=== PATIENT | female | born 1980 | race Two or more races ===

== ENCOUNTER → 2020-06-08 08:26 | Outpatient (BNVA) | payer OTHER, SELFPAY | PROVIDERS: PCP Internal Medicine; Visit Provider Obstetrics & Gynecology | DX: Z01.818 Encounter for other preprocedural examination (principal); N92.1 Excessive and frequent menstruation with irregular cycle; D25.9 Leiomyoma of uterus, unspecified | CPT/HCPCS: 99212 ==

== ENCOUNTER 2020-06-13 05:31 | Inpatient (IN) | payer OTHER, SELFPAY ==
--- NOTE | 2020-06-10 14:22 | P.CONAN_ITS ---
Documented by User: Khloe Castellanos 06/10/20 14:22 HPI - Anesthesia Eval Consult details Narrative: 39yo F for Hysterectomy Total Abdominal, Bilateral Salpingectomy COUNTS INCLUDE 234 BEDS AT THE [facility] Past Medical History Medical History Depression Kidney stones Migraines Seizures Surgical History Surgical History History of bilateral tubal ligation Social History Social History Alcohol intake: never Smoking Status: Never smoker Use of substances other than those prescribed or required for medical reasons: No Advance Directives: No Advance Directives Information Provided: No Recently lost weight without trying: No Sexual orientation: Straight/Heterosexual Gender identity: female Meds Allergies Allergy/AdvReac Type Severity Reaction Status Date / Time apple [Apple] Allergy Unknown LIPS SWELL Verified 06/13/20 09:34 Latex, Natural Rubber AdvReac Mild TOPICAL Verified 06/13/20 09:35 IRRITANT Home Medications Medication Instructions Recorded Confirmed Type No Known Home Meds 06/08/20 06/08/20 History Exam Exam Date and Time: June 10, 2020 1422 Assessment and Plan Assessment Anesthesia Assessment: Chart Reviewed Documented by User: Johny Valdez 06/13/20 09:37 COUNTS INCLUDE 234 BEDS AT THE [facility] Past Medical History Medical History Depression Kidney stones Migraines Seizures Surgical History Surgical History History of bilateral tubal ligation Social History Social History Alcohol intake: never Smoking Status: Never smoker Use of substances other than those prescribed or required for medical reasons: No Advance Directives: No Advance Directives Information Provided: No Recently lost weight without trying: No Sexual orientation: Straight/Heterosexual Gender identity: female Meds Allergies Allergy/AdvReac Type Severity Reaction Status Date / Time apple [Apple] Allergy Unknown LIPS SWELL Verified 06/13/20 09:34 Latex, Natural Rubber AdvReac Mild TOPICAL Verified 06/13/20 09:35 IRRITANT Home Medications Medication Instructions Recorded Confirmed Type No Known Home Meds 06/08/20 06/08/20 History Exam Airway Mallampati Class: II TM Dist: >3cm Neck ROM: Full Loose/Missing/Broken Teeth: Yes (#9 chipped, others w less prominent surface irregularities. Several missing) Heart: RRR Assessment and Plan Assessment Anesthesia Assessment: Anesthesia Plan Discussed Final Anesthetic Review NPO: Yes ASA Class: II Anesthetic Plan Anesthetic Plan: GA Disposition: Standard PACU
[2020-06-13] VITALS (16 sets, daily range): BP systolic 120–145; BP diastolic 69–91; PULSE 75–95; RESP 14–18; TEMP 36.5–36.8; O2SAT 92–99; BMI 30.9
[2020-06-13 09:01] LABS: UPreg QC Valid YES; Urine Pregnancy NEGATIVE (NEGATIVE)
--- NOTE | 2020-06-13 09:33 | PC.NURSE ---
CALLED LAB TWICE TO DRAW PATIENT.
--- NOTE | 2020-06-13 09:42 | PC.NURSE ---
RECALLED LAB AGAIN.
[2020-06-13 09:50] LABS: SARS COV2 PCR INHOUSE NEGATIVE (Negative)
--- NOTE | 2020-06-13 09:50 | PC.NURSE ---
PATIENT HAVING LAB DRAWN
[2020-06-13 09:59] LABS: Hematocrit 39.4 % (37-47); Hemoglobin 12.6 g/dl (12.0-16.0); Mean Corpuscular Hemoglobin 29.6 pg (27.0-33.0); Mean Corpuscular Volume 92.5 fL (80-98); Mean Platelet Volume 9.7 fL (9.4-12.3); Platelet Count 334 X10*3/uL (160-400); Red Blood Count 4.26 X10*6/uL (4.20-5.50); Red Cell Distribution Width 12.8 % (11.0-16.0); White Blood Count 6.6 X10*3/uL (4.8-10.8)
--- NOTE | 2020-06-13 10:01 | MHC.SHP ---
Pre-Procedural Eval Section A The patient is an INPATIENT: No Changes since office visit: No Cold of Flu in the past 2 weeks, No New Medical Problems, No Changes in Medication and No Patient answered all questions The History & Physical has been completed within 30 days and I have reviewed it.: Yes Section B Chief Complaint: Metrorrhagia Allergies: Allergies Allergy/AdvReac Type Severity Reaction Status Date / Time apple [Apple] Allergy Unknown LIPS SWELL Verified 06/13/20 09:34 Latex, Natural Rubber AdvReac Mild TOPICAL Verified 06/13/20 09:35 IRRITANT Plan Diagnosis/Plan: Unchanged Patient has been examined and remains a candidate for the planned procedure
[2020-06-13] MEDS: Lactated Ringers 1,000 ML 100 ML IVCONT (10:12)
[2020-06-13] MEDS: ceFAZolin Sodium/Dextrose,Iso 2 GM/50 ML PIGGYBACK IV (10:12)
--- NOTE | 2020-06-13 10:51 | PC.NURSE ---
md rodriguez awaiting lab results for blood type and antibody
--- NOTE | 2020-06-13 13:24 | P.OP_ITS ---
Operative Note Operative Note Narrative: PREOPERATIVE DIAGNOSES: 1. Severe menometrorrhagia unresponsive to medical therapy. 2. Symptomatic fibroid uterus. POSTOPERATIVE DIAGNOSES: 1. Severe menometrorrhagia unresponsive to medical therapy. 2. Symptomatic fibroid uterus. PROCEDURE: Total abdominal hysterectomy& Bilateral salpingectomy ANESTHESIA: General. ESTIMATED BLOOD LOSS: 100 mL. COMPLICATIONS: None. FINDING: Fibroid uterus. SPECIMEN:Uterus, cervix and bilateral fallopin tubes. PROCEDURE IN DETAIL: The patient was prepped and draped in the usual sterile fashion for an abdominal procedure. A scalpel was used to make a midline skin incision, which was carried down sharply through the subcutaneous tissue to the fascia. The fascia was nicked in the midline and incision was carried at the upper and lower edge of the incision with curved Tiwari scissors. The rectus abdominis muscles were sep arated in the midline. The peritoneum was then bluntly entered and this incision was carried down inferiorly and superiorly with care taken to avoid bladder and bowel. The O'Catalino-O'Medellin instrument was then placed without difficulty. The uterus was grasped with 2 Heany clamps on both cornual ends of the uterus and the entire pelvis was then visualized without difficulty. The Right round ligament was grasped with a Heany clamp, suture ligated and transacted using #0 Vycril suture ligature, and the anterior peritoneum dissected down to the bladder flap which was then developed free from the uterus without difficulty.The same was performed on the left side. The utero-ovarian ligaments on both sides were ligated, transacted and sutured using #0 Vycril suture ligature after opening a fenestration in the braod ligament on each side. Careful dissection of the uterus from the pedicle with the uterine arteries and cardinal ligaments was then ligated, transectioned and suture ligated using #0 Vycril suture ligature in an interrupted fashion on the left and right side. This was done without difficulty. The cervix was then developed with careful dissection. Joseluis scissors were then used to remove the cervix from the vaginal cuff. This specimen was sent to pathology. Hemostasis was noted at this point of the procedure. A #0 Vicryl suture ligature was then used in a figure of eight fashion at the angles. Hemostasis was again noted. Atdqfg-gq-hzaxm sutures were then used in an interrupted fashion to close the cuff. Hemostasis was again noted. The entire pelvis was washed. Hemostasis was noted. The fascia was closed using #0 PDS suture in a running fashion. The subQ was closed with 2.0 plane since the thickness is more than 2 cm. The skin was closed with staple gun. Sponge and needle counts were noted to be correct x2 at the end of the procedure. Instrument count was noted to be correct x2 at the end of the procedure. Hemostasis was noted at each level of closure. The patient tolerated the procedure well and went to recovery room in good condition. Cafazolin 2 g IV given preop prior to incision. The patient tolerated the procedure well and was transferred to the PACU in a stable condition. Steen was draining clera urine.
--- NOTE | 2020-06-13 13:43 | PM.OP ---
Brief Operative Note Date of procedure: 06/13/20 Post-op diagnosis: same Procedure: Total abdominal hysterectomy and bilateral salpingectomies Surgeon: Owen Juárez MD Anesthesia: GETA Estimated blood loss (mL): 100 Pathology: other (Right & left fallopian tubes) Condition: stable Disposition: PACU
[2020-06-13] MEDS: Lactated Ringers 1,000 ML 125 ML IVCONT ×2 (13:48→22:34)
[2020-06-13] MEDS: Ketorolac Tromethamine 30 MG/ML VIAL IV (18:02)
[2020-06-13] MEDS: oxyCODONE HCl Immed Release 5 MG TABLET PO (19:46)
[2020-06-13] MEDS: oxyCODONE HCl ER 10 MG TAB.ER.12H PO (22:00)
[2020-06-14] VITALS (7 sets, daily range): BP systolic 103–138; BP diastolic 56–75; PULSE 73–86; RESP 14–18; TEMP 36.4–37.2; O2SAT 1–100; BMI 30.9
[2020-06-14] MEDS: Ketorolac Tromethamine 30 MG/ML VIAL IV (06:06)
[2020-06-14] MEDS: Lactated Ringers 1,000 ML 125 ML IVCONT (06:09)
[2020-06-14 07:10] LABS: Hematocrit 31.1 % (37-47); Hemoglobin 9.7 g/dl (12.0-16.0); Mean Corpuscular HGB Conc 31.2 g/dl (31.0-35.0); Mean Corpuscular Hemoglobin 29.2 pg (27.0-33.0); Mean Corpuscular Volume 93.7 fL (80-98); Mean Platelet Volume 9.9 fL (9.4-12.3); Platelet Count 325 X10*3/uL (160-400); Red Blood Count 3.32 X10*6/uL (4.20-5.50); White Blood Count 12.7 X10*3/uL (4.8-10.8)
--- NOTE | 2020-06-14 07:42 | P.PNOB_ITS ---
DIRECTOR OPERATIONS BROADCAST - Subjective Subjective Interval history: Doing well. No complaints. On bed rest. Steen in, NPO. 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 Physical Exam Vitals Vital signs: Temp Pulse Resp BP Pulse Ox 97.6 F 80 16 106/68 1 L 06/14/20 04:00 06/14/20 04:00 06/14/20 04:00 06/14/20 04:00 06/14/20 04:00 Body Mass Index 30.9 Incision Incision: Incision C/D/I Lungs Respiratory Effort: No intercostal retractions and No accessory muscle usage Auscultation: Clear to auscultation Cardiovascular Auscultation: RRR Abdomen Auscultation/Inspection/Palpation: Soft, Non-distended and Bowel sounds diminished or absent DIRECTOR OPERATIONS BROADCAST - Prog Note: Results Labs CBC & Chem 7: 06/14/20 06:30 Labs: Laboratory Results - last 24 hr 06/13/20 06/13/20 06/13/20 08:34 08:34 09:51 WBC 6.6 RBC 4.26 Hgb 12.6 Hct 39.4 MCV 92.5 MCH 29.6 MCHC 32.0 RDW 12.8 Plt Count 334 MPV 9.7 Absolute Nucleated RBC 0.000 Nucleated RBC % (auto) 0.0 Urine Test NEGATIVE Coronavirus (PCR) NEGATIVE Blood Type Antibody Screen 06/13/20 06/14/20 09:51 06:30 WBC 12.7 H RBC 3.32 L D Hgb 9.7 L D Hct 31.1 L D MCV 93.7 MCH 29.2 MCHC 31.2 RDW 13.0 Plt Count 325 MPV 9.9 Absolute Nucleated RBC 0.000 Nucleated RBC % (auto) 0.0 Urine Test Coronavirus (PCR) Blood Type O Positive Antibody Screen NEGATIVE DIRECTOR OPERATIONS BROADCAST - A/P (1) Metrorrhagia: Problem details: large sxtic myoma Status: Acute Assessment and Plan: Discussed with the patient the intraoperative findings. All questions answered, patient verbalized understanding (2) S/P ARVIN (total abdominal hysterectomy): Problem details: with bilateral salpingectomy Status: Acute Assessment and Plan: Clear liquid diet, hep lock IV when tolerated convert Toradol ibuprofen, ambulate, advance diet as tolerated, DC Steen, call patient does not void in hours. Oxycodone, ibuprofen, Tylenol p.r.n. analgesia. Assessment/Plan Procedure/Diagnosis: Procedures Operation Date: 06/13/20 10:00 Actual Procedures Side Surgeon p Hysterectomy Total Abdominal, Bilateral Salpingectomy Not Applicable Owen Juárez MD Time Spent With Patient Time: Total time spent is greater than 50% in coordination of care (as documented) at patient's floor/unit and/or counseling patient: Time with patient: 15 - 24 minutes
[2020-06-14] MEDS: oxyCODONE HCl ER 10 MG TAB.ER.12H PO ×2 (08:39→22:07)
--- NOTE | 2020-06-14 08:47 | MHC.CM.PN ---
PATIENT IS FULLY INDEPENDENT. NO DME OR [facility]NA SERVICES. SHE WILL NEED A WORK NOTE UPON DISCHARGE, INDICATING DAYS SPENT HERE. ACCORDING TO PATIENT, SHE IS ANTICIPATED TO REMAIN FOR 2-3 DAYS FOLLOWING HER PROCEDURE YESTERDAY CASE MANAGEMENT AVAILABLE FOR ANY DISCHARGE NEEDS.
--- NOTE | 2020-06-14 09:22 | HO.POSTANES ---
Post Anesthesia Evaluation Post Anesthesia Evaluation Vital Signs: Vital Signs Temp Pulse Resp BP Pulse Ox 06/14/20 07:41 98.8 F 73 16 110/66 100 06/14/20 04:00 97.6 F 80 16 106/68 1 L 06/14/20 00:00 98.9 F 83 14 138/75 99 Anesthesia: General Endotracheal-GETA Mental Status: Awake Pain Control: Satisfactory Nausea/Vomiting: None Hydration: Adequate Anesthesia-Related Issues: No Anes. Related Issues
[2020-06-14] MEDS: oxyCODONE HCl Immed Release 5 MG TABLET PO ×2 (10:24→17:03)
[2020-06-14] MEDS: ondansetron HCL 4 MG/2 ML VIAL IVPUSH (18:29)
[2020-06-15 04:00] VITALS: BP 109/62; PULSE 85; RESP 14; TEMP 36.6; O2SAT 95
[2020-06-15] MEDS: oxyCODONE HCl Immed Release 5 MG TABLET PO (06:49)
[2020-06-15 07:54] VITALS: BP 112/58; PULSE 89; RESP 18; TEMP 36.6; O2SAT 95
[2020-06-15] MEDS: oxyCODONE HCl ER 10 MG TAB.ER.12H PO ×2 (09:52→21:11)
[2020-06-15] MEDS: Acetaminophen 325 MG TABLET 650 MG PO ×2 (09:53→20:02)
[2020-06-15 12:00] VITALS: BP 112/35; PULSE 68; RESP 17; TEMP 36.3; O2SAT 95
--- NOTE | 2020-06-15 12:50 | P.PNOB_ITS ---
ROTOR BLADE INSTALLER - Subjective Subjective Interval history: Doing well. No complaints. Ambulating Steen out, tolerating a regular diet. 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 Physical Exam Vitals Vital signs: Temp Pulse Resp BP Pulse Ox 97.9 F 89 18 112/58 L 95 06/15/20 07:54 06/15/20 07:54 06/15/20 07:54 06/15/20 07:54 06/15/20 07:54 Body Mass Index 30.9 Incision Incision: Incision C/D/I Lungs Respiratory Effort: No intercostal retractions and No accessory muscle usage Auscultation: Clear to auscultation Cardiovascular Auscultation: RRR Abdomen Auscultation/Inspection/Palpation: Soft, Non-distended and Bowel sounds diminished or absent ROTOR BLADE INSTALLER - Prog Note: Results Labs CBC & Chem 7: 06/14/20 06:30 ROTOR BLADE INSTALLER - A/P (1) Metrorrhagia: Problem details: large sxtic myoma Status: Acute (2) S/P ARVIN (total abdominal hysterectomy): Problem details: with bilateral salpingectomy Status: Acute Assessment and Plan: Will discharge the patient home, oxycodone 5 mg p.o. Q 3-4 p.r.n. pain, ibuprofen 600 mg p.o. Q 6 hours p.r.n. pain. No up and down the steps no sexual intercourse no driving. Instructions to call if any of the following occur temperature above 100.4, severe abdominal pain, abdominal distention, nausea or vomiting, vaginal bleeding, incisional gapping redness or discharge. Follow up in the office in 2 weeks for incision check and in 4 weeks for postop visit. She is all questions answered patient verbalized understanding. Assessment/Plan Procedure/Diagnosis: Procedures Operation Date: 06/13/20 10:00 Actual Procedures Side Surgeon p Hysterectomy Total Abdominal, Bilateral Salpingectomy Not Applicable Owen Juárez MD Time Spent With Patient Time: Total time spent is greater than 50% in coordination of care (as documented) at patient's floor/unit and/or counseling patient: Time with patient: 15 - 24 minutes
--- NOTE | 2020-06-15 12:55 | P.DS_ITS ---
DS: Providers Provider Date of admission: 06/13/20 05:31 Primary care physician: Delmy Millan MD DS: Diagnosis Discharge Diagnosis (1) Metrorrhagia: Status: Acute Problem details: large sxtic myoma (2) S/P ARVIN (total abdominal hysterectomy): Status: Acute Problem details: with bilateral salpingectomy DS: Medications Discharge Medications Home Medications: Home Medications Oxycodone 5 mg p.o. Q 3-4 p.r.n. pain Ibuprofen 600 mg p.o. Q 6 hours p.r.n. pain. 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 Follow up in the office in 2 weeks for incisional check and 4 weeks for postop visit) Diet: advance to your usual diet
[2020-06-15 15:21] VITALS: BP 101/62; PULSE 91; RESP 18; TEMP 36.7; O2SAT 97
[2020-06-15 19:34] VITALS: BP 112/65; PULSE 88; RESP 17; TEMP 37.1; O2SAT 100
[2020-06-15 23:21] VITALS: BP 101/50; PULSE 81; RESP 19; TEMP 36.3; O2SAT 96
[2020-06-16 04:00] VITALS: BP 107/50; PULSE 86; RESP 19; TEMP 36.4; O2SAT 96
[2020-06-16 08:00] VITALS: BP 111/53; PULSE 89; RESP 19; TEMP 36.7; O2SAT 90
[2020-06-16 08:04] LABS: Glucose, Whole Blood 92 mg/dL (60-115)
--- NOTE | 2020-06-16 08:38 | P.PNOB_ITS ---
AUTO FLEET MAINTENANCE MANAGER - Subjective Subjective Interval history: Doing well. No complaints. Ambulating , the patient developed nausea after regular diet yesterday so she was kept overnight but had dinner andis a tolerating a regular diet. Subjective Findings: Ambulating well: Reports, Flatus passed: Reports, Nausea: Denies and Pain controlled: Reports LURER Physical Exam Vitals Vital signs: Temp Pulse Resp BP Pulse Ox 98.0 F 89 19 111/53 L 90 L 06/16/20 08:00 06/16/20 08:00 06/16/20 08:00 06/16/20 08:00 06/16/20 08:00 Body Mass Index 30.9 Incision Incision: Incision C/D/I Lungs Respiratory Effort: No intercostal retractions and No accessory muscle usage Auscultation: Clear to auscultation Cardiovascular Auscultation: RRR Abdomen Auscultation/Inspection/Palpation: Soft, Non-distended and Bowel sounds diminished or absent AUTO FLEET MAINTENANCE MANAGER - Prog Note: Results Labs CBC & Chem 7: 06/14/20 06:30 Labs: Laboratory Results - last 24 hr 06/16/20 07:12 POC Glucose 92 AUTO FLEET MAINTENANCE MANAGER - A/P (1) Metrorrhagia: Problem details: large sxtic myoma (2) S/P ARVIN (total abdominal hysterectomy): Problem details: with bilateral salpingectomy Assessment and Plan: Will discharge thw patient home, to follow up in 4 days for staple removal, oxycodone 5 mg p.o. Q 3-4 p.r.n. pain, ibuprofen 600 mg p.o. Q 6 p.r.n. pain, call for the following: Temperature above 100.4, abdominal pain, or distention incision redness or gapping or discharge, vaginal bleeding nausea and vomiting. All questions answered patient verbalized understanding. Assessment/Plan Procedure/Diagnosis: Procedures Operation Date: 06/13/20 10:00 Actual Procedures Side Surgeon p Hysterectomy Total Abdominal, Bilateral Salpingectomy Not Applicable Owen Juárez MD Time Spent With Patient Time: Total time spent is greater than 50% in coordination of care (as docu mented) at patient's floor/unit and/or counseling patient: Time with patient: 15 - 24 minutes
--- NOTE | 2020-06-16 08:46 | MHC.CM.PN ---
PATIENT IS DISCHARGED HOME WITH NO SERVICES. FAMILY TO TRANSPORT. RN AWARE OF PLAN.
[2020-06-16] MEDS: oxyCODONE HCl ER 10 MG TAB.ER.12H PO (08:53)
[2020-06-16 11:57] VITALS: BP 114/66; PULSE 85; RESP 19; TEMP 36.8; O2SAT 96
[2020-06-16] MEDS: Acetaminophen 325 MG TABLET 650 MG PO (13:52)
== END 2020-06-16 15:30 | disposition home or self-care (01) | DRG 519 ==
LOC: HO.SSSA 15:29 → HO.S3 16:11
PROVIDERS: Admitting Provider Obstetrics & Gynecology; PCP Internal Medicine; Visit Provider Obstetrics & Gynecology
PROC: 0UT90ZZ Resection of Uterus, Open Approach (ICD-10-PCS; principal; 2020-06-13 10:00)
DX: D25.9 Leiomyoma of uterus, unspecified (principal); F32.9 Major depressive disorder, single episode, unspecified; Z20.828 Contact with and (suspected) exposure to other viral communicable diseases; Z87.442 Personal history of urinary calculi
CPT/HCPCS: 36415; 81025; 82947; 85027; 86850; 86900; 86901; 88307; 88309; J0131; J0330; J0690; J1100; J1170; J1885; J2250; J2405; J3010; U0003

== ENCOUNTER 2020-06-18 21:23 | Inpatient (IN) | payer OTHER, SELFPAY ==
[2020-06-18 21:39] VITALS: BP 91/59; PULSE 103; RESP 14; TEMP 37.9; O2SAT 95; BMI 31.0
--- NOTE | 2020-06-18 21:45 | ED.FEVER ---
HPI - Fever General Chief Complaint: Fever Stated Complaint: Fever Time Seen by Provider: 06/18/20 21:45 Source: patient Mode of arrival: ambulatory Limitations: no limitations History of Present Illness HPI Narrative: This is a 39-year-old female who is postop day 5 status post total abdominal hysterectomy and bilateral salpingectomy. she states that she has been working with the incentive spirometer and describes some urinary frequency but today states that she developed some body aches as well as chills. The patient called the office the surgeon and was told to come into the emergency department. Otherwise, she denies any sore throat, cough, shortness of breath, chest pain / palpitations, GI symptoms. Related Data Home Medications Medication Instructions Recorded Confirmed No Known Home Meds 06/08/20 06/13/20 Previous Rx's Medication Instructions Recorded ibuprofen 600 mg PO Q6H PRN #30 tab 06/15/20 oxycodone 5 mg PO Q3H PRN #20 tab 06/15/20 Allergies Allergy/AdvReac Type Severity Reaction Status Date / Time apple [Apple] Allergy Unknown LIPS SWELL Verified 06/13/20 09:34 Latex, Natural Rubber AdvReac Mild TOPICAL Verified 06/13/20 09:35 IRRITANT Review of Systems Review of Systems: Pertinent positives and negatives as stated in HPI 10 point review of systems otherwise negative. FORMERLY [facility] Past Medical History Source: nursing notes reviewed Medical History Depression Kidney stones Metrorrhagia Migraines Seizures Surgical History History of bilateral tubal ligation S/P ARVIN (total abdominal hysterectomy) Social History Social History Household Members: Spouse Housing: House Alcohol intake: never Smoking Status: Never smoker Use of substances other than those prescribed or required for medical reasons: No Advance Directives: No service: No Current occupational status: employed Sexual orientation: Straight/Heterosexual Gender identity: female Physical Exam Vital Signs: Vital Signs: Last Vital Signs Temp 98.1 F 06/19/20 00:00 Pulse 100 06/19/20 00:00 Resp 16 06/19/20 00:00 BP 115/56 L 06/19/20 00:00 Pulse Ox 100 06/19/20 00:00 Body Mass Index 31.0 VITAL SIGNS: Reviewed. GENERAL: Well developed, well nourished, in no acute distress. HEAD: Normocephalic/atraumatic, EYES: PERRLA, EOMI intact without pain, no nystagmus/pallor/icterus noted EARS: Ext canals without abnormality, TMs non-bulging and non-erythematous NOSE: Nares patent bilateral OROPHARYNX: no oral lesions noted, posterior pharynx clear and non-erythematous without noted tonsillar enlargement/erythema/exudates NECK: Supple, no adenopathy LUNGS: Normal breath sounds. No adventitious sounds or accessory muscle use. SpO2<100> CARDIOVASCULAR: Regular rate and rhythm without noted murmurs, no JVD or lower extremity edema. ABDOMEN: Soft, non-tender, non-distended with bowel sounds. No rigidity. No guarding. No palpable masses or hernias noted, Lower vertical incision without erythema / discharge/induration with good approximation with kana. MUSCULOSKELETAL: No tenderness, deformities, or effusions noted on gross inspection. EXTREMITIES: No cyanosis, clubbing or edema. SKIN: Inspection of the skin reveals no rashes, ulcerations, jaundice, pallor, or petechiae. NEUROLOGIC: Alert and oriented x 4. Strength and sensation to light touch were grossly intact x 4. Course Course Course Narrative: This is a 39-year-old female with history and clinical presentation concerning for possible postsurgical infection versus UTI versus viral illness. Patient was treated with Tylenol for her fever and good resolution. This case was discussed with public service representative, Dr. Juárez who recommends to proceed with CT scan. On review of all investigations there is a noted persistent leukocytosis and CT scan findings suggestive of possible abscess. Review of urinalysis is negative for evidence of infection and chest x-ray is without acute findings. These results and findings were discussed with Dr. Juárez who will be accepting admission of the patient and is recommending initial antibiotics of 2 g of Rocephin and 900 mg of clindamycin. Patient was treated and worked up under the sepsis guidelines. Due to noted elevation of the total bilirubin patient meets severe sepsis criteria. MDM - Fever Lab Data Result diagrams: 06/18/20 22:09 06/18/20 22:09 Labs: Lab Results 06/18/20 06/18/20 06/18/20 Range/Units 22:09 22:09 22:09 WBC 12.7 H (4.8-10.8) X10*3/uL RBC 2.98 L (4.20-5.50) X10*6/uL Hgb 8.9 L (12.0-16.0) g/dl Hct 28.0 L (37-47) % MCV 94.0 (80-98) fL MCH 29.9 (27.0-33.0) pg MCHC 31.8 (31.0-35.0) g/dl RDW 13.2 (11.0-16.0) % Plt Count 403 H (160-400) X10*3/uL MPV 9.4 (9.4-12.3) fL Immature Gran % (Auto) 0.5 H (0.0-0.4) % Neut % (Auto) 82.4 H (45-73) % Lymph % (Auto) 9.6 L (20-40) % [place] % (Auto) 6.1 (2-11) % Eos % (Auto) 1.2 (0-4) % Baso % (Auto) 0.2 (0-2) % Lymph # (Auto) 1.2 (1.2-4.9) X10*3/uL [place] # (Auto) 0.8 (0.1-1.2) X10*3/uL Eos # (Auto) 0.2 (0.0-0.4) X10*3/uL Baso # (Auto) 0.0 (0.0-0.2) X10*3/uL Abs Immat Gran (auto) 0.06 H (0.00-0.03) X10*3/uL Absolute Neuts (auto) 10.4 H (2.0-8.3) X10*3/uL Absolute Nucleated RBC 0.000 (0.0-0.012) X10*3/uL Nucleated RBC % (auto) 0.0 (0.0-0.2) /100WBC Sodium 134 L (135-145) mmol/L Potassium 4.0 (3.3-5.1) mmol/l Chloride 101 (96-108) mmol/L Carbon Dioxide 24 (22-29) mmol/L Anion Gap 13 (12-20) BUN 8 L (9-16) mg/dL Creatinine 0.70 (0.5-1.4) mg/dL Estim Creat Clear Calc 109.6 Estimated GFR > 60 Random Glucose 123 H (60-115) mg/dL Lactic Acid 1.1 (0.5-2.0) mmol/L Calcium 8.0 L (8.4-10.2) mg/dL Total Bilirubin 1.2 H (0.0-1.0) mg/dL AST 18 (5-31) U/L ALT 18 (0-31) U/L Alkaline Phosphatase 53 (39-117) U/L Total Protein 6.4 L (6.5-8.0) g/dL Albumin 3.7 (3.5-5.0) g/dL Urine Color Urine Appearance Urine pH (5.0-8.0) Ur Specific [place] (1.005-1.025) Urine Protein (NEG-TRACE) MG/DL Urine Glucose (UA) (NEG) MG/DL Urine Ketones (NEG) MG/DL Urine Blood (NEG) Urine Nitrite (NEG) Ur Leukocyte Esterase (NEG) Urine RBC (0) /HPF Urine WBC (0-4) /HPF Ur Squamous Epith Cells /LPF Urine Bacteria /LPF 06/18/ Range/Units 23:27 WBC (4.8-10.8) X10*3/uL RBC (4.20-5.50) X10*6/uL Hgb (12.0-16.0) g/dl Hct (37-47) % MCV (80-98) fL MCH (27.0-33.0) pg MCHC (31.0-35.0) g/dl RDW (11.0-16.0) % Plt Count (160-400) X10*3/uL MPV (9.4-12.3) fL Immature Gran % (Auto) (0.0-0.4) % Neut % (Auto) (45-73) % Lymph % (Auto) (20-40) % [place] % (Auto) (2-11) % Eos % (Auto) (0-4) % Baso % (Auto) (0-2) % Lymph # (Auto) (1.2-4.9) X10*3/uL [place] # (Auto) (0.1-1.2) X10*3/uL Eos # (Auto) (0.0-0.4) X10*3/uL Baso # (Auto) (0.0-0.2) X10*3/uL Abs Immat Gran (auto) (0.00-0.03) X10*3/uL Absolute Neuts (auto) (2.0-8.3) X10*3/uL Absolute Nucleated RBC (0.0-0.012) X10*3/uL Nucleated RBC % (auto) (0.0-0.2) /100WBC Sodium (135-145) mmol/L Potassium (3.3-5.1) mmol/l Chloride (96-108) mmol/L Carbon Dioxide (22-29) mmol/L Anion Gap (12-20) BUN (9-16) mg/dL Creatinine (0.5-1.4) mg/dL Estim Creat Clear Calc Estimated GFR Random Glucose (60-115) mg/dL Lactic Acid (0.5-2.0) mmol/L Calcium (8.4-10.2) mg/dL Total Bilirubin (0.0-1.0) mg/dL AST (5-31) U/L ALT (0-31) U/L Alkaline Phosphatase (39-117) U/L Total Protein (6.5-8.0) g/dL Albumin (3.5-5.0) g/dL Urine Color STRAW Urine Appearance CLEAR Urine pH 5.5 (5.0-8.0) Ur Specific [place] <= 1.005 (1.005-1.025) Urine Protein NEG (NEG-TRACE) MG/DL Urine Glucose (UA) NEG (NEG) MG/DL Urine Ketones NEG (NEG) MG/DL Urine Blood TRACE (NEG) Urine Nitrite NEG (NEG) Ur Leukocyte Esterase NEG (NEG) Urine RBC 0 (0) /HPF Urine WBC 0 (0-4) /HPF Ur Squamous Epith Cells 1+ /LPF Urine Bacteria NONE /LPF Discharge Plan Discharge Clinical Impression: Pelvic abscess, Severe sepsis Patient Disposition: Admitted As Inpatient Prescriptions: No Action ibuprofen 600 mg Tablet 600 mg PO Q6H PRN (Reason: Pain, Moderate (Pain Scale 4-6)) Qty: 30 RF: 0 oxycodone 5 mg Tablet 5 mg PO Q3H PRN (Reason: Pain, Moderate (Pain Scale 4-6) Qty: 20 RF: 0 No Known Home Meds RF: 0
--- NOTE | 2020-06-18 21:48 | XR_ITS ---
EXAMINATION: XR CHEST CLINICAL INFORMATION: Baseline COMPARISON: 09/24/2019 TECHNIQUE: Frontal view of the chest was obtained. FINDINGS: No significant abnormality is noted involving the heart, lungs, mediastinum, bony thorax or soft tissues. XR/XR chest 1V IMPRESSION: Unremarkable examination.
[2020-06-18] MEDS: Acetaminophen 325 MG TABLET 975 MG PO (21:54)
[2020-06-18 22:00] VITALS: BP 106/52; PULSE 97; RESP 16; TEMP 38.1; O2SAT 97
[2020-06-18 22:15] LABS: MANUAL DIFF FLAG NO
[2020-06-18 22:16] LABS: Basophils Percent Auto 0.2 % (0-2); Eosinophils Absolute Auto 0.2 X10*3/uL (0.0-0.4); Eosinophils Percent Auto 1.2 % (0-4); Hemoglobin 8.9 g/dl (12.0-16.0); Imm Gran Abs Auto 0.06 X10*3/uL (0.00-0.03); Imm Gran Pct Auto 0.5 % (0.0-0.4); Lymphocytes Absolute Auto 1.2 X10*3/uL (1.2-4.9); Lymphocytes Percent Auto 9.6 % (20-40); Mean Corpuscular HGB Conc 31.8 g/dl (31.0-35.0); Mean Corpuscular Hemoglobin 29.9 pg (27.0-33.0); Mean Platelet Volume 9.4 fL (9.4-12.3); Monocytes Absolute Auto 0.8 X10*3/uL (0.1-1.2); Monocytes Percent Auto 6.1 % (2-11); Neutrophils Absolute Auto 10.4 X10*3/uL (2.0-8.3); Neutrophils Percent Auto 82.4 % (45-73); Platelet Count 403 X10*3/uL (160-400); Red Blood Count 2.98 X10*6/uL (4.20-5.50); Red Cell Distribution Width 13.2 % (11.0-16.0); White Blood Count 12.7 X10*3/uL (4.8-10.8)
[2020-06-18] MEDS: 0.9 % Sodium Chloride 2,460 ML 999 ML IV (22:25)
[2020-06-18 22:40] LABS: Lactic Acid 1.1 mmol/L (0.5-2.0)
[2020-06-18 22:44] LABS: Alanine Aminotransferase 18 U/L (0-31); Albumin Level 3.7 g/dL (3.5-5.0); Alkaline Phosphatase 53 U/L (39-117); Anion Gap 13 (12-20); Aspartate Amino Transferase 18 U/L (5-31); Bilirubin Total 1.2 mg/dL (0.0-1.0); Blood Urea Nitrogen 8 mg/dL (9-16); Carbon Dioxide 24 mmol/L (22-29); Chloride 101 mmol/L (96-108); Creatinine Clr Calc Pharmacy 109.6; Estimated Glomerular Filt Rate > 60; Glucose Random 123 mg/dL (60-115); Sodium 134 mmol/L (135-145); Total Protein 6.4 g/dL (6.5-8.0)
--- NOTE | 2020-06-18 23:05 | CT_ITS ---
EXAMINATION: CT ABDOMEN AND PELVIS WITH CONTRAST CLINICAL INFORMATION: Abdominal pain. Postop day 5 status post ARVIN. COMPARISON: Pelvic ultrasound from 01/05/2020. Abdominal and pelvic CT from 04/15/2008. TECHNIQUE: Contiguous axial thin section helical images of the abdomen and pelvis were performed following the administration of 85 mL of intravenous Omnipaque 350. The data set was reformatted in the coronal and sagittal planes and reviewed on an independent workstation. DLP: 663 mGy-cm. FINDINGS: The visualized lung bases are clear. The visualized portions of the heart are unremarkable. The liver is of normal size and attenuation without focal lesions nor intrahepatic biliary ductal dilation. A normal gallbladder is identified. There is no wall thickening or discernible pericholecystic fluid. The spleen, pancreas, adrenal glands are unremarkable. Both kidneys are of normal size and attenuation without hydronephrosis or nephrolithiasis. Following the administration of IV contrast, prompt symmetric nephrograms are displayed. There is no abdominal free fluid. The uterus is absent. Posterior to the urinary bladder, there is an approximately 3.8 cm heterogeneous predominantly low-attenuation focus with flecks of gas. This is surrounded by a wall with mild enhancement. There is a moderate amount of adjacent pelvic free fluid. There is a small amount of free fluid within both lower quadrants. Midline inferior to the umbilicus, there are surgical kana present and subcutaneous anterior abdominal wall fat stranding consistent with recent surgery. Normal unopacified loops of small and large bowel are identified. There is no pelvic free fluid. The urinary bladder is unremarkable. There is neither pelvic nor inguinal lymphadenopathy. Bone windows: Neither sclerotic nor lytic bone lesions are identified. CT/CT abdomen pelvis w con IMPRESSION: Approximately 3.8 cm mixed attenuation predominantly low-attenuation soft tissue focus present at the previous location of the uterus with adjacent wall enhancement and free fluid concerning for being product support representative of an abscess with several flecks of gas either retained or product support representative of a gas producing organism. Automated exposure control (Care Dose) Adjustment of the mA and/or kv according to patient size (this includes techniques or standardized protocols for targeted exams where dose is matched to indication / reason for exam; i.e. extremities or head).
--- NOTE | 2020-06-18 23:17 | PC.NURSE ---
PT OOB TO BATHROOM WITH SLOW STEADY GAIT. WAITING URINE COLLECTION
[2020-06-18 23:30] VITALS: BP 107/62; PULSE 90; RESP 16; TEMP 37.2; O2SAT 97
[2020-06-18 23:37] LABS: Glucose Urine UA NEG (NEG); Leukocyte Esterase Urine NEG (NEG); Nitrite Urine NEG (NEG); PH 5.5 (5.0-8.0); Specific Gravity - Urine <= 1.005 (1.005-1.025); Urine Blood TRACE (NEG); Urine Ketones NEG (NEG); Urine Protein NEG (NEG-TRACE)
[2020-06-18 23:38] LABS: Appearance Urine CLEAR; Color Urine STRAW
[2020-06-18 23:44] LABS: RBC Urine 0 /HPF (0); Squamous Epithelial Cell Urine 1+ /LPF; WBC Urine 0 /HPF (0-4)
[2020-06-18] MEDS: iohexoL 350 MG/ML 100 ML INFUS..BTL 85 ML IV (23:46)
[2020-06-19] VITALS (7 sets, daily range): BP systolic 100–132; BP diastolic 56–71; PULSE 89–105; RESP 16–20; TEMP 36.3–37.2; O2SAT 97–100
--- NOTE | 2020-06-19 00:17 | P.HPOB_ITS ---
CLINICAL ASSOC - H&P: HPI History of Present Illness Narrative: Magy Sims is a 39 year old female postop day 5 from a total abdominal hysterectomy bilateral salpingectomy who presented emergency room fever 101.4 no other associated symptoms except for urinary frequency no abdominal pain, no GI or symptoms no vaginal discharge no nausea or vomiting. 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 Review of Systems ROS Unobtainable: All systems reviewed & are unremarkable except as noted in HPI and below OB PMFSH Past Medical History Medical History Compression fracture of T11 vertebra Depression Insomnia Kidney stones Metrorrhagia Migraines Seizures Vitamin D deficiency Family History Family History Father Diabetes Hypertension CVD (cardiovascular disease) Stroke Hypercholesterolemia Mother Diabetes Hypertension Hypercholesterolemia Brother Hypertension Maternal Aunt Breast cancer Maternal Grandmother Cervical cancer Paternal Grandmother Breast cancer Surgical History Surgical History History of bilateral tubal ligation S/P ARVIN (total abdominal hysterectomy) S/P ARVIN (total abdominal hysterectomy) Social History Social History Household Members: Family Housing: House Alcohol intake: never Smoking Status: Never smoker service: No Current occupational status: employed Sexual orientation: Straight/Heterosexual Gender identity: female Meds Allergies Allergy/AdvReac Type Severity Reaction Status Date / Time apple [Apple] Allergy Unknown LIPS SWELL Verified 09/22/20 11:47 Latex, Natural Rubber AdvReac Mild TOPICAL Verified 09/22/20 11:47 IRRITANT CLINICAL ASSOC Physical Exam Vitals Vital signs: Temp Pulse Resp BP Pulse Ox 99.0 F 90 16 107/62 97 06/18/20 23:30 06/18/20 23:30 06/18/20 23:30 06/18/20 23:30 06/18/20 23:30 Body Mass Index 31.0 Incision Incision: Incision C/D/I and No drainage Lungs Auscultation: Clear to auscultation Abdomen Auscultation/Inspection/Palpation: Normal bowel sounds, Soft, Non-distended, No tenderness and No CVA tenderness CLINICAL ASSOC - Results Labs CBC & Chem 7: 06/21/20 05:38 06/18/20 22:09 Labs: Short CBC 06/18/20 Range/Units 22:09 WBC 12.7 H (4.8-10.8) X10*3/uL Hgb 8.9 L (12.0-16.0) g/dl Hct 28.0 L (37-47) % Plt Count 403 H (160-400) X10*3/uL BMP 06/18/20 22:09 Sodium 134 L Potassium 4.0 Chloride 101 Carbon Dioxide 24 BUN 8 L Creatinine 0.70 Calcium 8.0 L Liver Function 06/18/20 Range/Units 22:09 Total Bilirubin 1.2 H (0.0-1.0) mg/dL AST 18 (5-31) U/L ALT 18 (0-31) U/L Alkaline Phosphatase 53 (39-117) U/L Albumin 3.7 (3.5-5.0) g/dL Urine 06/18/20 Range/Units 23:27 Urine Color STRAW Urine Appearance CLEAR Urine pH 5.5 (5.0-8.0) Ur Specific [place] <= 1.005 (1.005-1.025) Urine Protein NEG (NEG-TRACE) MG/DL Urine Glucose (UA) NEG (NEG) MG/DL Assessment and Plan (1) Pelvic abscess: Problem details: June 19 2020 Status post total abdominal hysterectomy and bilateral salpingectomies postop day 6 with pelvic infection/abcess patient received IV ceftriaxone and Flagyl for more than 48 hours and will be discharged home on p.o. surface Cipro/Flagyl p.o. b.i.d. for 14 days Status: Acute Blood cultures taken, lactic acid negative, chest x-ray negative;m pt has mild leukocytosis. Will admit the patient start on antibiotics, Ceftriaxone 2 g IV Q 24 hours, clindamycin 900 mg IV Q 8 till the patient is afebrile for 48 hours and them will discharge home on 14 days p.o. antibiotics
[2020-06-19] MEDS: cefTRIAXone sodium 2 GM in 0.9 % Sodium Chloride 50 ML IV ×2 (01:14→20:58)
[2020-06-19] MEDS: Clindamycin Phosphate/D5W 900 MG/50 ML PIGGYBACK 50 MG IV ×3 (01:14→17:06)
[2020-06-19 01:38] LABS: Influenza A PCR NEGATIVE (Negative); Influenza B PCR NEGATIVE (Negative); Resp Syncy Virus RNA Qual PCR NEGATIVE (Negative); SARS COV2 PCR INHOUSE NEGATIVE (Negative)
[2020-06-19] MEDS: Lactated Ringers 1,000 ML 125 ML IVCONT ×2 (03:32→17:09)
[2020-06-19] MEDS: Acetaminophen 325 MG TABLET 650 MG PO (05:47)
[2020-06-19 07:23] LABS: MANUAL DIFF FLAG NO
[2020-06-19 07:36] LABS: Basophils Percent Auto 0.3 % (0-2); Eosinophils Absolute Auto 0.2 X10*3/uL (0.0-0.4); Eosinophils Percent Auto 1.4 % (0-4); Hematocrit 25.6 % (37-47); Imm Gran Abs Auto 0.06 X10*3/uL (0.00-0.03); Imm Gran Pct Auto 0.5 % (0.0-0.4); Lymphocytes Absolute Auto 1.4 X10*3/uL (1.2-4.9); Lymphocytes Percent Auto 11.8 % (20-40); Mean Corpuscular HGB Conc 31.3 g/dl (31.0-35.0); Mean Corpuscular Hemoglobin 29.3 pg (27.0-33.0); Mean Corpuscular Volume 93.8 fL (80-98); Mean Platelet Volume 10.1 fL (9.4-12.3); Monocytes Absolute Auto 0.9 X10*3/uL (0.1-1.2); Monocytes Percent Auto 7.7 % (2-11); Neutrophils Absolute Auto 9.2 X10*3/uL (2.0-8.3); Neutrophils Percent Auto 78.3 % (45-73); Platelet Count 364 X10*3/uL (160-400); Red Blood Count 2.73 X10*6/uL (4.20-5.50); Red Cell Distribution Width 13.1 % (11.0-16.0); White Blood Count 11.8 X10*3/uL (4.8-10.8)
[2020-06-19] MEDS: Docusate Sodium 100 MG CAPSULE PO (10:04)
--- NOTE | 2020-06-19 10:22 | PM.GYNPNOP ---
INTERNAL CONTROL ANALYST - Subjective Subjective Interval history: Doing well. No complaints. Ambulating, voiding freely, tolerating a regular diet. 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 Exam Vitals Vital signs: Temp Pulse Resp BP Pulse Ox 97.4 F 89 20 101/56 L 98 06/19/20 07:49 06/19/20 07:49 06/19/20 07:49 06/19/20 07:49 06/19/20 07:49 Body Mass Index 31.0 Incision Incision: Incision C/D/I Lungs Respiratory Effort: No intercostal retractions and No accessory muscle usage Auscultation: Clear to auscultation Cardiovascular Auscultation: RRR Abdomen Auscultation/Inspection/Palpation: Normal bowel sounds, Soft and Non-distended INTERNAL CONTROL ANALYST - Prog Note: Results Labs CBC & Chem 7: 06/19/20 06:14 06/18/20 22:09 Labs: Laboratory Results - last 24 hr 06/18/20 06/18/20 06/18/20 22:09 22:09 22:09 WBC 12.7 H RBC 2.98 L Hgb 8.9 L Hct 28.0 L MCV 94.0 MCH 29.9 MCHC 31.8 RDW 13.2 Plt Count 403 H MPV 9.4 Immature Gran % (Auto) 0.5 H Neut % (Auto) 82.4 H Lymph % (Auto) 9.6 L [place] % (Auto) 6.1 Eos % (Auto) 1.2 Baso % (Auto) 0.2 Lymph # (Auto) 1.2 [place] # (Auto) 0.8 Eos # (Auto) 0.2 Baso # (Auto) 0.0 Abs Immat Gran (auto) 0.06 H Absolute Neuts (auto) 10.4 H Absolute Nucleated RBC 0.000 Nucleated RBC % (auto) 0.0 Sodium 134 L Potassium 4.0 Chloride 101 Carbon Dioxide 24 Anion Gap 13 BUN 8 L Creatinine 0.70 Estim Creat Clear Calc 109.6 Estimated GFR > 60 Random Glucose 123 H Lactic Acid 1.1 Calcium 8.0 L Total Bilirubin 1.2 H AST 18 ALT 18 Alkaline Phosphatase 53 Total Protein 6.4 L Albumin 3.7 Urine Color Urine Appearance Urine pH Ur Specific [place] Urine Protein Urine Glucose (UA) Urine Ketones Urine Blood Urine Nitrite Ur Leukocyte Esterase Urine RBC Urine WBC Ur Squamous Epith Cells Urine Bacteria Coronavirus (PCR) Influenza Type A (PCR) Influenza Type B (PCR) RSV RNA Qual (PCR) 06/18/20 06/19/20 06/19/20 23:27 00:25 06:14 WBC 11.8 H RBC 2.73 L Hgb 8.0 L Hct 25.6 L MCV 93.8 MCH 29.3 MCHC 31.3 RDW 13.1 Plt Count 364 MPV 10.1 Immature Gran % (Auto) 0.5 H Neut % (Auto) 78.3 H Lymph % (Auto) 11.8 L [place] % (Auto) 7.7 Eos % (Auto) 1.4 Baso % (Auto) 0.3 Lymph # (Auto) 1.4 [place] # (Auto) 0.9 Eos # (Auto) 0.2 Baso # (Auto) 0.0 Abs Immat Gran (auto) 0.06 H Absolute Neuts (auto) 9.2 H Absolute Nucleated RBC 0.000 Nucleated RBC % (auto) 0.0 Sodium Potassium Chloride Carbon Dioxide Anion Gap BUN Creatinine Estim Creat Clear Calc Estimated GFR Random Glucose Lactic Acid Calcium Total Bilirubin AST ALT Alkaline Phosphatase Total Protein Albumin Urine Color STRAW Urine Appearance CLEAR Urine pH 5.5 Ur Specific [place] <= 1.005 Urine Protein NEG Urine Glucose (UA) NEG Urine Ketones NEG Urine Blood TRACE Urine Nitrite NEG Ur Leukocyte Esterase NEG Urine RBC 0 Urine WBC 0 Ur Squamous Epith Cells 1+ Urine Bacteria NONE Coronavirus (PCR) NEGATIVE Influenza Type A (PCR) NEGATIVE Influenza Type B (PCR) NEGATIVE RSV RNA Qual (PCR) NEGATIVE INTERNAL CONTROL ANALYST - A/P (1) Pelvic abscess: Problem details: Status post total abdominal hysterectomy and bilateral salpingectomies postop day 6 with pelvic infection/abcess Status: Acute Assessment and Plan: Discussed with the patient the finding on CT scan CBC chest x-ray. Will keep patient on the same antibiotics ceftriaxone 2 g IV Q 24 hours with clindamycin 900 mg IV Q 8 for a period of 48 hours wit no fever, Colace p.r.n., ambulate as tolerated, compression devices when in bed. If the patient remains afebrile will discharge home 1 p.o. antibiotics for 14 days. Repeat CBC in a.m. if patient spikes fever or does not respond to IV antibiotics will consult Infectious Disease. All questions answered patient verbalized understanding. Time Spent With Patient Time: Total time spent is greater than 50% in coordination of care (as documented) at patient's floor/unit and/or counseling patient: Time with patient: 15 - 24 minutes
--- NOTE | 2020-06-19 10:46 | MHC.CM.PN ---
Pt reports she lives at home with her s/o and three children ages 22, 18, and 17. Pt reports she is independent with all care and mobility, has no services and no DME. Pt confirms Zenaida Millan as her PCP and reports she does not have a HCP. Pt reports she will think about completing one and let CM know. pts current DC plan is home with no services pt will self arrange transport
[2020-06-19] MEDS: Ibuprofen 600 MG TABLET PO (11:26)
[2020-06-19] MEDS: polyethylene glycoL 3350 17 GM POWD.PACK PO (15:00)
[2020-06-20] VITALS (7 sets, daily range): BP systolic 110–147; BP diastolic 58–77; PULSE 77–101; RESP 16–82; TEMP 36.4–36.9; O2SAT 97–100; BMI 31.0
[2020-06-20] MEDS: Clindamycin Phosphate/D5W 900 MG/50 ML PIGGYBACK 50 MG IV ×3 (00:27→15:45)
[2020-06-20] MEDS: diphenhydrAMINE HCL 25 MG TABLET PO (00:56)
[2020-06-20] MEDS: Ibuprofen 600 MG TABLET PO ×3 (01:25→21:27)
[2020-06-20] MEDS: Lactated Ringers 1,000 ML 125 ML IVCONT ×2 (04:02→11:02)
[2020-06-20 06:37] LABS: MANUAL DIFF FLAG NO
[2020-06-20 06:58] LABS: Basophils Percent Auto 0.2 % (0-2); Eosinophils Absolute Auto 0.3 X10*3/uL (0.0-0.4); Eosinophils Percent Auto 2.8 % (0-4); Hematocrit 23.7 % (37-47); Hemoglobin 7.6 g/dl (12.0-16.0); Imm Gran Abs Auto 0.04 X10*3/uL (0.00-0.03); Imm Gran Pct Auto 0.4 % (0.0-0.4); Lymphocytes Percent Auto 19.3 % (20-40); Mean Corpuscular HGB Conc 32.1 g/dl (31.0-35.0); Mean Corpuscular Hemoglobin 30.3 pg (27.0-33.0); Mean Corpuscular Volume 94.4 fL (80-98); Mean Platelet Volume 10.1 fL (9.4-12.3); Monocytes Absolute Auto 0.8 X10*3/uL (0.1-1.2); Monocytes Percent Auto 7.5 % (2-11); Neutrophils Absolute Auto 7.1 X10*3/uL (2.0-8.3); Neutrophils Percent Auto 69.8 % (45-73); Platelet Count 339 X10*3/uL (160-400); Red Blood Count 2.51 X10*6/uL (4.20-5.50); Red Cell Distribution Width 13.2 % (11.0-16.0); White Blood Count 10.1 X10*3/uL (4.8-10.8)
--- NOTE | 2020-06-20 11:14 | P.CDIC_ITS ---
CDI Concurrent Query Service Date: 06/20/20 Documentation Clarification: Please clarify if you are treating a proba ble/suspected/likely or confirmed: Severe Sepsis, treated Severe Sepsis, ruled out Provider Response: Anemia PLEASE DO NOT DELETE/MODIFY EXISTING CONTENT Additional information is needed in order to code to the highest accuracy and appropriate Severity of Illness (SOI). Please clarify the information noted below in your progress notes and discharge summary. Risk Factors/Clinical Indicators/Treatments 39 year old female admitted 5 days s/p Total Abdominal Hysterectomy and Bilateral Salpingectomies with fever, aches, chills, urinary frequency. WBC 12.7 LA 1.1 T 98.1, P 100, R 16, BP 115/56,SAT 100% Treated with IV antibiotics Per ED Impression: Pelvis Abscess and Severe Sepsis CDS: Sandra Mauro RN Contact Number: [phone] Please Review the information above and exercise your independent professional judgment in responding to the query. If you concur, pleas document in the PROGRESS NOTES and DISCHARGE SUMMARY. If you do not agree with the query, please document in the query above. THIS QUERY IS PART OF THE PERMANENT MEDICAL RECORD sepsis ruled out
[2020-06-20 11:41] LABS: MANUAL DIFF FLAG NO
--- NOTE | 2020-06-20 11:41 | MHC.CM.PN ---
Patient is S/P total abd hysterectomy and now has an abd abscess. Patient is on IV clindamycin, IV Ceftriaxone and IV solu-medrol. Discharge plan is home no services. Patient has a ride home. CM will continue to follow patient for discharge needs.
[2020-06-20 11:45] LABS: Basophils Percent Auto 0.2 % (0-2); Eosinophils Absolute Auto 0.3 X10*3/uL (0.0-0.4); Eosinophils Percent Auto 2.6 % (0-4); Hematocrit 26.4 % (37-47); Hemoglobin 8.4 g/dl (12.0-16.0); Imm Gran Abs Auto 0.03 X10*3/uL (0.00-0.03); Imm Gran Pct Auto 0.3 % (0.0-0.4); Lymphocytes Absolute Auto 1.6 X10*3/uL (1.2-4.9); Lymphocytes Percent Auto 15.8 % (20-40); Mean Corpuscular HGB Conc 31.8 g/dl (31.0-35.0); Mean Corpuscular Hemoglobin 30.1 pg (27.0-33.0); Mean Corpuscular Volume 94.6 fL (80-98); Mean Platelet Volume 9.7 fL (9.4-12.3); Monocytes Absolute Auto 0.6 X10*3/uL (0.1-1.2); Monocytes Percent Auto 5.9 % (2-11); Neutrophils Absolute Auto 7.6 X10*3/uL (2.0-8.3); Neutrophils Percent Auto 75.2 % (45-73); Platelet Count 357 X10*3/uL (160-400); Red Blood Count 2.79 X10*6/uL (4.20-5.50); Red Cell Distribution Width 13.2 % (11.0-16.0); White Blood Count 10.2 X10*3/uL (4.8-10.8)
--- NOTE | 2020-06-20 12:09 | PM.GYNPNOP ---
PERFORMANCE MANAGER - Subjective Subjective Interval history: Doing well. No complaints. Ambulating, voiding freely, tolerating a regular diet. no nausea or vomiting, had a bowel movement yesterday after laxative. 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 Exam Vitals Vital signs: Temp Pulse Resp BP Pulse Ox 97.5 F 82 82 H 110/63 100 06/20/20 11:09 06/20/20 11:09 06/20/20 11:09 06/20/20 11:09 06/20/20 11:09 Body Mass Index 31.0 Incision Incision: Incision C/D/I Lungs Respiratory Effort: No intercostal retractions and No accessory muscle usage Auscultation: Clear to auscultation Cardiovascular Auscultation: RRR Abdomen Auscultation/Inspection/Palpation: Soft, Non-distended and Bowel sounds diminished or absent PERFORMANCE MANAGER - Prog Note: Results Labs CBC & Chem 7: 06/20/20 11:29 06/18/20 22:09 Labs: Laboratory Results - last 24 hr 06/20/20 06/20/20 05:40 11:29 WBC 10.1 10.2 RBC 2.51 L 2.79 L Hgb 7.6 L 8.4 L Hct 23.7 L 26.4 L MCV 94.4 94.6 MCH 30.3 30.1 MCHC 32.1 31.8 RDW 13.2 13.2 Plt Count 339 357 MPV 10.1 9.7 Immature Gran % (Auto) 0.4 0.3 Neut % (Auto) 69.8 75.2 H Lymph % (Auto) 19.3 L 15.8 L [place] % (Auto) 7.5 5.9 Eos % (Auto) 2.8 2.6 Baso % (Auto) 0.2 0.2 Lymph # (Auto) 2.0 1.6 [place] # (Auto) 0.8 0.6 Eos # (Auto) 0.3 0.3 Baso # (Auto) 0.0 0.0 Abs Immat Gran (auto) 0.04 H 0.03 Absolute Neuts (auto) 7.1 7.6 Absolute Nucleated RBC 0.000 0.000 Nucleated RBC % (auto) 0.0 0.0 PERFORMANCE MANAGER - A/P (1) Pelvic abscess: Problem details: Status post total abdominal hysterectomy and bilateral salpingectomies postop day 6 with pelvic infection/abcess Status: Acute Assessment and Plan: Will keep the patient on IV ceftriaxone and clindamycin till tomorrow morning if still afebrile with discharge on p.o. Cipro 500 p.o. b.i.d. and Flagyl 500 p.o. b.i.d. for 14 days (2) Anemia: Status: Acute Assessment and Plan: Discussed the patient the drop of her H and H since admission, with the finding on CT scan fluid in the pelvis and is 3.8 cm soft tissue density this is suggestive of hemoperitoneum. So the patient was put on NPO and H&H repeated 6 hours after the previous, Repeat H and H 6 hours after am H and H hematocrit went up to 26.4. Since H&H is stable will the put the patient back on regular diet and [facility] the patient iron sulfate 325 mg p.o. t.i.d. and repeat H&H in am Time Spent With Patient Time: Total time spent is greater than 50% in coordination of care (as documented) at patient's floor/unit and/or counseling patient: Time with patient: 15 - 24 minutes
[2020-06-20] MEDS: Ferrous Sulfate 324 MG TABLET.DR PO ×2 (14:18→21:27)
[2020-06-20] MEDS: cefTRIAXone sodium 2 GM in 0.9 % Sodium Chloride 50 ML IV (21:19)
[2020-06-20] MEDS: diphenhydrAMINE HCL 50 MG/ML VIAL 25 MG IVPUSH (21:26)
[2020-06-20] MEDS: Docusate Sodium 100 MG CAPSULE PO (21:27)
[2020-06-21] MEDS: Clindamycin Phosphate/D5W 900 MG/50 ML PIGGYBACK 50 MG IV ×2 (00:28→08:12)
[2020-06-21 03:27] VITALS: BP 116/71; PULSE 82; RESP 18; TEMP 36.6; O2SAT 98
[2020-06-21 06:38] LABS: MANUAL DIFF FLAG NO
[2020-06-21 06:59] LABS: Basophils Percent Auto 0.3 % (0-2); Eosinophils Absolute Auto 0.3 X10*3/uL (0.0-0.4); Eosinophils Percent Auto 3.4 % (0-4); Hematocrit 26.1 % (37-47); Hemoglobin 8.2 g/dl (12.0-16.0); Imm Gran Abs Auto 0.05 X10*3/uL (0.00-0.03); Imm Gran Pct Auto 0.5 % (0.0-0.4); Lymphocytes Absolute Auto 1.9 X10*3/uL (1.2-4.9); Lymphocytes Percent Auto 20.2 % (20-40); Mean Corpuscular HGB Conc 31.4 g/dl (31.0-35.0); Mean Corpuscular Hemoglobin 29.6 pg (27.0-33.0); Mean Corpuscular Volume 94.2 fL (80-98); Mean Platelet Volume 9.9 fL (9.4-12.3); Monocytes Absolute Auto 0.7 X10*3/uL (0.1-1.2); Monocytes Percent Auto 7.2 % (2-11); Neutrophils Absolute Auto 6.6 X10*3/uL (2.0-8.3); Neutrophils Percent Auto 68.4 % (45-73); Platelet Count 394 X10*3/uL (160-400); Red Blood Count 2.77 X10*6/uL (4.20-5.50); Red Cell Distribution Width 13.2 % (11.0-16.0); White Blood Count 9.6 X10*3/uL (4.8-10.8)
[2020-06-21 07:32] VITALS: BP 119/68; PULSE 80; RESP 18; TEMP 36.7; O2SAT 98
--- NOTE | 2020-06-21 07:34 | PM.GYNPNOP ---
FIRE OFFICIAL - Subjective Subjective Interval history: Doing well. No complaints. Ambulating, voiding freely, tolerating a regular diet. no nausea or vomiting, had a bowel movement yesterday after laxative. 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[employer] Physical Exam Vitals Vital signs: Temp Pulse Resp BP Pulse Ox 98.0 F 80 18 119/68 98 06/21/20 07:32 06/21/20 07:32 06/21/20 07:32 06/21/20 07:32 06/21/20 07:32 Body Mass Index 31.0 Abdomen Auscultation/Inspection/Palpation: Normal bowel sounds, Soft, Non-distended, No tenderness and Other (Incision= clean, dry and intact) FIRE OFFICIAL - Prog Note: Results Labs CBC & Chem 7: 06/21/20 05:38 06/18/20 22:09 Labs: Laboratory Results - last 24 hr 06/20/20 06/21/20 11:29 05:38 WBC 10.2 9.6 RBC 2.79 L 2.77 L Hgb 8.4 L 8.2 L Hct 26.4 L 26.1 L MCV 94.6 94.2 MCH 30.1 29.6 MCHC 31.8 31.4 RDW 13.2 13.2 Plt Count 357 394 MPV 9.7 9.9 Immature Gran % (Auto) 0.3 0.5 H Neut % (Auto) 75.2 H 68.4 Lymph % (Auto) 15.8 L 20.2 Mcpherson % (Auto) 5.9 7.2 Eos % (Auto) 2.6 3.4 Baso % (Auto) 0.2 0.3 Lymph # (Auto) 1.6 1.9 [place] # (Auto) 0.6 0.7 Eos # (Auto) 0.3 0.3 Baso # (Auto) 0.0 0.0 Abs Immat Gran (auto) 0.03 0.05 H Absolute Neuts (auto) 7.6 6.6 Absolute Nucleated RBC 0.000 0.000 Nucleated RBC % (auto) 0.0 0.0 FIRE OFFICIAL - A/P (1) Pelvic abscess: Problem details: Status post total abdominal hysterectomy and bilateral salpingectomies postop day 6 with pelvic infection/abcess Status: Acute Assessment and Plan: Will discharge patient home on ciprofloxacin 500 mg p.o. b.i.d., Flagyl 500 mg p.o. b.i.d. for 14 days. Ibuprofen 600 mg p.o. Q 6 p.r.n. pain, oxycodone 5 mg p.o. q.3h p.r.n. pain. Instructions given to patient to call if bleeding occurs fever above 100.4, abdominal pain, incisinal redness or gapping or discharge, nausea or vomiting. Follow up in the office in 1 week for incision check and in 4 weeks for postop visit. (2) Anemia: Status: Acute Assessment and Plan: H& H has been stable, will discharge the patient on iron sulfate 300 mg p.o. t.i.d. for 6 weeks and repeat CBC afterwards and decide when to stop iron therapy. Time Spent With Patient Time: Total time spent is greater than 50% in coordination of care (as documented) at patient's floor/unit and/or counseling patient: Time with patient: 15 - 24 minutes
--- NOTE | 2020-06-21 07:38 | P.DS_ITS ---
DS: Providers Provider Date of admission: 06/19/20 04:28 Primary care physician: Delmy Millan MD DS: Diagnosis Discharge Diagnosis (1) Pelvic abscess: Status: Acute Problem details: Status post total abdominal hysterectomy and bilateral salpingectomies postop day 6 with pelvic infection/abcess patient received IV ceftriaxone and Flagyl for more than 48 hours and will be discharged home on p.o. surface Cipro/Flagyl p.o. b.i.d. for 14 days (2) Anemia: Status: Acute Problem details: H and H has been stable, will discharge patient on iron sulfate 300 mg p.o. t.i.d. for 6 weeks, CBC will be repeated then. DS: Medications Discharge Medications Home Medications: Home Medications Medication Instructions Recorded Confirmed No Known Home Meds 06/08/20 06/13/20 Previous Rx's Medication Instructions Recorded ibuprofen 600 mg PO Q6H PRN #30 tab 06/15/20 oxycodone 5 mg PO Q3H PRN #20 tab 06/15/20 LEAD INSTALLER D/C Summary Hospital Course Hospital Course: Patient was admitted for suspicion of pelvic abscess by CT scan after spiking fever home and in the emergency, ceftriaxone 2 g Q 24 hours was started with clindamycin 900 mg IV q.8, patient has never spiked fever for 48 hours afterw remy, H and H dropped but repeat H and H yesterday went back up and stabilized at 26.1. Patient was asymptomatic stable vital signs ambulating voiding freely having bowel movements. The patient did well with no complications Status at Discharge Functional status at discharge: independent ambulation Overall status at discharge: patient is progressing back to baseline Time Spent with Patient Time attestation: Total time spent providing and/or coordinating discharge services: Quality: VTE Documentation of Mechanical Device: Intermittent pneumatic compression boot Deep Vein Thrombosis/Pulmonary Embolism Present on Admission: No LEAD INSTALLER Physical Exam Vitals Vital signs: Temp Pulse Resp BP Pulse Ox 98.0 F 80 18 119/68 98 06/21/20 07:32 06/21/20 07:32 06/21/20 07:32 06/21/20 07:32 06/21/20 07:32 Body Mass Index 31.0 Abdomen Auscultation/Inspection/Palpation: Normal bowel sounds, Soft, Non-distended, No tenderness and Other (Incision= clean, dry and intact) DRIVEWAY ATTENDANT Discharge Summary Data Data Completed and Pending Completed studies during hospitalization: Procedures Resection of Bilateral Fallopian Tubes, Open Approach (06/13/20) Resection of Bilateral Ovaries, Open Approach (06/13/20) Resection of Uterus, Open Approach (06/13/20) Labs on day of discharge: Labs from last 24 hours 06/21/20 06/20/20 05:38 11:29 WBC 9.6 10.2 RBC 2.77 L 2.79 L Hgb 8.2 L 8.4 L Hct 26.1 L 26.4 L MCV 94.2 94.6 MCH 29.6 30.1 MCHC 31.4 31.8 RDW 13.2 13.2 Plt Count 394 357 MPV 9.9 9.7 Immature Gran % (Auto) 0.5 H 0.3 Neut % (Auto) 68.4 75.2 H Lymph % (Auto) 20.2 15.8 L [place]field % (Auto) 7.2 5.9 Eos % (Auto) 3.4 2.6 Baso % (Auto) 0.3 0.2 Lymph # (Auto) 1.9 1.6 [place] # (Auto) 0.7 0.6 Eos # (Auto) 0.3 0.3 Baso # (Auto) 0.0 0.0 Abs Immat Gran (auto) 0.05 H 0.03 Absolute Neuts (auto) 6.6 7.6 Absolute Nucleated RBC 0.000 0.000 Nucleated RBC % (auto) 0.0 0.0 Preliminary micro results at discharge 06/18/20 22:26 Blood Culture - Preliminary Blood - Venous No growth after 48 hours. 06/18/20 22:09 Blood Culture - Preliminary Blood - Venous No growth after 48 hours. DS: Plan Patient/Caregiver Discharge Instructions Activity: increase activity as tolerated and other (Call if any of the following occur: Abdominal pain, incisional redness or gapping or discharge, nausea or vomiting, temperature above 100.4, vaginal bleeding. Follow up in the office in 1 week for incisional check and 4 weeks for postop visit. Call for any of any of the following occurs temperat) Diet: advance to usual diet Forms: Patient Portal Discharge page
[2020-06-21] MEDS: Ferrous Sulfate 324 MG TABLET.DR PO ×2 (08:12→14:01)
--- NOTE | 2020-06-21 08:38 | MHC.CM.PN ---
Patient will be discharged home no services. Patient will set up transport.
[2020-06-21 11:23] VITALS: BP 119/70; PULSE 87; RESP 18; TEMP 36.4; O2SAT 99
== END 2020-06-21 14:27 | disposition home or self-care (01) | DRG 721 ==
LOC: HO.ED 06-19 00:36 → HO.IMC 06-19 05:01
PROVIDERS: Admitting Provider Obstetrics & Gynecology; Emergency Provider Student in an Organized Health Care Education/Training Program; PCP Internal Medicine; Visit Provider Obstetrics & Gynecology
DX: T81.43XA Infection following a procedure, organ and space surgical site, initial encounter (principal); F32.9 Major depressive disorder, single episode, unspecified; N73.9 Female pelvic inflammatory disease, unspecified; Z20.828 Contact with and (suspected) exposure to other viral communicable diseases; Z79.1 Long term (current) use of non-steroidal anti-inflammatories (NSAID); Z79.899 Other long term (current) drug therapy
CPT/HCPCS: 0241U; 36415; 71045; 74177; 80053; 81001; 83605; 85025; 87040; 96365; 99285; J0696; J1200; Q0163; Q9967

== ENCOUNTER → 2020-06-24 15:15 | Outpatient (BNVA) | payer OTHER, SELFPAY | PROVIDERS: Visit Provider Obstetrics & Gynecology | DX: Z48.89 Encounter for other specified surgical aftercare (principal); Z90.710 Acquired absence of both cervix and uterus | CPT/HCPCS: 99212 ==

== ENCOUNTER → 2020-07-14 13:54 | Outpatient (BNVA) | payer OTHER, SELFPAY | PROVIDERS: Visit Provider Obstetrics & Gynecology | DX: D64.9 Anemia, unspecified (principal); Z90.710 Acquired absence of both cervix and uterus | CPT/HCPCS: 99212 ==

== ENCOUNTER 2020-08-23 14:37 | Outpatient (REF) | payer OTHER, SELFPAY ==
[2020-08-23 16:02] LABS: Hematocrit 38.9 % (37-47); Hemoglobin 12.4 g/dl (12.0-16.0); Mean Corpuscular HGB Conc 31.9 g/dl (31.0-35.0); Mean Corpuscular Volume 91.1 fL (80-98); Mean Platelet Volume 9.8 fL (9.4-12.3); Platelet Count 439 X10*3/uL (160-400); Red Blood Count 4.27 X10*6/uL (4.20-5.50); White Blood Count 10.2 X10*3/uL (4.8-10.8)
== END 2020-08-23 14:38 | disposition home or self-care (01) ==
LOC: HO.LAB 14:37
PROVIDERS: PCP Internal Medicine; Visit Provider Obstetrics & Gynecology
DX: N93.9 Abnormal uterine and vaginal bleeding, unspecified (principal); D64.9 Anemia, unspecified; Z90.710 Acquired absence of both cervix and uterus
CPT/HCPCS: 36415; 85027; 99212

== ENCOUNTER → 2020-09-22 11:47 | Outpatient (BNVA) | payer OTHER, SELFPAY | PROVIDERS: PCP Internal Medicine; Visit Provider Obstetrics & Gynecology ==

== ENCOUNTER 2020-12-26 15:43 | Outpatient (REF) | payer OTHER, SELFPAY ==
--- NOTE | ~2020-12-26 | MM_ITS ---
EXAMINATION: MM SCREENING DIGITAL BREAST TOMOSYNTHESIS, BILATERAL CLINICAL INFORMATION: Screening. Asymptomatic. The lifetime risk of breast cancer based on the Tyrer-Cuzick Model is 13.5%. COMPARISON: Mammography: March 17, 2019 and studies dating back to May 30, 2012 TECHNIQUE: Digital breast tomosynthesis is performed in both the craniocaudal and mediolateral oblique views along with computer-aided detection (CAD). Synthesized 2D images are generated from the tomosynthesis. FINDINGS: There are scattered areas of fibroglandular density (ACR BI-RADS breast composition Category b). There are no significant masses, abnormal calcifications, or other abnormalities. MM/MM tomosynthesis screening BI IMPRESSION: There are no significant changes from prior study. ASSESSMENT: BI-RADS 1: Negative RECOMMENDATION: Routine annual mammography screening. This patient's information was entered into a reminder system with a target due date for their next mammogram.
== END 2020-12-26 15:44 | disposition home or self-care (01) ==
LOC: HO.MAMMO 15:43
PROVIDERS: PCP Internal Medicine; Visit Provider Internal Medicine
DX: Z12.31 Encounter for screening mammogram for malignant neoplasm of breast (principal)
CPT/HCPCS: 77063; 77067

== ENCOUNTER 2021-01-19 13:49 | Outpatient (REF) | payer OTHER, SELFPAY | END 2021-01-19 13:50 | disposition home or self-care (01) | LOC: HO.LNP 13:49 | PROVIDERS: Visit Provider Hospitalist | DX: Z20.822 Contact with and (suspected) exposure to COVID-19 (principal); J01.90 Acute sinusitis, unspecified | CPT/HCPCS: 86769; U0003; U0005 ==

== ENCOUNTER 2021-02-18 00:29 | Emergency (ER) | payer OTHER, SELFPAY ==
[2021-02-18 00:43] VITALS: BP 134/85; PULSE 77; RESP 16; TEMP 36.7; O2SAT 100; BMI 29.2
[2021-02-18 01:11] LABS: IDNOW Serial# 9DD0AD1C; Strep A Nucleic Acid Negative (Negative)
[2021-02-18 01:28] LABS: COVID-19 Test Negative (Negative)
--- NOTE | 2021-02-18 02:28 | ED_ITS ---
HPI - General Adult General Chief complaint: General Medical Stated complaint: sore throat Time Seen by Provider: 02/18/21 02:27 Source: patient Mode of arrival: ambulatory History of Present Illness HPI narrative: 40-year-old female with sore throat for 2 days, without associated fevers, chills, cough, ear pain, difficulty swallowing, shortness of breath. Patient denies any exposure to COVID-19 and denies any history of cigarette smoking. Related Data Previous Rx's Medication Instructions Recorded docusate sodium 100 mg capsule 100 mg PO DAILY PRN 30 Days #30 cap 06/29/20 ibuprofen 800 mg tablet 800 mg PO Q8H PRN 10 Days #30 tab 06/29/20 cyclobenzaprine 5 mg tablet 5 mg PO TID PRN #15 tab 10/11/20 naproxen 500 mg tablet 500 mg PO BID PRN #60 tab 10/11/20 prednisone 20 mg tablet 20 mg PO DAILY 9 Days #18 tab 12/12/20 amoxicillin 875 mg-potassium 1 tab PO BID #20 tab 01/20/21 clavulanate 125 mg tablet prednisone 20 mg tablet 20 mg PO .COMPLEX #18 tab 01/20/21 Allergies Allergy/AdvReac Type Severity Reaction Status Date / Time apple [Apple] Allergy Unknown LIPS SWELL Verified 01/19/21 11:16 Latex, Natural Rubber AdvReac Mild TOPICAL Verified 01/19/21 11:16 IRRITANT Review of Systems Review of Systems: Pertinent positives and negatives as stated in HPI 10 point review of systems is otherwise negative. PMFSH Past Medical History Source: nursing notes reviewed Medical History Compression fracture of T11 vertebra Depression Insomnia Kidney stones Metrorrhagia Migraines Seizures Vitamin D deficiency Surgical History History of bilateral tubal ligation S/P ARVIN (total abdominal hysterectomy) S/P ARVIN (total abdominal hysterectomy) Family History Family History Father Diabetes Hypertension CVD (cardiovascular disease) Stroke Hypercholesterolemia Mother Diabetes Hypertension Hypercholesterolemia Brother Hypertension Maternal Aunt Breast cancer Maternal Grandmother Cervical cancer Paternal Grandmother Breast cancer Social History Social History Household Members: Family Housing: House Do you presently have visiting nurse or other home services: No Unable to assess alcohol history related to: Unknown Alcohol intake: never Advance Directives: No Advance Directives Information Provided: No Patient : No service: No Current occupational status: employed Sexual orientation: Straight/Heterosexual Gender identity: female Physical Exam Vital Signs: Vital Signs: Last Vital Signs Temp 98.0 F 02/18/21 00:43 Pulse 77 02/18/21 00:43 Resp 16 02/18/21 00:43 BP 134/85 02/18/21 00:43 Pulse Ox 100 02/18/21 00:43 Body Mass Index 29.2 VITAL SIGNS: Reviewed. GENERAL: Well developed, well nourished, in no acute distress. HEAD: Normocephalic/atraumatic EYES: PERRLA, EOMI EARS: Ext canals without abnormality, TMs non-bulging and non-erythematous NOSE: Nares patent bilateral OROPHARYNX: no oral lesions noted, posterior pharynx clear and non-erythematous without noted tonsillar enlargement/erythema/exudates NECK: Supple, no adenopathy LUNGS: Normal breath sounds. No adventitious sounds or accessory muscle use. SpO2<100> CARDIOVASCULAR: Regular rate and rhythm without noted murmurs ABDOMEN: Soft, non-tender, non-distended with bowel sounds. SKIN: Inspection of the skin reveals no rashes NEUROLOGIC: Alert and oriented x 4. Course Course Course Narrative: 40-year-old female with history and clinical presentation after review of investigations consistent with a viral pharyngitis as well as laryngitis. No suspicion for retropharyngeal abscess. Patient is stable for discharge Medical Decision Making Lab Data Labs: Lab Results 02/18/21 02/18/21 Range/Units 00:50 00:50 COVID-19 (ISHAN) Negative (Negative) COVID-19 Clin Com See Note S. pyogenes GrpA GABY Negative (Negative) Discharge Plan Discharge Clinical Impression: Laryngitis Patient Disposition: Home, Self-Care Instructions: Laryngitis (ED) Additional Instructions: 1. Resume all home medications as prescribed. 2. Follow-up with your primary care provider in the next 2-3 days for re- evaluation and further outpatient management. 3. Gargle with saline (this is a mixture of table salt and warm water) for 5 minutes, to-3 times a day. 4. [id number] Tylenol/ibuprofen as needed for additional symptom relief. Return to the ER for acute worsening of symptoms. Prescriptions: No Action cyclobenzaprine 5 mg tablet 5 mg PO TID PRN (Reason: muscle spasm) Qty: 15 RF: 0 naproxen 500 mg tablet 500 mg PO BID PRN (Reason: pain) Qty: 60 RF: 0 docusate sodium [Colace] 100 mg capsule 100 mg PO DAILY PRN (Reason: constipation) 30 Days Qty: 30 RF: 0 ibuprofen 800 mg tablet 800 mg PO Q8H PRN (Reason: pain) 10 Days Qty: 30 RF: 0 prednisone 20 mg tablet 20 mg PO DAILY 9 Days Qty: 18 RF: 0 prednisone 20 mg tablet 20 mg PO .COMPLEX Qty: 18 RF: 0 amoxicillin-pot clavulanate [Augmentin] 875-125 mg tablet 1 tab PO BID Qty: 20 RF: 0 Referrals: Po,Delmy Jeffries MD [Primary Care Provider] - 2 days
== END 2021-02-18 02:39 | disposition home or self-care (01) ==
PROVIDERS: Emergency Provider Student in an Organized Health Care Education/Training Program; PCP Internal Medicine
DX: J04.0 Acute laryngitis (principal); Z20.822 Contact with and (suspected) exposure to COVID-19
CPT/HCPCS: 36415; 87635; 87651; 99283

== ENCOUNTER 2021-04-11 08:30 | Outpatient (REF) | payer OTHER, SELFPAY ==
[2021-04-11 09:28] LABS: MANUAL DIFF FLAG NO
[2021-04-11 09:33] LABS: Basophils Percent Auto 0.2 % (0-2); Eosinophils Absolute Auto 0.1 X10*3/uL (0.0-0.4); Eosinophils Percent Auto 1.7 % (0-4); Hematocrit 39.9 % (37-47); Hemoglobin 12.6 g/dl (12.0-16.0); Imm Gran Abs Auto 0.02 X10*3/uL (0.00-0.03); Imm Gran Pct Auto 0.2 % (0.0-0.4); Lymphocytes Absolute Auto 2.5 X10*3/uL (1.2-4.9); Lymphocytes Percent Auto 30.2 % (20-40); Mean Corpuscular HGB Conc 31.6 g/dl (31.0-35.0); Mean Corpuscular Hemoglobin 29.4 pg (27.0-33.0); Mean Platelet Volume 9.9 fL (9.4-12.3); Monocytes Absolute Auto 0.5 X10*3/uL (0.1-1.2); Monocytes Percent Auto 5.7 % (2-11); Neutrophils Absolute Auto 5.1 X10*3/uL (2.0-8.3); Platelet Count 364 X10*3/uL (160-400); Red Blood Count 4.29 X10*6/uL (4.20-5.50); Red Cell Distribution Width 13.2 % (11.0-16.0); Retic HGB Equivalent 32.1 pg (30.0-35.0); Reticulocyte Percent 1.1 % (0.5-1.8); Reticulocytes Absolute 0.047 X10*6/uL (0.026-0.095); White Blood Count 8.2 X10*3/uL (4.8-10.8)
[2021-04-11 10:03] LABS: Alanine Aminotransferase 15 U/L (0-31); Alkaline Phosphatase 66 U/L (39-117); Anion Gap 10 (12-20); Aspartate Amino Transferase 15 U/L (5-31); Bilirubin Total 0.7 mg/dL (0.0-1.0); Blood Urea Nitrogen 8 mg/dL (9-16); Carbon Dioxide 26 mmol/L (22-29); Chloride 108 mmol/L (96-108); Cholesterol 192 mg/dL; Estimated Glomerular Filt Rate > 60; Glucose Random 92 mg/dL (60-115); HDL Cholesterol 42 mg/dL; Iron 84 mcg/dL (30-160); LDL Cholesterol Calculated 125 mg/dl; Percent Iron Saturation 26 % (15-50); Potassium 4.6 mmol/L (3.3-5.1); Sodium 139 mmol/L (135-145); Total Iron Binding Capacity 326 mcg/dL (228-428); Total Protein 6.9 g/dL (6.5-8.0); Triglycerides 128 mg/dL; Unsaturated Iron Binding 242 ug/dL
[2021-04-11 10:11] LABS: Ferritin 83 ng/mL (10-250); Free T4 (Free Thyroxine) 0.85 ng/dL (0.71-1.85); Thyroid Stimulating Hormone 1.37 uIU/mL (0.32-4.0)
[2021-04-11 10:25] LABS: Folate 16.9 ng/mL (> or = 4.0); Vitamin B12 605 pg/mL (200-900)
== END 2021-04-11 08:31 | disposition home or self-care (01) ==
LOC: HO.LAB 08:30
PROVIDERS: PCP Internal Medicine; Visit Provider Internal Medicine
DX: R56.9 Unspecified convulsions (principal); E78.00 Pure hypercholesterolemia, unspecified
CPT/HCPCS: 36415; 80053; 80061; 82306; 82607; 82728; 82746; 83540; 84439; 84443; 85025; 85045

== ENCOUNTER 2021-04-13 16:19 | Emergency (ER) | payer OTHER, SELFPAY ==
[2021-04-13 16:33] VITALS: BP 124/78; PULSE 100; RESP 16; TEMP 36.9; O2SAT 98; BMI 29.9
[2021-04-13 20:40] VITALS: BP 112/66; PULSE 91; RESP 18; TEMP 38.1; O2SAT 99
--- NOTE | 2021-04-13 21:08 | ED.URI ---
HPI - URI/Sore Throat General Chief Complaint: Upper Respiratory Symptoms Stated Complaint: body weakness, headache Time Seen by Provider: 04/13/21 21:00 Source: patient Mode of arrival: ambulatory Limitations: no limitations History of Present Illness HPI Narrative: Patient presents with approximately 24 hours worth of URI symptoms. Cough which has since resolved. Positive runny nose positive scratchy throat. No shortness of breath. No nausea vomiting diarrhea or constipation. Positive mild headache. She took DayQuil early in the morning but so far nothing else. She states she had a fever yesterday. She feels like she is developing a fever now. She is not vaccinated against COVID. She does not know of any COVID contacts. She comes in for COVID testing. Related Data Previous Rx's Medication Instructions Recorded fexofenadine 180 mg tablet 180 mg PO DAILY #30 tab 03/07/21 (Ruth Allergy) Allergies Allergy/AdvReac Type Severity Reaction Status Date / Time apple [Apple] Allergy Unknown LIPS SWELL Verified 03/07/21 08:47 Latex, Natural Rubber AdvReac Mild TOPICAL Verified 03/07/21 08:47 IRRITANT Review of Systems Constitutional: Constitutional: Reports fatigue and Reports fever(s) ENT: Comments: Positive rhinorrhea and mild sore throat Cardiovascular: Comments: No chest pain Respiratory: Comments: Cough without phlegm or shortness of breath Gastrointestinal: Comments: No nausea vomiting diarrhea Neurologic: Comments: Headache. She has remote history of migraines and seizures for which he does not take medication as she has not had a seizure or migraine in over 6 years. This headache feels with vague in different from her prior history of migraines. No weakness numbness or paresthesias Endocrine: Endocrine: Reports fatigue PMFSH Past Medical History Medical History Compression fracture of T11 vertebra Depression Insomnia Kidney stones Metrorrhagia Migraines Seizures Vitamin D deficiency Surgical History History of bilateral tubal ligation S/P ARVIN (total abdominal hysterectomy) S/P ARVIN (total abdominal hysterectomy) Family History Family History Father Diabetes Hypertension CVD (cardiovascular disease) Stroke Hypercholesterolemia Mother Diabetes Hypertension Hypercholesterolemia Brother Hypertension Maternal Aunt Breast cancer Maternal Grandmother Cervical cancer Paternal Grandmother Breast cancer Social History Social History Household Members: Family Housing: Apartment Do you presently have visiting nurse or other home services: No Unable to assess alcohol history related to: Unknown Alcohol intake: never Patient Tobacco Use Status: Never used Tobacco e-Cigarette/Vaping Use: Never Used Second Hand Smoke Exposure: No Advance Directives: No Advance Directives Information Provided: No service: No Current occupational status: employed Sexual orientation: Straight/Heterosexual Gender identity: Female Physical Exam Vital Signs: Vital Signs: Last Vital Signs Temp 100.6 F H 04/13/21 20:40 Pulse 91 04/13/21 20:40 Resp 18 04/13/21 20:40 BP 112/66 04/13/21 20:40 Pulse Ox 99 04/13/21 20:40 Body Mass Index 29.9 Const: General: cooperative, comfortable and no acute distress Orientation/consciousness: patient oriented x3 Limitations: no limitations HENMT: Other: No pharyngeal erythema. No anterior lymphadenopathy. No purulent rhinorrhea Head: Yes normal to inspection Eyes: Other: No conjunctival injection Neck: Other: No meningismus Resp: Other: Clear and equal bilaterally without wheezes rales or rhonchi. Good air entry Cardio: Other: Regular rate and rhythm without murmurs rubs or gallops GI: Other: Soft nontender nondistended Skin: Other: Warm pink and dry without obvious rashes Neuro: Other: No aphasia General: patient oriented x3 Course Course Course Narrative: Viral URI without evidence of bacterial infection or pneumonia. COVID-19 infection Rapid COVID swab ordered 10:31 p.m.. COVID test is positive. Patient informed of the results and given precautions and isolation precautions. MDM - URI/Sore Throat Lab Data Labs: Lab Results 04/13/21 Range/Units 21:16 COVID-19 (ISHAN) Positive A (Negative) COVID-19 Clin Com See Note Discharge Plan Discharge Clinical Impression: COVID-19 Patient Disposition: Home, Self-Care Instructions: COVID-19 (Coronavirus Disease 2019) (ED) Prescriptions: No Action fexofenadine [Ruth Allergy] 180 mg tablet 180 mg PO DAILY Qty: 30 RF: 2
[2021-04-13 21:29] LABS: COVID-19 Test Positive (Negative)
== END 2021-04-13 22:45 | disposition home or self-care (01) ==
PROVIDERS: Emergency Provider Emergency Medicine; PCP Internal Medicine
DX: U07.1 COVID-19 (principal)
CPT/HCPCS: 36415; 87635; 99283

== ENCOUNTER 2021-04-26 16:57 | Outpatient (REF) | payer OTHER, SELFPAY | END 2021-04-26 16:58 | disposition home or self-care (01) | LOC: HO.LNP 16:57 | PROVIDERS: Visit Provider Internal Medicine | DX: Z20.822 Contact with and (suspected) exposure to COVID-19 (principal); J06.9 Acute upper respiratory infection, unspecified | CPT/HCPCS: U0003; U0005 ==

== ENCOUNTER 2021-07-06 16:41 | Outpatient (REF) | payer OTHER, SELFPAY | END 2021-07-06 16:42 | disposition home or self-care (01) | LOC: HO.LNP 16:41 | PROVIDERS: Visit Provider Physician Assistant Medical | DX: J02.9 Acute pharyngitis, unspecified (principal) | CPT/HCPCS: 87071; 87147 ==

== ENCOUNTER 2021-09-06 14:20 | Outpatient (REF) | payer OTHER, SELFPAY ==
--- NOTE | ~2021-09-06 | MM_ITS ---
EXAMINATION: MM DIAGNOSTIC DIGITAL BREAST TOMOSYNTHESIS, BILATERAL US DIAGNOSTIC ULTRASOUND BREAST, BILATERAL CLINICAL INFORMATION: 40-year-old notes a small superficial palpable nodularity right axilla. Clinical exam notes palpable fullness right periareolar 4:00 and left periareolar 9:00. The lifetime risk of breast cancer based on the Tyrer-Cuzick Model is 12%. COMPARISON: Mammography: 12/26/2020, 03/17/2019, 02/17/2018 TECHNIQUE: Digital breast tomosynthesis is performed in both the craniocaudal and mediolateral oblique views along with computer-aided detection (CAD). Synthesized 2D images are generated from the tomosynthesis. Ultrasound is performed on each side targeted to the areas of clinical concern. Grayscale imaging and color Doppler are performed without and with harmonics. Patient is able to point to the area of patient concern at time of imaging. FINDINGS: Mammography: There are scattered areas of fibroglandular density (ACR BI-RADS breast composition Category b). There are no significant masses, abnormal calcifications, or other abnormalities. Parenchymal pattern is similar to prior studies. There is no developing density or architectural abnormality. There is no skin thickening or coarsening of the Alexi's ligaments. No axillary adenopathy. No significant changes from prior studies. Ultrasound: Ultrasound bilateral anterior breasts targeted to the areas of concern at clinical exam notes no cystic or solid mass or architectural abnormality. There is no focal duct ectasia. No skin thickening or edema tracking in soft tissue planes. Ultrasound targeted to the patient's palpable concern right axilla confirms a small intradermal lesion measuring 3 mm in thickness and 6 mm x 6 mm across. There is mild surrounding hyperemia on color Doppler. No subdermal extension of the intradermal mass. There is no axillary adenopathy. No edema tracking in soft tissue planes. Management: Results are discussed with the patient at time of visit. The palpable concern right axilla likely represents a sebaceous cyst or other epidermal inclusion cyst. Patient may consider warm compresses and clinical follow-up. If finding is increasing, surgical consult may be considered for excision. MM/MM tomosynthesis diagnostic BI IMPRESSION: 1. No mammographic evidence of malignancy. No mammographic or ultrasound correlate for areas of palpable concern at time of clinical exam. 2. Small intradermal lesion right axilla 3 x 6 x 6 mm with mild surrounding hyperemia, likely mildly inflamed sebaceous cyst or other epidermal inclusion cyst. ASSESSMENT: BI-RADS 2: Benign RECOMMENDATION: 1. Patient should be managed based on the clinical impression. If clinically indicated, further evaluation may be considered with surgical consult. Decision to proceed with biopsy should be based on clinical grounds and degree of clinical concern. 2. Otherwise, routine annual screening mammography. This patient's information was entered into a reminder system with a target due date for their next mammogram.
== END 2021-09-06 14:21 | disposition home or self-care (01) ==
LOC: HO.MAMMO 14:20
PROVIDERS: PCP Nurse Practitioner Family; Visit Provider Nurse Practitioner Family
DX: N63.31 Unspecified lump in axillary tail of the right breast (principal); N63.25 Unspecified lump in the left breast, overlapping quadrants; N64.4 Mastodynia
CPT/HCPCS: 76642; 77062; 77066

== ENCOUNTER 2022-07-02 11:07 | Outpatient (REF) | payer OTHER, SELFPAY ==
[2022-07-02 11:21] LABS: MANUAL DIFF FLAG NO
[2022-07-02 11:37] LABS: Basophils Percent Auto 0.4 % (0-2); Eosinophils Absolute Auto 0.1 X10*3/uL (0.0-0.4); Eosinophils Percent Auto 1.4 % (0-4); Hematocrit 40.8 % (37.0-47.0); Hemoglobin 12.7 g/dl (12.0-16.0); Imm Gran Abs Auto 0.02 X10*3/uL (0.00-0.03); Imm Gran Pct Auto 0.3 % (0.0-0.4); Lymphocytes Percent Auto 26.1 % (20-40); Mean Corpuscular HGB Conc 31.1 g/dl (31.0-35.0); Mean Corpuscular Hemoglobin 28.7 pg (27.0-33.0); Mean Corpuscular Volume 92.3 fL (80.0-98.0); Mean Platelet Volume 9.6 fL (9.4-12.3); Monocytes Absolute Auto 0.5 X10*3/uL (0.1-1.2); Monocytes Percent Auto 5.9 % (2-11); Neutrophils Absolute Auto 5.1 x10*3/uL (2.0-8.3); Neutrophils Percent Auto 65.9 % (45-73); Platelet Count 365 X10*3/uL (160-400); Red Blood Count 4.42 X10*6/uL (4.20-5.50); White Blood Count 7.7 X10*3/uL (4.8-10.8)
[2022-07-02 12:02] LABS: Estimated Average Glucose 114 mg/dL; Hemoglobin A1c % 5.6 %
[2022-07-02 12:59] LABS: Folate 12.6 ng/mL (> or = 4.0); Vitamin B12 500 pg/mL (200-900)
[2022-07-02 13:08] LABS: Alanine Aminotransferase 18 U/L (0-31); Albumin Level 4.2 g/dL (3.5-5.0); Alkaline Phosphatase 73 U/L (39-117); Anion Gap 14 (12-20); Aspartate Amino Transferase 15 U/L (5-31); Bilirubin Total 0.5 mg/dL (0.0-1.0); Blood Urea Nitrogen 11 mg/dL (9-16); C Reactive Protein 1.41 mg/dL (< or = 0.50); Calcium 9.1 mg/dL (8.4-10.2); Carbon Dioxide 24 mmol/L (22-29); Chloride 102 mmol/L (96-108); Cholesterol 224 mg/dL; Estimated Glomerular Filt Rate > 60; Glucose Random 92 mg/dL (60-115); HDL Cholesterol 48 mg/dL; LDL Cholesterol Calculated 150 mg/dl; Potassium 4.4 mmol/L (3.3-5.1); Sodium 136 mmol/L (135-145); Total Protein 7.4 g/dL (6.5-8.0); Triglycerides 131 mg/dL
[2022-07-02 13:16] LABS: Free T4 (Free Thyroxine) 0.84 ng/dL (0.71-1.85); Thyroid Stimulating Hormone 1.32 uIU/mL (0.32-4.0); Vitamin D 25-OH Total 18.7 ng/mL (>30)
[2022-07-02 13:20] LABS: Erythrocyte Sedimentation Rate 18 MM/HR (0-20)
== END 2022-07-02 11:08 | disposition home or self-care (01) ==
LOC: HO.LAB 11:07
PROVIDERS: Visit Provider Internal Medicine
DX: E78.00 Pure hypercholesterolemia, unspecified (principal); L65.9 Nonscarring hair loss, unspecified
CPT/HCPCS: 36415; 80053; 80061; 82306; 82607; 82746; 83036; 84439; 84443; 85025; 85652; 86140

== ENCOUNTER 2022-08-15 14:11 | Outpatient (REF) | payer OTHER, SELFPAY ==
--- NOTE | ~2022-08-15 | US_ITS ---
EXAMINATION: US EXTRACRANIAL CAROTID DUPLEX, BILATERAL CLINICAL INFORMATION: Transient visual loss in the right eye COMPARISON: None TECHNIQUE: Real-time ultrasound and Doppler techniques (integrating B-mode 2-D vascular images, Doppler spectral analysis and color-flow Doppler imaging) were utilized to interrogate the extracranial carotid arteries, the vertebral arteries and proximal subclavian arteries bilaterally. The degree of stenosis is determined by criteria similar to NASCET. FINDINGS: Right Side: 1. There is no significant atherosclerotic plaque seen in the bifurcation/proximal ICA region. 2. The common carotid artery PSV proximally is 114 cm/s and distally 111 cm/s. 3. The proximal internal carotid artery velocities are 122 cm/s systolic and 42 cm/s diastolic. 4. The proximal external carotid artery PSV is 174 cm/s. 5. The vertebral artery shows antegrade flow. 6. The subclavian artery waveforms are normal. Left Side: 1. There is no significant atherosclerotic plaque seen in the bifurcation/proximal ICA region. 2. The common carotid artery PSV proximally is 132 cm/s and distally 98 cm/s. 3. The proximal internal carotid artery velocities are 132 cm/s systolic and 50 cm/s diastolic. 4. The proximal external carotid artery PSV is 137 cm/s. 5. The vertebral artery shows antegrade flow. 6. The subclavian artery waveforms are normal. US/US carotid duplex BI IMPRESSION: 1. RIGHT: Normal right internal carotid artery without atherosclerotic plaque or hemodynamically significant stenosis. 2. LEFT: Normal left internal carotid artery without atherosclerotic plaque or hemodynamically significant stenosis. 3. No significant atherosclerotic disease is visualized in the carotid artery systems, however velocities are elevated suggesting hypertension.
== END 2022-08-15 14:12 | disposition home or self-care (01) ==
LOC: HO.US 14:11
PROVIDERS: PCP Nurse Practitioner Family; Visit Provider Internal Medicine
DX: H53.121 Transient visual loss, right eye (principal)
CPT/HCPCS: 93880

== ENCOUNTER 2022-10-26 08:49 | Outpatient (REF) | payer OTHER, SELFPAY ==
--- NOTE | ~2022-10-26 | MM_ITS ---
EXAMINATION: MM SCREENING DIGITAL BREAST TOMOSYNTHESIS, BILATERAL CLINICAL INFORMATION: Screening. Asymptomatic. The lifetime risk of breast cancer based on the Tyrer-Cuzick Model is 14%. COMPARISON: Mammography: 09/06/2021, 12/26/2020, 03/17/2019; bilateral breast ultrasound 09/06/2021. TECHNIQUE: Digital breast tomosynthesis is performed in both the craniocaudal and mediolateral oblique views along with computer-aided detection (CAD). Synthesized 2D images are generated from the tomosynthesis. FINDINGS: There are scattered areas of fibroglandular density (ACR BI-RADS breast composition Category b). There are no significant masses, abnormal calcifications, or other abnormalities. Parenchymal pattern is similar to prior studies. There is no developing density or architectural abnormality. The axilla and skin contours are unremarkable. No significant changes. MM/MM tomosynthesis screening BI IMPRESSION: No mammographic evidence of malignancy. ASSESSMENT: BI-RADS 1: Negative RECOMMENDATION: Routine annual mammography screening. This patient's information was entered into a reminder system with a target due date for their next mammogram.
== END 2022-10-26 08:50 | disposition home or self-care (01) ==
LOC: HO.MAMMO 08:49
PROVIDERS: Visit Provider Internal Medicine
DX: Z12.31 Encounter for screening mammogram for malignant neoplasm of breast (principal)
CPT/HCPCS: 77063; 77067

== ENCOUNTER 2022-11-07 13:08 | Emergency (ER) | payer OTHER, SELFPAY ==
--- NOTE | ~2022-11-07 | CT_ITS ---
EXAMINATION: CT ABDOMEN AND PELVIS WITHOUT CONTRAST CLINICAL INFORMATION: Abdominal pain. Diarrhea. COMPARISON: Previous CT of the abdomen and pelvis most recent June 2020 TECHNIQUE: Multidetector volumetric imaging was performed from the superior aspect of the liver through the pubic symphysis. Sagittal and coronal reformatted images were obtained on the technologist's workstation. This CT examination was performed using dose optimization techniques as appropriate, variously including the following: *Automated exposure control *Adjustment of mA and/or kV according to patient size (this includes techniques or standardized protocols for targeted exams where dose is matched to indication/reason for exam; i.e. extremities or head) *Use of iterative reconstruction technique DLP: 736 mGy-cm FINDINGS: LUNG BASES: The visualized lung bases are unremarkable. LIVER, GALLBLADDER, AND BILIARY TREE: The liver is normal in size, shape, and attenuation. No focal hepatic lesion or biliary ductal dilatation is present. The gallbladder is unremarkable with no evidence of radiopaque gallstones, gallbladder wall thickening, or obvious pericholecystic inflammatory changes. PANCREAS: Unremarkable. SPLEEN: Unremarkable. ADRENAL GLANDS: Unremarkable. KIDNEYS AND URETERS: The kidneys are normal in size, shape, and attenuation. No hydronephrosis, hydroureter, or calculi seen. No perinephric stranding. BLADDER: Not optimally distended. GASTROINTESTINAL TRACT: There is mild wall thickening of the proximal colon/mild mild colitis. There are small adjacent mesenteric lymph nodes and stranding of the adjacent fat.. Small and large bowel is otherwise unremarkable. The appendix is normal. The stomach is normal. ABDOMINAL WALL: No significant hernia is appreciated. Postsurgical changes to the lower abdominal wall. LYMPH NODES: Normal. VASCULAR: Unremarkable. PELVIC VISCERA: The uterus has been removed. No pelvic mass. There is a small 1 cm cyst in the right pelvis. This may represent a right adnexal cyst. The ovaries are otherwise normal. OSSEOUS STRUCTURES: Unremarkable. CT/CT abdomen pelvis wo IV con IMPRESSION: Mild colitis of the proximal colon. Fleischner guidelines were followed.
[2022-11-07 13:21] VITALS: BP 131/93; PULSE 85; RESP 18; TEMP 36.8; O2SAT 100; BMI 32.5
--- NOTE | 2022-11-07 13:21 | ED.ABDPAIN ---
HPI - Abdominal Pain General Stated Complaint: Abd pain Related Data Home Medications Medication Instructions Recorded Confirmed cholecalciferol (vitamin D3) 25 25 mcg PO DAILY 12/18/21 10/24/22 mcg (1,000 unit) capsule multivitamin 1 tab PO DAILY 12/18/21 10/24/22 vitamin B complex 1 tab PO DAILY 12/18/21 10/24/22 sumatriptan succinate 50 mg tablet 50 mg PO Q2-4H PRN 10/24/22 10/24/22 (Imitrex) Allergies Allergy/AdvReac Type Severity Reaction Status Date / Time apple [Apple] Allergy Unknown LIPS SWELL Verified 10/24/22 10:59 Latex, Natural Rubber AdvReac Mild TOPICAL Verified 10/24/22 10:59 IRRITANT PMFSH Past Medical History Medical History Compression fracture of T11 vertebra Depression Insomnia Kidney stones Lumbar radicular pain Metrorrhagia Migraines Pelvic abscess Recurrent respiratory infection Seizures Vitamin D deficiency Surgical History History of bilateral tubal ligation S/P ARVIN (total abdominal hysterectomy) Family History Family History Father Diabetes Hypertension CVD (cardiovascular disease) Stroke Hypercholesterolemia Mother Diabetes Hypertension Hypercholesterolemia Brother Hypertension Maternal Aunt Breast cancer Maternal Grandmother Cervical cancer Paternal Grandmother Breast cancer Paternal Uncle CVD (cardiovascular disease) Social History Social History Household Members: Family Housing: Apartment Do you presently have visiting nurse or other home services: No Alcohol intake: current Patient Tobacco Use Status: Never used Tobacco e-Cigarette/Vaping Use: Never Used Second Hand Smoke Exposure: No service: No Current occupational status: employed Sexual orientation: Straight/Heterosexual Gender identity: Female Cognitive needs: No Hearing needs: No Vision needs: No Course Course Course Narrative: RME - 42 yo female with history of seizures, GERD, constipation, HLD, PVD who presents to the ER for evaluation of worsening midline abdominal pain for the last 1.5 weeks. Worse with eating and drinking. Has had diarrhea as well, 5-6 times per day, thought it was a GI bug but hasn't gone away. Feels a twisting sensation. Reports the pain is 8/10. Plan: labs, UA, CT scan for further evaluation Discharge Plan Discharge Prescriptions: No Action multivitamin Tablet 1 tab PO DAILY vitamin B complex Tablet 1 tab PO DAILY cholecalciferol (vitamin D3) 25 mcg (1,000 unit) capsule 25 mcg PO DAILY sumatriptan succinate [Imitrex] 50 mg tablet 50 mg PO Q2-4H PRN Rx Instructions: do not exceed 4 doses per 24 hrs
[2022-11-07 13:44] LABS: MANUAL DIFF FLAG NO
[2022-11-07 13:46] LABS: Basophils Percent Auto 0.3 % (0-2); Eosinophils Absolute Auto 0.2 X10*3/uL (0.0-0.4); Eosinophils Percent Auto 2.1 % (0-4); Hematocrit 39.6 % (37.0-47.0); Hemoglobin 12.7 g/dl (12.0-16.0); Imm Gran Abs Auto 0.02 X10*3/uL (0.00-0.03); Imm Gran Pct Auto 0.2 % (0.0-0.4); Lymphocytes Absolute Auto 1.8 X10*3/uL (1.2-4.9); Lymphocytes Percent Auto 20.6 % (20-40); Mean Corpuscular HGB Conc 32.1 g/dl (31.0-35.0); Mean Corpuscular Hemoglobin 29.2 pg (27.0-33.0); Mean Platelet Volume 9.3 fL (9.4-12.3); Monocytes Absolute Auto 0.5 X10*3/uL (0.1-1.2); Monocytes Percent Auto 6.2 % (2-11); Neutrophils Absolute Auto 6.2 x10*3/uL (2.0-8.3); Neutrophils Percent Auto 70.6 % (45-73); Platelet Count 381 X10*3/uL (160-400); Red Blood Count 4.35 X10*6/uL (4.20-5.50); Red Cell Distribution Width 13.1 % (11.0-16.0); White Blood Count 8.7 X10*3/uL (4.8-10.8)
[2022-11-07 14:02] LABS: Alanine Aminotransferase 202 U/L (0-31); Albumin Level 3.9 g/dL (3.5-5.0); Alkaline Phosphatase 71 U/L (39-117); Anion Gap 14 (12-20); Aspartate Amino Transferase 88 U/L (5-31); Bilirubin Direct 0.2 mg/dL (0.0-0.5); Bilirubin Total 0.7 mg/dL (0.0-1.0); Blood Urea Nitrogen 6 mg/dL (9-16); Calcium 8.8 mg/dL (8.4-10.2); Carbon Dioxide 24 mmol/L (22-29); Chloride 107 mmol/L (96-108); Estimated Glomerular Filt Rate > 60; Glucose Random 92 mg/dL (60-115); Lipase 17 U/L (8-78); Magnesium 2.1 mg/dL (1.6-2.6); Potassium 4.5 mmol/L (3.3-5.1); Sodium 140 mmol/L (135-145)
[2022-11-07 14:07] LABS: Appearance Urine Clear; Color Urine Yellow; Glucose Urine UA Negative (Negative); Leukocyte Esterase Urine Negative (Negative); Nitrite Urine Negative (Negative); PH 5.5 (5.0-9.0); Specific Gravity - Urine 1.025 (1.005-1.025); UMIC TRIGGER UACC YES; Urine Blood Trace (Negative); Urine Ketones Negative (Negative); Urine Protein Trace mg/dL (Neg-Trace)
--- NOTE | 2022-11-07 14:15 | ED.ABDPAIN ---
HPI - Abdominal Pain General Chief Complaint: Abdominal Pain Stated Complaint: Abd pain Time Seen by Provider: 11/07/22 14:02 Source: patient History of Present Illness HPI narrative: Patient states she has been having diarrhea which she describes as loose infrequent stools for the past 1 and half weeks. It is not watery. It is brown. No melena. She states her but occasional flecks of blood in the stool. No prior history of similar issues. Intermittent nausea. She has been having abdominal pain which she describes as a crampy twist the sensation. Prior abdominal surgeries significant for hysterectomy secondary to fibroid. No sick contacts at home. Other symptom especially when the cramping is severe. No dysuria hematuria hesitancy or frequency. No vaginal discharge Related Data Home Medications Medication Instructions Recorded Confirmed cholecalciferol (vitamin D3) 25 25 mcg PO DAILY 12/18/21 10/24/22 mcg (1,000 unit) capsule multivitamin 1 tab PO DAILY 12/18/21 10/24/22 vitamin B complex 1 tab PO DAILY 12/18/21 10/24/22 sumatriptan succinate 50 mg tablet 50 mg PO Q2-4H PRN 10/24/22 10/24/22 (Imitrex) Previous Rx's Medication Instructions Recorded amoxicillin 875 mg-potassium 1 tab PO BID #20 tabs 11/07/22 clavulanate 125 mg tablet ondansetron 4 mg disintegrating 4 mg PO Q8H PRN nausea and 11/07/22 tablet vomiting #14 tabs tolodjbyi-jguysizuo-ycbtpyvc-scop 1 tab PO BID PRN indigestion #14 11/07/22 16.2 mg-0.1037 mg-0.0194 mg tablet tabs () Allergies Allergy/AdvReac Type Severity Reaction Status Date / Time apple [Apple] Allergy Unknown LIPS SWELL Verified 10/24/22 10:59 Latex, Natural Rubber AdvReac Mild TOPICAL Verified 10/24/22 10:59 IRRITANT Review of Systems Comments: General malaise Comments: No chest pain Comments: No cough or dyspnea Gastrointestinal: Reports as per HPI Genitourinary: Reports as per HPI Comments: No rash Comments: No focal weakness PMFSH Past Medical History Medical History Compression fracture of T11 vertebra Depression Insomnia Kidney stones Lumbar radicular pain Metrorrhagia Migraines Pelvic abscess Recurrent respiratory infection Seizures Vitamin D deficiency Surgical History History of bilateral tubal ligation S/P ARVIN (total abdominal hysterectomy) Family History Family History Father Diabetes Hypertension CVD (cardiovascular disease) Stroke Hypercholesterolemia Mother Diabetes Hypertension Hypercholesterolemia Brother Hypertension Maternal Aunt Breast cancer Maternal Grandmother Cervical cancer Paternal Grandmother Breast cancer Paternal Uncle CVD (cardiovascular disease) Social History Social History Household Members: Family Housing: Apartment Do you presently have visiting nurse or other home services: No Alcohol intake: current Patient Tobacco Use Status: Never used Tobacco e-Cigarette/Vaping Use: Never Used Second Hand Smoke Exposure: No Advance Directives: No service: No Current occupational status: employed Sexual orientation: Straight/Heterosexual Gender identity: Female Cognitive needs: No Hearing needs: No Vision needs: No Physical Exam ED Vital Signs: Vital Signs - 24 hr 11/07/22 13:21 11/07/22 14:30 Temperature 98.2 F Pulse Rate 85 71 Respiratory Rate 18 14 Blood Pressure 131/93 H 115/60 Pulse Oximetry 100 98 Oxygen Delivery Method Room Air BMI result Body Mass Index 32.5 Const Other: Awake and alert. No acute distress. Resp Other: Clear and equal bilaterally without wheezes rales or rhonchi Cardio Other: Regular rate and rhythm without murmurs rubs or gallops GI Other: Abdomen is soft, distended. No focal areas of tenderness however. Bowel sounds hyperactive. Skin Other: Warm pink and dry without rash Neuro Other: Of no focal neuro deficits Medical Decision Making Medical Decision Making MDM Narrative: A patient with abdominal pain and frequent loose bowel movements. Differential diagnosis is broad. Infectious etiology is possible. Given symptoms last thing over 1 1-1/2 weeks, it is less likely to be a viral syndrome such as norovirus. It could be bacterial such as Campylobacter Salmonella or Shigella. colitis is possible Inflammatory etiologies such as Crohn's or ulcerative colitis are also possible. 14:20. CBC is normal. Chemistries are normal including creatinine of 0.74 with BUN of 6 without evidence of significant dehydration. Transaminases are elevated at 88 and 202. Lipase is normal at 17 Given elevated transaminases, hepatitis as possible. Will add on hepatitis panel 16:46. CT scan demonstrates colitis. Will start on Augmentin. Lab Data 11/07/22 13:41 11/07/22 13:41 Labs: Lab Results 11/07/22 11/07/22 11/07/22 Range/Units 13:41 13:41 13:46 WBC 8.7 (4.8-10.8) X10*3/uL RBC 4.35 (4.20-5.50) X10*6/uL Hgb 12.7 (12.0-16.0) g/dl Hct 39.6 (37.0-47.0) % MCV 91.0 (80.0-98.0) fL MCH 29.2 (27.0-33.0) pg MCHC 32.1 (31.0-35.0) g/dl RDW 13.1 (11.0-16.0) % Plt Count 381 (160-400) X10*3/uL MPV 9.3 L (9.4-12.3) fL Immature Gran % (Auto) 0.2 (0.0-0.4) % Neut % (Auto) 70.6 (45-73) % Lymph % (Auto) 20.6 (20-40) % [place] % (Auto) 6.2 (2-11) % Eos % (Auto) 2.1 (0-4) % Baso % (Auto) 0.3 (0-2) % Lymph # (Auto) 1.8 (1.2-4.9) X10*3/uL [place] # (Auto) 0.5 (0.1-1.2) X10*3/uL Eos # (Auto) 0.2 (0.0-0.4) X10*3/uL Baso # (Auto) 0.0 (0.0-0.2) X10*3/uL Abs Immat Gran (auto) 0.02 (0.00-0.03) X10*3/uL Absolute Neuts (auto) 6.2 (2.0-8.3) x10*3/uL Absolute Nucleated RBC 0.000 (0.0-0.012) X10*3/uL Nucleated RBC % (auto) 0.0 (0.0-0.2) /100WBC Sodium 140 (135-145) mmol/L Potassium 4.5 (3.3-5.1) mmol/L Chloride 107 (96-108) mmol/L Carbon Dioxide 24 (22-29) mmol/L Anion Gap 14 (12-20) BUN 6 L (9-16) mg/dL Creatinine 0.74 (0.5-1.4) mg/dL Estim Creat Clear Calc 103.0 Estimated GFR > 60 Random Glucose 92 (60-115) mg/dL Calcium 8.8 (8.4-10.2) mg/dL Magnesium 2.1 (1.6-2.6) mg/dL Total Bilirubin 0.7 (0.0-1.0) mg/dL Direct Bilirubin 0.2 (0.0-0.5) mg/dL AST 88 H (5-31) U/L ALT 202 H (0-31) U/L Alkaline Phosphatase 71 (39-117) U/L Total Protein 7.0 (6.5-8.0) g/dL Albumin 3.9 (3.5-5.0) g/dL Lipase 17 (8-78) U/L Urine Color Yellow Urine Appearance Clear Urine pH 5.5 (5.0-9.0) Ur Specific [place] 1.025 (1.005-1.025) Urine Protein Trace (Neg-Trace) mg/dL Urine Glucose (UA) Negative (Negative) mg/dL Urine Ketones Negative (Negative) mg/dL Urine Blood Trace H (Negative) Urine Nitrite Negative (Negative) Ur Leukocyte Esterase Negative (Negative) Urine RBC 3-5 H (0-2) /HPF Urine WBC 0-5 (0-5) /HPF Ur Squamous Epith Cells 6-10 (0-2) /HPF Urine Bacteria 1+ (None Seen) Hyaline Casts 0-2 (0-2) /LPF Medications Administered Discontinued Medications Generic Name Dose Route Start Last Admin Trade Name Freq PRN Reason Stop Dose Admin Sodium Chloride 1,000 mls @ 999 mls/hr 11/07/22 14:15 11/07/22 14:26 Ns IV 11/07/22 15:15 999 mls/hr .Q1H1M BALA Administration Ondansetron HCl 4 mg 11/07/22 14:14 11/07/22 14:26 Ondansetron Hcl 4 Mg/2 Ml Vial IVPUSH 11/07/22 14:15 4 mg ONCE ONE Administration Discharge Plan Discharge Clinical Impression: Colitis Patient Disposition: Home, Self-Care Instructions: Colitis (ED) Prescriptions: New ikqggqslp-aiefgy-ufrmcqvm-scop [] 16.2-0.1037 -0.0194 mg tablet 1 tab PO BID PRN (Reason: indigestion) Qty: 14 0RF amoxicillin-pot clavulanate 875-125 mg tablet 1 tab PO BID Qty: 20 0RF ondansetron 4 mg tablet,disintegrating 4 mg PO Q8H PRN (Reason: nausea and vomiting) Qty: 14 0RF No Action multivitamin Tablet 1 tab PO DAILY vitamin B complex Tablet 1 tab PO DAILY cholecalciferol (vitamin D3) 25 mcg (1,000 unit) capsule 25 mcg PO DAILY sumatriptan succinate [Imitrex] 50 mg tablet 50 mg PO Q2-4H PRN Rx Instructions: do not exceed 4 doses per 24 hrs
[2022-11-07 14:17] LABS: Bacteria Urine 1+ (None Seen); Hyaline Casts Urine 0-2 /LPF (0-2); WBC Urine 0-5 /HPF (0-5)
[2022-11-07] MEDS: 0.9 % Sodium Chloride 1,000 ML 999 ML IV (14:26)
[2022-11-07] MEDS: ondansetron HCL 4 MG/2 ML VIAL IVPUSH (14:26)
[2022-11-07 14:30] VITALS: BP 115/60; PULSE 71; RESP 14; O2SAT 98
--- NOTE | 2022-11-07 14:30 | PC.NURSE ---
Alert and oriented, resp even and unlabored. Denies any diarrhea today, is aware we are waiting for urine sample. IV established, fluids infusing.
[2022-11-07] MEDS: Amoxicillin/Potassium Clav 875 MG TABLET PO (17:09)
[2022-11-09 03:49] LABS: HBc Num1 0.11 S/CO (0.00-0.79); HBsAGNum1 0.37 S/CO (0.00-0.99); Hepatitis A Antibody IgM 0.14 Index (0-0.79); Hepatitis B Core Antibody Nonreactive (Nonreactive); Hepatitis B Surface Antigen Negative (Negative); ~HepC Num1 0.14 S/CO (0.00-0.79); ~Hepatitis A Antibody IgM Nonreactive (Nonreactive); ~Hepatitis B Surface Antibody NONREACTIVE (Nonreactive); ~Hepatitis C Antibody Nonreactive (Nonreactive)
== END 2022-11-07 17:12 | disposition home or self-care (01) ==
PROVIDERS: Physician Assistant; Emergency Provider Emergency Medicine; PCP Internal Medicine
DX: K52.9 Noninfective gastroenteritis and colitis, unspecified (principal); R10.9 Unspecified abdominal pain; E78.5 Hyperlipidemia, unspecified; Z79.899 Other long term (current) drug therapy
CPT/HCPCS: 36415; 74176; 80048; 80076; 81001; 81003; 83690; 83735; 85025; 86704; 86706; 86709; 86803; 87340; 96361; 96374; 99284; 99285; J2405

== ENCOUNTER 2023-01-01 13:00 | Emergency (ER) | payer OTHER, SELFPAY ==
--- NOTE | ~2023-01-01 | XR_ITS ---
EXAMINATION: XR CHEST CLINICAL INFORMATION: Shortness of breath and difficulty breathing COMPARISON: Previous chest x-ray most recent from 2019 TECHNIQUE: 2 views of the chest were obtained. FINDINGS: No significant abnormality is noted involving the heart, lungs, mediastinum, bony thorax or soft tissues. XR/XR chest 2V IMPRESSION: Unremarkable examination.
--- NOTE | 2023-01-01 14:07 | ED.SOB ---
HPI - SOB/Dyspnea General Chief Complaint: Upper Respiratory Symptoms Stated Complaint: Diff breathing Time Seen by Provider: 01/01/23 17:12 History of Present Illness HPI Narrative: patient complains of a hoarse voice a mild sore throat some congestion coughing for 2 days as well as some mild shortness of breath and a wheezing feeling She has no difficulty swallowing no chest pain no shortness of breath, she does have some sputum with the cough no abdominal pain no nausea vomiting or diarrhea no skin rash no dysuria Related Data Home Medications Medication Instructions Recorded Confirmed cholecalciferol (vitamin D3) 25 25 mcg PO DAILY 12/18/21 11/21/22 mcg (1,000 unit) capsule multivitamin 1 tab PO DAILY 12/18/21 11/21/22 vitamin B complex 1 tab PO DAILY 12/18/21 11/21/22 sumatriptan succinate 50 mg tablet 50 mg PO Q2-4H PRN 10/24/22 11/21/22 (Imitrex) Previous Rx's Medication Instructions Recorded ondansetron 4 mg disintegrating 4 mg PO Q8H PRN nausea and 11/07/22 tablet vomiting #14 tabs famotidine 20 mg tablet (Pepcid) 20 mg PO BEDTIME #30 tabs 11/21/22 loperamide 2 mg tablet (Imodium 2 mg PO Q6H PRN loose stool #24 11/21/22 A-D) tabs albuterol sulfate 90 mcg/actuation 2 puff inhalation Q4-6H shortness 01/01/23 aerosol inhaler of breath or wheezing #8.5 grams azithromycin 250 mg tablet See Rx Instructions PO .COMPLEX #6 01/01/23 (Zithromax Z-Mariusz) tabs ibuprofen 600 mg tablet 600 mg PO Q6H PRN fever or pain 01/01/23 #20 tabs prednisone 20 mg tablet 60 mg PO DAILY 4 days #12 tabs 01/01/23 Allergies Allergy/AdvReac Type Severity Reaction Status Date / Time apple [Apple] Allergy Unknown LIPS SWELL Verified 11/21/22 15:12 Latex, Natural Rubber AdvReac Mild TOPICAL Verified 11/21/22 15:12 IRRITANT PMFSH Past Medical History Source: nursing notes reviewed Medical History (Updated 01/02/23 @ 00:02 by Ruby Soler) Compression fracture of T11 vertebra Depression GERD (gastroesophageal reflux disease) Insomnia Kidney stones Lumbar radicular pain Metrorrhagia Migraines Pelvic abscess Recurrent respiratory infection Seizures Vitamin D deficiency Surgical History History of bilateral tubal ligation S/P ARVIN (total abdominal hysterectomy) Family History Family History Father Diabetes Hypertension CVD (cardiovascular disease) Stroke Hypercholesterolemia Mother Diabetes Hypertension Hypercholesterolemia Brother Hypertension Maternal Aunt Breast cancer Maternal Grandmother Cervical cancer Paternal Grandmother Breast cancer Paternal Uncle CVD (cardiovascular disease) Social History Social History Household Members: Family Housing: Apartment Do you presently have visiting nurse or other home services: No Alcohol intake: current Patient Tobacco Use Status: Never used Tobacco e-Cigarette/Vaping Use: Never Used Second Hand Smoke Exposure: No Advance Directives: No Advance Directives Information Provided: No service: No Current occupational status: employed Sexual orientation: Straight/Heterosexual Gender identity: Female Cognitive needs: No Hearing needs: No Vision needs: No Physical Exam Vital Signs: Vital Signs: Last Vital Signs Temp 98.2 F 01/01/23 17:11 Pulse 74 01/01/23 17:11 Resp 18 01/01/23 17:11 BP 146/95 H 01/01/23 17:11 Pulse Ox 97 01/01/23 17:11 O2 Del Method Room Air 01/01/23 17:11 BMI result Body Mass Index 32.6 General appearance no distress Eyes no redness or discharge Sinuses nontender The pharynx is clear without redness swelling or exudate uvula is midline the voice is mildly hoarse, but not muffled Membranes are moist Neck is supple Chest clear to auscultation bilateral Heart no murmur Abdomen soft nontender Extremities no calf tenderness or swelling Skin no rash Course Course Course Narrative: RME - 42 yo female presents to the ER for evaluation of loss of voice, SOB and cough since yesterday. She has seasonal allergies and has been taking Ruth. No hx asthma, nonsmoker. She reports similar symptoms 2 weeks ago after being outside. No fevers or known sick contacts. Plan: CXR, strep and covid swab Strep and COVID swabs were negative Chest x-ray was normal Patient was initially tight and mild wheezing and responded very well to albuterol with clear lungs and feeling breathing very improved She is treated with steroid and Motrin and well-appearing patient is discharged Medications Administered Discontinued Medications Generic Name Dose Route Start Last Admin Trade Name Freq PRN Reason Stop Dose Admin Albuterol/Ipratropium 3 ml 01/01/23 17:54 01/01/23 18:08 Albuterol/Iprat 2.5/0.5mg 3 Ml Ampul.Neb INHALE 01/01/23 17:55 3 ml ONCE ONE Administration Ibuprofen 600 mg 01/01/23 17:54 01/01/23 18:00 Ibuprofen 600 Mg Tablet PO 01/01/23 17:55 600 mg ONCE ONE Administration Prednisone 60 mg 01/01/23 17:54 01/01/23 18:00 Prednisone 20 Mg Tablet PO 01/01/23 17:55 60 mg ONCE ONE Administration Medical Decision Making Lab Data Labs: Lab Results 01/01/23 01/01/23 Range/Units 14:19 14:19 COVID-19 (ISHAN) Negative (Negative) COVID-19 Clin Com See Note S. pyogenes GrpA GABY Negative (Negative) Discharge Plan Discharge Clinical Impression: Bronchitis Patient Disposition: Home, Self-Care Additional Instructions: chest x-ray was normal We are doing prednisone both to help her breathing and to help her voice and sore throat It is likely that you have a viral syndrome but if cough worsens and it develops into a bronchitis I wrote a prescription for Zithromax antibiotic if cough worsens and persists Albuterol is a 2 puffs from the inhaler every 4-6 hours if needed for wheezing Follow with your doctor Return any time for difficulty breathing vomiting any worse condition any concerns Prescriptions: New azithromycin [Zithromax Z-Mariusz] 250 mg tablet See Rx Instructions .ROUTE .COMPLEX Qty: 6 0RF Rx Instructions: For 250 mg dose pack: take 500 mg today (day 1), then 250 mg for 4 days (days 2-5) prednisone 20 mg tablet 60 mg PO DAILY 4 Days Qty: 12 0RF albuterol sulfate 90 mcg/actuation HFA aerosol inhaler 2 puff inhalation Q4-6H Qty: 8.5 0RF ibuprofen 600 mg tablet 600 mg PO Q6H PRN (Reason: fever or pain) Qty: 20 0RF No Action ondansetron 4 mg tablet,disintegrating 4 mg PO Q8H PRN (Reason: nausea and vomiting) Qty: 14 0RF famotidine [Pepcid] 20 mg tablet 20 mg PO BEDTIME Qty: 30 0RF loperamide [Imodium A-D] 2 mg tablet 2 mg PO Q6H PRN (Reason: loose stool) Qty: 24 0RF multivitamin Tablet 1 tab PO DAILY vitamin B complex Tablet 1 tab PO DAILY cholecalciferol (vitamin D3) 25 mcg (1,000 unit) capsule 25 mcg PO DAILY sumatriptan succinate [Imitrex] 50 mg tablet 50 mg PO Q2-4H PRN Rx Instructions: do not exceed 4 doses per 24 hrs Stand Alone Forms: Work/School Release Interventions: ED Discharge Assessment Last Done: 01/01/23 19:28 Discharge Date/Time: 01/01/23 19:28
[2023-01-01 14:11] VITALS: BP 142/94; PULSE 82; RESP 18; TEMP 36.6; O2SAT 100; BMI 32.6
[2023-01-01 14:57] LABS: COVID-19 Test Negative (Negative); IDNOW Serial# 08D9AD1C; IDNOW Serial# BCCEAD1C; Strep A Nucleic Acid Negative (Negative)
[2023-01-01 17:11] VITALS: BP 146/95; PULSE 74; RESP 18; TEMP 36.8; O2SAT 97
--- NOTE | 2023-01-01 17:13 | MHC.EDTECH ---
this pct assumed care of pt at this time ,vitals sign taken ,pt resting in bed ,no issues .
[2023-01-01] MEDS: predniSONE 20 MG TABLET 60 MG PO (18:00)
[2023-01-01] MEDS: Ibuprofen 600 MG TABLET PO (18:00)
[2023-01-01] MEDS: Albuterol/Iprat 2.5/0.5MG 3 ML AMPUL.NEB INHALE (18:08)
--- NOTE | 2023-01-01 18:09 | PC.NURSE ---
pt medicated per OCT for 03/14 throat pain
== END 2023-01-01 19:28 | disposition home or self-care (01) ==
PROVIDERS: Physician Assistant; Emergency Provider Student in an Organized Health Care Education/Training Program; PCP Internal Medicine
DX: J40 Bronchitis, not specified as acute or chronic (principal); Z20.822 Contact with and (suspected) exposure to COVID-19; Z79.899 Other long term (current) drug therapy
CPT/HCPCS: 71046; 87635; 87651; 99283; 99284

== ENCOUNTER 2023-01-22 10:48 | Outpatient (REF) | payer OTHER, SELFPAY ==
[2023-01-22 12:28] LABS: Alanine Aminotransferase 14 U/L (0-31); Albumin Level 3.7 g/dL (3.5-5.0); Alkaline Phosphatase 65 U/L (39-117); Anion Gap 13 (12-20); Aspartate Amino Transferase 14 U/L (5-31); Bilirubin Total 0.6 mg/dL (0.0-1.0); Blood Urea Nitrogen 7 mg/dL (9-16); Calcium 9.2 mg/dL (8.4-10.2); Carbon Dioxide 23 mmol/L (22-29); Chloride 106 mmol/L (96-108); Cholesterol 193 mg/dL; Estimated Glomerular Filt Rate > 60; Glucose Random 91 mg/dL (60-115); HDL Cholesterol 40 mg/dL; LDL Cholesterol Calculated 133 mg/dl; Potassium 4.1 mmol/L (3.3-5.1); Sodium 138 mmol/L (135-145); Total Protein 7.1 g/dL (6.5-8.0); Triglycerides 101 mg/dL
== END 2023-01-22 10:49 | disposition home or self-care (01) ==
LOC: HO.LAB 10:48
PROVIDERS: PCP Internal Medicine; Visit Provider Nurse Practitioner Family
DX: E78.00 Pure hypercholesterolemia, unspecified (principal)
CPT/HCPCS: 36415; 80053; 80061

== ENCOUNTER 2023-07-01 17:27 | Emergency (ER) | payer OTHER, SELFPAY ==
[2023-07-01 17:44] VITALS: BP 147/97; PULSE 93; RESP 18; TEMP 37.1; O2SAT 99; BMI 32.7
--- NOTE | 2023-07-01 17:44 | ED.URI ---
HPI - URI/Sore Throat General Chief Complaint: Upper Respiratory Symptoms Stated Complaint: flu like symptoms Time Seen by Provider: 07/01/23 19:07 Source: patient Mode of arrival: ambulatory Limitations: no limitations History of Present Illness HPI Narrative: Patient is a 42 old female who presents emergency department for evaluation of sore throat, laryngitis, productive cough with green phlegm, nasal congestion with onset of symptoms yesterday. Reports every time she gets sick she developed laryngitis. She denies fevers, chills, neck pain, inability to swallow, excessive drooling, chest pain, shortness of breath, difficulty breathing. Denies known sick contacts. Related Data Home Medications Medication Instructions Recorded Confirmed cholecalciferol (vitamin D3) 25 25 mcg PO DAILY 12/18/21 11/21/22 mcg (1,000 unit) capsule multivitamin 1 tab PO DAILY 12/18/21 11/21/22 vitamin B complex 1 tab PO DAILY 12/18/21 11/21/22 sumatriptan succinate 50 mg tablet 50 mg PO Q2-4H PRN 10/24/22 11/21/22 (Imitrex) Previous Rx's Medication Instructions Recorded ondansetron 4 mg disintegrating 4 mg PO Q8H PRN nausea and 11/07/22 tablet vomiting #14 tabs famotidine 20 mg tablet (Pepcid) 20 mg PO BEDTIME #30 tabs 11/21/22 loperamide 2 mg tablet (Imodium 2 mg PO Q6H PRN loose stool #24 11/21/22 A-D) tabs albuterol sulfate 90 mcg/actuation 2 puff inhalation Q4-6H shortness 01/01/23 aerosol inhaler of breath or wheezing #8.5 grams azithromycin 250 mg tablet See Rx Instructions PO .COMPLEX #6 01/01/23 (Zithromax Z-Mariusz) tabs ibuprofen 600 mg tablet 600 mg PO Q6H PRN fever or pain 01/01/23 #20 tabs prednisone 20 mg tablet 60 mg (3 x 20 mg) PO DAILY 4 days 01/01/23 #12 tabs Allergies Allergy/AdvReac Type Severity Reaction Status Date / Time apple [Apple] Allergy Unknown LIPS SWELL Verified 11/21/22 15:12 Latex, Natural Rubber AdvReac Mild TOPICAL Verified 11/21/22 15:12 IRRITANT Review of Systems Review of Systems: Yes all other systems are reviewed and are negative [facility] Past Medical History Attestation statement: The following information was validated with the patient. Source: old records reviewed Medical History GERD (gastroesophageal reflux disease) Recurrent respiratory infection Lumbar radicular pain Compression fracture of T11 vertebra Insomnia Vitamin D deficiency Pelvic abscess Metrorrhagia Kidney stones Depression Migraines Seizures Surgical History S/P ARVIN (total abdominal hysterectomy) History of bilateral tubal ligation Family History Family History Father Diabetes Hypertension CVD (cardiovascular disease) Stroke Hypercholesterolemia Mother Diabetes Hypertension Hypercholesterolemia Brother Hypertension Maternal Aunt Breast cancer Maternal Grandmother Cervical cancer Paternal Grandmother Breast cancer Paternal Uncle CVD (cardiovascular disease) Social History Household Members: Family Housing: Apartment Do you presently have visiting nurse or other home services: No Alcohol intake: current Patient Tobacco Use Status: Never used Tobacco e-Cigarette/Vaping Use: Never Used Second Hand Smoke Exposure: No Advance Directives: No Advance Directives Information Provided: No service: No Current occupational status: employed Sexual orientation: Straight/Heterosexual Gender identity: Female Cognitive needs: No Hearing needs: No Vision needs: No Physical Exam Vital Signs: Vital Signs: Last Vital Signs Temp 98.8 F 07/01/23 17:44 Pulse 93 07/01/23 17:44 Resp 18 07/01/23 17:44 BP 147/97 H 07/01/23 17:44 Pulse Ox 99 07/01/23 17:44 O2 Del Method Room Air 07/01/23 17:44 BMI result Body Mass Index 32.7 Appearance: Alert.?Oriented to person, place and time. No acute distress.?Normal affect. Eyes: Pupils equal, round and reactive to light.? ENT: Pharynx erythematous without exudates or tonsillar hypertrophy. Uvula is midline. No trismus. No drooling. Neck: Normal inspection.? Neck supple.?? CVS: Heart sounds normal. Normal heart rate and rhythm.? Pulses normal.?? Respiratory: No respiratory distress.? Lung sounds clear to auscultation bilaterally?? Abdomen: Soft and non-tender. Normoactive bowel sounds. Skin: Skin warm and dry.? Normal skin color.? Extremities: No lower extremity edema.? No calf ttp? Neuro: Moves all extremities spontaneously. Sensation intact bilaterally. Ambulates with normal steady gait. Course Course Course Narrative: This is a rapid medical exam. Defer additional HPI, ROS, PE to primary provider. 42 yo female with no known medical history here with URI symptoms since yesterday. Will obtain viral testing, strep testing VSS Medical Decision Making Medical Decision Making MDM Narrative: Patient is a 42-year-old female presenting for evaluation of upper respiratory symptoms. COVID-19/influenza/RSV and strep a testing are all negative. Examination is not consistent with peritonsillar retropharyngeal abscess. At this time history and physical exam not consistent with ACS/PE/pneumonia. Well-appearing, nontoxic, afebrile, no tachycardia or tachypnea/hypoxia. Speaking full sentences, ambulatory with steady gait. Pharyngitis likely secondary to viral upper respiratory infection. Discussed conservative treatment including rest, hydration, Tylenol/ibuprofen as needed for fever and body aches, saline nasal spray, humidifier, [id number]-tin-[id number] cold medication. Advised to follow-up with primary care provider as needed, discussed reasons to return back to the emergency department. All questions were answered. Patient discharged home in stable condition. Provided with a return to work/school note. Differential Diagnosis Differential Diagnoses: The differential diagnosis associated with the presentation includes (As noted above) Lab Data [facility] Lab Attestation statement: I reviewed the patient's lab results. (As noted above) Labs: Lab Results 07/01/23 Range/Units 18:26 Influenza Type A (PCR) NEGATIVE (Negative) Influenza Type B (PCR) NEGATIVE (Negative) RSV RNA Qual (PCR) NEGATIVE (Negative) SARS-CoV-2 RNA (RT-PCR) NEGATIVE (Negative) S. pyogenes GrpA GABY Negative (Negative) Independent Historian Clinical information obtained from an independent historian. History obtained from or confirmed by: Spouse (Present at bedside who confirms history) Tests considered The following testing was considered but not selected: Consider CXR, see narrative above for further detail Prescription Management I considered prescription management with: Antibiotic (Likely viral in nature, no indication for antibiotic at this time.) Discharge Plan Discharge Clinical Impression: Laryngitis, Upper respiratory infection Patient Disposition: Home, Self-Care Instructions: Laryngitis (ED), Upper Respiratory Infection (ED) Additional Instructions: Be sure to rest, stay well hydrated drinking plenty of fluids, eat small frequent meals. Tylenol/ibuprofen can be used as needed for fever/pain. Cafz-gmk-nsceocd cold medications may be helpful as well for symptoms. Saline nasal spray, humidifier may be helpful for nasal congestion. You may return to the emergency department with any new or worsening symptoms or concerns. Follow-up with your primary care provider as needed. Prescriptions: No Action ondansetron 4 mg tablet,disintegrating 4 mg PO Q8H PRN (Reason: nausea and vomiting) Qty: 14 0RF azithromycin [Zithromax Z-Mariusz] 250 mg tablet See Rx Instructions .ROUTE .COMPLEX Qty: 6 0RF Rx Instructions: For 250 mg dose pack: take 500 mg today (day 1), then 250 mg for 4 days (days 2-5) prednisone 20 mg tablet 60 mg PO DAILY 4 Days Qty: 12 0RF albuterol sulfate 90 mcg/actuation HFA aerosol inhaler 2 puff inhalation Q4-6H Qty: 8.5 0RF ibuprofen 600 mg tablet 600 mg PO Q6H PRN (Reason: fever or pain) Qty: 20 0RF famotidine [Pepcid] 20 mg tablet 20 mg PO BEDTIME Qty: 30 0RF loperamide [Imodium A-D] 2 mg tablet 2 mg PO Q6H PRN (Reason: loose stool) Qty: 24 0RF multivitamin Tablet 1 tab PO DAILY vitamin B complex Tablet 1 tab PO DAILY cholecalciferol (vitamin D3) 25 mcg (1,000 unit) capsule 25 mcg PO DAILY sumatriptan succinate [Imitrex] 50 mg tablet 50 mg PO Q2-4H PRN Rx Instructions: do not exceed 4 doses per 24 hrs Referrals: Po,Delmy Jeffries MD [Primary Care Provider] - Stand Alone Forms: Work/School Release
[2023-07-01 18:48] LABS: IDNOW Serial# 08D9AD1C; Strep A Nucleic Acid Negative (Negative)
[2023-07-01 19:07] LABS: Influenza A PCR NEGATIVE (Negative); Influenza B PCR NEGATIVE (Negative); Resp Syncy Virus RNA Qual PCR NEGATIVE (Negative); SARS COV2 PCR INHOUSE NEGATIVE (Negative)
[2023-07-01 21:34] VITALS: BP 144/86; PULSE 76; RESP 19; TEMP 36.7; O2SAT 98
--- NOTE | 2023-07-01 21:40 | PC.NURSE ---
no iv, pt has a sore throat and is able to swallow no resp distress.
== END 2023-07-01 21:46 | disposition home or self-care (01) ==
PROVIDERS: Nurse Practitioner Family; Emergency Provider Emergency Medicine; PCP Internal Medicine
DX: J06.9 Acute upper respiratory infection, unspecified (principal); J04.0 Acute laryngitis; Z20.822 Contact with and (suspected) exposure to COVID-19; Z20.828 Contact with and (suspected) exposure to other viral communicable diseases
CPT/HCPCS: 0241U; 87651; 99283; 99284

== ENCOUNTER 2023-08-06 10:21 | Outpatient (AMB) | payer OTHER, SELFPAY ==
--- NOTE | 2023-08-06 10:23 | MHC.OFFVIS ---
Intake Vital Signs 08/06/23 10:29 Height 5 ft 4 in Weight 187 lb 6 oz BMI 32.2 BP 126/74 Blood Pressure Location Rt brachial Position Sitting Intake Visit Reasons: BILINGUAL SECRETARY annual exam Allergies apple [Apple] Allergy (Unknown, Verified 08/06/23 10:28) LIPS SWELL Latex, Natural Rubber Adverse Reaction (Mild, Verified 08/06/23 10:28) TOPICAL IRRITANT Is last menstrual period known: No (hysterectomy ) HPI HPI Comments History of Present Illness Details Presenting for annual exam. No complaints. Last Pap/HPV was in 02/21 was ascus/HPV positive followed by colpo biopsy which showed MELVIN 1, the patient had ARVIN bilateral salpingectomy for AUB, cervix pathology showed MELVIN 1. No history of severe dysplasia Last Mammogram was BI-RADS 1 in 10/25 [facility] Medical History (Updated 08/06/23 @ 10:29 by Owen Juárez MD) Dysplasia of cervix, low grade (MELVIN 1) GERD (gastroesophageal reflux disease) Recurrent respiratory infection Lumbar radicular pain Compression fracture of T11 vertebra Insomnia Vitamin D deficiency Pelvic abscess Metrorrhagia Kidney stones Depression Migraines Seizures Surgical History S/P ARVIN (total abdominal hysterectomy) History of bilateral tubal ligation Family History Father Diabetes Hypertension CVD (cardiovascular disease) Stroke Hypercholesterolemia Mother Diabetes Hypertension Hypercholesterolemia Brother Hypertension Maternal Aunt Breast cancer Maternal Grandmother Cervical cancer Paternal Grandmother Breast cancer Paternal Uncle CVD (cardiovascular disease) Social History Household Members: Family Housing: Apartment Do you presently have visiting nurse or other home services: No Alcohol intake: current Alcohol intake frequency: holidays/special occasions only Comment: pt sleeping Patient Tobacco Use Status: Never used Tobacco e-Cigarette/Vaping Use: Never Used Second Hand Smoke Exposure: No service: No Current occupational status: employed Sexual orientation: Straight/Heterosexual Gender identity: Female Cognitive needs: No Hearing needs: No Vision needs: No Female Reproductive History Menstrual Age of Menarche: 10 Review of Systems Const All systems reviewed & are unremarkable except as noted in HPI and below Card Reports as per HPI and Reports no additional complaints Resp Reports as per HPI and Reports no additional complaints GI Reports as per HPI and Reports no additional complaints Reports as per HPI Physical Exam Vital Signs: Last Vital Signs BP 126/74 08/06/23 10:29 BMI result Body Mass Index 32.2 Const General: cooperative, healthy appearing and comfortable General: Yes bladder normal to palpation External Female Exam: No lesion Speculum Exam - Vagina: normal appearance of the vagina, normal vaginal discharge and not erythematous Speculum Exam - Cervix: Cervix absent Bimanual exam- vagina & uterus: bladder normal to palpation and uterus absent Bimanual Exam- Adnexa, other: Other (No masses detected) Assessment & Plan Assessment & Plan (1) Well woman exam: Code(s): Z01.419 - Encounter for gynecological examination (general) (routine) without abnormal findings Plan: Cotesting not indicated since the patient has no history of severe dysplasia last 25 years is status post hysterectomy for benign reasons. Ordered screening Mammogram. Counseled the patient about the recommended dietary allowance of 1000 mg of Calcium & 600 IU of vitamin D. The patient was instructed to perform monthly self-breast exams and to schedule an annual exam in a year; All questions answered and the patient verbalized understanding. Instructed the patient to schedule annual exam in a year Orders: Orders MM screening mammo BI Today Z12.31 - Encounter for screening mammogram for malignant neoplasm of breast Coding Level of Care Code Est Pt Prev Care 40-64y(60389) Diagnoses Well woman exam Z01.419
[2023-08-06 10:29] VITALS: BP 126/74; BMI 32.2
== END 2023-08-06 11:20 | disposition home or self-care (01) ==
LOC: HO.HWS 10:21
PROVIDERS: PCP Internal Medicine; Visit Provider Obstetrics & Gynecology
DX: Z01.419 Encounter for gynecological examination (general) (routine) without abnormal findings (principal)
CPT/HCPCS: 99396

== ENCOUNTER → 2023-08-06 10:21 | Outpatient (BNVA) | payer OTHER, SELFPAY | PROVIDERS: PCP Internal Medicine; Visit Provider Obstetrics & Gynecology | DX: Z01.419 Encounter for gynecological examination (general) (routine) without abnormal findings (principal) | CPT/HCPCS: 99396 ==

== ENCOUNTER 2023-08-09 10:49 | Outpatient (AMB) | payer OTHER, SELFPAY ==
[2023-08-09 12:58] VITALS: BP 126/76; PULSE 76; TEMP 36.4; O2SAT 98
--- NOTE | 2023-08-09 12:58 | MHC.OFFWIV ---
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 H/o Bronchitis in the past. Denies fever, chills, CP or nausea. [facility] Medical History (Updated 08/06/23 @ 10:29 by Owen Juárez MD) Dysplasia of cervix, low grade (MELVIN 1) GERD (gastroesophageal reflux disease) Recurrent respiratory infection Lumbar radicular pain Compression fracture of T11 vertebra Insomnia Vitamin D deficiency Pelvic abscess Metrorrhagia Kidney stones Depression Migraines Seizures Surgical History S/P ARVIN (total abdominal hysterectomy) History of bilateral tubal ligation Family History Father Diabetes Hypertension CVD (cardiovascular disease) Stroke Hypercholesterolemia Mother Diabetes Hypertension Hypercholesterolemia Brother Hypertension Maternal Aunt Breast cancer Maternal Grandmother Cervical cancer Paternal Grandmother Breast cancer Paternal Uncle CVD (cardiovascular disease) Social History Household Members: Family Housing: Apartment Do you presently have visiting nurse or other home services: No Alcohol intake: current Alcohol intake frequency: holidays/special occasions only Comment: pt sleeping Patient Tobacco Use Status: Never used Tobacco e-Cigarette/Vaping Use: Never Used Second Hand Smoke Exposure: No service: No Current occupational status: employed Sexual orientation: Straight/Heterosexual Gender identity: Female Cognitive needs: No Hearing needs: No Vision needs: No Female Reproductive History Menstrual Age of Menarche: 10 Review of Systems Const All systems reviewed & are unremarkable except as noted in HPI and below Physical Exam Vital Signs: Last Vital Signs Temp 97.5 F 08/09/23 12:58 Pulse 76 08/09/23 12:58 BP 126/76 08/09/23 12:58 Pulse Ox 98 08/09/23 12:58 Oxygen Delivery Method Room Air 08/09/23 12:58 BMI result Body Mass Index 3.3 Const General: cooperative, comfortable, no acute distress and other (Coughing in the visit, appears uncomfortable) HEENT Head: Yes normocephalic Ears: external ears normal and TM abnormal Mouth: Normal oral and palatal mucosa present and moist mucous membranes Throat: Yes uvula midline Resp Effort & Inspection: Actively coughing Quality: actively coughing Auscultation: clear to auscultation bilaterally Cardio Rate: regular rate Rhythm: regular rhythm Assessment & Plan Assessment & Plan (1) Cough in adult: Code(s): R05.9 - Cough, unspecified Plan: - Chest Xray WNL - Will start Abx, steroids, in haler and cough supp - Advised to f/u with PCP for poss Pulmonology assessment - Warm fluids, with Honey - Rest Plan - Chest Xray WNL - Will start Abx, steroids, in haler and cough supp - Advised to f/u with PCP for poss Pulmonology assessment - Warm fluids, with Honey - Rest Orders: Orders XR chest 2V 08/09/23 R05.9 - Cough, unspecified Medications: New albuterol sulfate 90 mcg/actuation 2 puffs inhalation Q4-6H PRN 8.5 grams 0RF shortness of breath or wheezing dextromethorphan HBr 15 mg (5 mL) PO Q8H 118 mL 0RF azithromycin 500 mg PO DAILY 5 days 5 tabs 0RF prednisone 50 mg PO DAILY 5 days 5 tabs 0RF Coding Level of Care Code Est Pt Level 3 (00835) Diagnoses Cough in adult R05.9 Time Spent (min) 15
== END 2023-08-09 14:19 | disposition home or self-care (01) ==
PROVIDERS: PCP Internal Medicine; Visit Provider Nurse Practitioner Family
DX: R05.9 Cough, unspecified (principal)
CPT/HCPCS: 99213

== ENCOUNTER 2023-08-09 13:43 | Outpatient (REF) | payer OTHER, SELFPAY | END 2023-08-09 13:44 | disposition home or self-care (01) | LOC: HO.HMGCX 13:43 | PROVIDERS: PCP Internal Medicine; Visit Provider Nurse Practitioner Family | DX: R05.9 Cough, unspecified (principal) | CPT/HCPCS: 71046 ==

== ENCOUNTER 2023-10-14 17:06 | Outpatient (AMB) | payer OTHER, SELFPAY ==
--- NOTE | 2023-10-14 17:08 | MHC.PC.OV ---
Vital Signs 10/14/23 17:09 Height 5 ft 4 in Weight 192 lb BMI 33.0 BP 136/74 Blood Pressure Location Lt brachial Position Sitting Intake Visit Reasons: on going cold Intake Note: Patient here c/o ongoing cough, sick every month Magnetic Locater Required: No Accompanied by: Significant Other Allergies apple [Apple] Allergy (Unknown, Verified 10/14/23 17:11) LIPS SWELL Latex, Natural Rubber Adverse Reaction (Mild, Verified 10/14/23 17:11) TOPICAL IRRITANT Medication List - Last Reconciled 10/14/23 by Delmy Millan MD albuterol sulfate 90 mcg/actuation 2 puffs inhalation Q4-6H PRN budesonide-formoterol 160-4.5 mcg/actuation (Symbicort) 2 puffs inhalation BID prednisone 4 tabs QD x 2 days then 3 tabs QD x 2 days then 2 tabs Qd x 2 days then 1 tab QD x 2 days PO daily; sumatriptan succinate (Imitrex) 50 mg PO Q2-4H PRN Tobacco use date assessed: 10/14/23 Dental Screening Dental Screen Date: 10/14/23 Did you have a dental visit in the last 12 months?: No Did you have a dental problem in the last 6 months where you did not have access to dental care?: No Was dental information given to patient?: Patient has dentist HPI on going cold HPI Details 43-year-old obese female with a history of seizures GERD hypercholesterolemia coming in for follow-up. Last seen in October 2022. Mammogram is due seen in the Urgent Center August 2023 having a cough and loss of voice chest x-ray requested which was negative Zithromax prescribed as well as prednisone. June [facility]gent [facility] visit for sore throat productive cough treated with Z-Mariusz also. December 2022 ER visit for shortness of breath also treated with Z-Mariusz again. November 2022 seen by the nurse practitioner having diarrhea and abdominal cramping prescribed famotidine. cough, loose voice, chest tightness, prompted for consultation. [facility] Medical History (Updated 10/14/23 @ 17:26 by Delmy Millan MD) Dysplasia of cervix, low grade (MELVIN 1) GERD (gastroesophageal reflux disease) Recurrent respiratory infection Lumbar radicular pain Compression fracture of T11 vertebra Insomnia Vitamin D deficiency Pelvic abscess Metrorrhagia Kidney stones Depression Migraines Seizures Surgical History S/P ARVIN (total abdominal hysterectomy) History of bilateral tubal ligation Family History (Updated 10/14/23 @ 17:13 by VAL Ordonez) Father Diabetes Hypertension CVD (cardiovascular disease) Stroke Hypercholesterolemia Mother Diabetes Hypertension Hypercholesterolemia Brother Hypertension Maternal Aunt Breast cancer Maternal Grandmother Cervical cancer Paternal Grandmother Breast cancer Paternal Uncle CVD (cardiovascular disease) Social History Household Members: Family Housing: Apartment Do you presently have visiting nurse or other home services: No Alcohol intake: current Alcohol intake frequency: holidays/special occasions only Comment: pt sleeping Patient Tobacco Use Status: Never used Tobacco e-Cigarette/Vaping Use: Never Used Second Hand Smoke Exposure: No service: No Current occupational status: employed Sexual orientation: Straight/Heterosexual Gender identity: Female Cognitive needs: No Hearing needs: No Vision needs: Yes Female Reproductive History Menstrual Age of Menarche: 10 Questionnaire PHQ-9 Over the last 2 weeks, how often have you been bothered by any of the following problems? 1. Little interest or pleasure in doing things: not at all 2. Feeling down, depressed, or hopeless: not at all 3. Trouble falling or staying asleep, or sleeping too much: not at all 4. Feeling tired or having little energy: not at all 5. Poor appetite or overeating: not at all 6. Feeling bad about yourself - or that you are a failure or have let yourself or your family down: not at all 7. Trouble concentrating on things, such as reading the newspaper or watching television: not at all 8. Moving or speaking so slowly that other people could have noticed. Or the opposite - being so fidgety or restless that you have been moving around a lot more than usual: not at all 9. Thoughts that you would be better off or of hurting yourself in some way: not at all Total score: 0 Source: Developed by Drs. Felix Menon, Shanon Dickey, Christian Mai and colleagues, with an educational tod from [employer]. Thrive Questionnaire Date Thrive assessed: 10/14/23 I am a: Patient What is your living situation today?: I have a steady place to live Within the past 12 months, did the food you bought not last and you didn't have the money to get more?: Never true Within the past 12 months, did you worry whether your food would run out before you got money to buy more?: Never true Do you have trouble paying for medicines?: No Do you have trouble getting transportation to medical appointments?: No Do you have trouble paying your heating and electricity bill?: No Do you have trouble taking care of your child, family member or friend?: No Do you have trouble with day-to-day activities such as bathing, preparing meals, shopping, managing finances, etc.?: No Are you currently unemployed and looking for a job?: No Are you interested in more education?: No Please select the resources that you would like help with: None Currently or been in a relationship where the following occur: no concerns reported THRIVE Score: 0 AUDIT C Alcohol Use Questionnaire (AUDIT-C) 1. How often do you have a drink containing alcohol?: Monthly or less 2. How many drinks containing alcohol do you have on a typical day when you are drinking?: 1 or 2 3. How often do you have six or more drinks on one occasion?: Never Total Score: 1 OMAR-7 AMB Questionnaire OMAR-7 Date OMAR - 7 assessed: 10/14/23 Feeling nervous, anxious, or on edge: 0 = Not at all Not being able to stop or control worryin = Not at all Worrying too much about different things: 0 = Not at all Trouble relaxin = Not at all Being so restless that it is hard to sit still: 0 = Not at all Becoming easily annoyed or irritable: 0 = Not at all Feeling afraid as if something awful might happen: 0 = Not at all Total OMAR-7 score (0-4 normal; 5-9 mild; 10-14 moderate; 15-21 severe): 0 Source: Developed by Drs. Felix Menon, Shanon Dickey, Christian Mai and colleagues, with an educational tod from [employer]. Physical exam (Primary Care) Vital Signs: Last Vital Signs BP 136/74 10/14/23 17:09 BMI result Body Mass Index 33.0 Tobacco/Smoking Status: Tobacco use Status Tobacco use date assessed 10/14/23 10/14/23 17:16 Patient Tobacco Use Status Never used Tobacco 10/14/23 17:16 e-Cigarette/Vaping Use Never Used 10/14/23 17:16 PHQ-9: PHQ-9 Score PHQ-9: Total score 0 10/14/23 17:23 Thrive Assessment: Date of Thrive Assessment Date Thrive assessed 10/14/23 10/14/23 17:16 Currently or been in a relationship where the following occur: no concerns reported Const General: alert; No acute distress Eyes Conjunctivae: conjunctivae normal Resp Other: Bilateral wheezing and rhonchi heard on both lung zapien Cardio Rate: regular rate Rhythm: regular rhythm GI Inspection: Yes normal to inspection Extrem General: Yes normal to inspection and No edema Assessment and Plan Assessment & Plan (1) Chronic cough: Code(s): R05.3 - Chronic cough Plan: Patient has been having recurrent bronchitis for the last year since December 2022 and has been treated multiple times with Zithromax. Patient did have an x-ray done which revealed negative results. (2) Hypercholesterolemia: Code(s): E78.00 - Pure hypercholesterolemia, unspecified Plan: Avoid fried foods, chicken skin, eggs, butter margarine, pastries and meat. Be it pork or beef they have a lot of cholesterol LDL goal of less than 130 and triglyceride of less than 150 (3) Seizures: Comment: Partial complex Code(s): R56.9 - Unspecified convulsions Plan: Stable (4) GERD (gastroesophageal reflux disease): Code(s): K21.9 - Gastro-esophageal reflux disease without esophagitis Plan: Avoid the foods that causes that usually spicy foods, tomato products, juices, coffee, soda and foods that your sensitive to. After eating do not lie down, allow 3-4 hours before in lie down. And keep the head of bed above 30 degrees to avoid the acid from going up. (5) Colon cancer screening: Code(s): Z12.11 - Encounter for screening for malignant neoplasm of colon Plan: Patient is reminded about colonoscopy (6) Asthmatic bronchitis: Code(s): J45.909 - Unspecified asthma, uncomplicated Plan: Discussed with the patient that this is asthmatic bronchitis. Patient does have a pet at home and concern that she may be reacting to this. Albuterol inhaler refilled but sent in controller inhaler called Symbicort 2 puffs twice a day. Discussed with the patient how to use the inhaler and advised to rinse mouth after using the Symbicort. Prednisone prescription still sent in just in case the patient's wheezing is not controlled. Pulmonary referral done as well as PFT. Orders: Orders PFT pulmonary function test Today J45.909 - Unspecified asthma, uncomplicated Referrals Pulmonology Referral J45.909 - Unspecified asthma, uncomplicated Medications: New prednisone 4 tabs QD x 2 days then 3 tabs QD x 2 days then 2 tabs Qd x 2 days then 1 tab QD x 2 days PO daily; 20 tabs 0RF J45.909 - Unspecified asthma, uncomplicated budesonide-formoterol 160-4.5 mcg/actuation (Symbicort) 2 puffs inhalation BID 10.2 grams 3RF J45.909 - Unspecified asthma, uncomplicated Refilled albuterol sulfate 90 mcg/actuation 2 puffs inhalation Q4-6H PRN 8.5 grams 0RF shortness of breath or wheezing J45.909 - Unspecified asthma, uncomplicated Coding Level of Care Code Est Pt Level 4 (68762) Diagnoses Chronic cough R05.3 Hypercholesterolemia E78.00 Seizures R56.9 GERD (gastroesophageal reflux disease) K21.9 Colon cancer screening Z12.11 Asthmatic bronchitis J45.909
[2023-10-14 17:09] VITALS: BP 136/74; BMI 33.0
== END 2023-10-14 17:40 | disposition home or self-care (01) ==
PROVIDERS: PCP Internal Medicine; Visit Provider Internal Medicine
DX: R05.3 Chronic cough (principal); R56.9 Unspecified convulsions; E78.00 Pure hypercholesterolemia, unspecified; K21.9 Gastro-esophageal reflux disease without esophagitis; Z12.11 Encounter for screening for malignant neoplasm of colon; J45.909 Unspecified asthma, uncomplicated
CPT/HCPCS: 99214

== ENCOUNTER 2023-10-21 15:02 | Outpatient (AMB) | payer OTHER, SELFPAY ==
--- NOTE | 2023-10-21 15:08 | A.OFFPC_ITS ---
Intake Visit Reasons: Cough, stomach pain, headaches Hunting And Fishing Guide Required: No Allergies apple [Apple] Allergy (Unknown, Verified 10/21/23 15:08) LIPS SWELL Latex, Natural Rubber Adverse Reaction (Mild, Verified 10/21/23 15:08) TOPICAL IRRITANT Tobacco use date assessed: 10/21/23 HPI Cough, stomach pain, headaches HPI Details 43-year-old obese female with chronic co ugh diagnosis having asthmatic bronchitis history of seizures hypercholesterolemia GERD last seen in 10/14/2023. Patient was prescribed Symbicort and albuterol. Patient was sent for pulmonary as well as PFTs. Patient calls in for continuing cough. Patient will be seeing the pulmonary in 2 days. Meanwhile with this cough patient continues to cough and having a lot of pain in the abdomen as well as headaches already. [facility] Medical History (Updated 10/21/23 @ 18:02 by Delmy Millan MD) Dysplasia of cervix, low grade (MELVIN 1) GERD (gastroesophageal reflux disease) Recurrent respiratory infection Lumbar radicular pain Compression fracture of T11 vertebra Insomnia Vitamin D deficiency Pelvic abscess Metrorrhagia Kidney stones Depression Migraines Seizures Surgical History S/P ARVIN (total abdominal hysterectomy) History of bilateral tubal ligation Family History (Updated 10/14/23 @ 17:13 by VAL Ordonez) Father Diabetes Hypertension CVD (cardiovascular disease) Stroke Hypercholesterolemia Mother Diabetes Hypertension Hypercholesterolemia Brother Hypertension Maternal Aunt Breast cancer Maternal Grandmother Cervical cancer Paternal Grandmother Breast cancer Paternal Uncle CVD (cardiovascular disease) Social History Household Members: Family Housing: Apartment Do you presently have visiting nurse or other home services: No Alcohol intake: current Alcohol intake frequency: holidays/special occasions only Comment: pt sleeping Patient Tobacco Use Status: Never used Tobacco e-Cigarette/Vaping Use: Never Used Second Hand Smoke Exposure: No service: No Current occupational status: employed Sexual orientation: Straight/Heterosexual Gender identity: Female Cognitive needs: No Hearing needs: No Vision needs: Yes Female Reproductive History Menstrual Age of Menarche: 10 Questionnaire Thrive Questionnaire Date Thrive assessed: 10/14/23 AUDIT C Alcohol Use Questionnaire (AUDIT-C) 1. How often do you have a drink containing alcohol?: Monthly or less 2. How many drinks containing alcohol do you have on a typical day when you are drinking?: 1 or 2 3. How often do you have six or more drinks on one occasion?: Never Total Score: 1 OMAR-7 AMB Questionnaire OMAR-7 Date OMAR - 7 assessed: 10/14/23 Source: Developed by Drs. Felix Menon, Shanon Dickey, Christian Mai and colleagues, with an educational tod from [employer]. Physical exam (Primary Care) Tobacco/Smoking Status: Tobacco use Status Tobacco use date assessed 10/21/23 10/21/23 15:10 Patient Tobacco Use Status Never used Tobacco 10/21/23 15:10 e-Cigarette/Vaping Use Never Used 10/21/23 15:10 Thrive Assessment: Date of Thrive Assessment Date Thrive assessed 10/14/23 10/21/23 15:10 Telehealth Telehealth Location of provider rendering services: practice address Location of patient: address on file Patient Identification confirmed using: Name, : Yes Telehealth method: video (iphone) Patient verbally consented to treatment: Yes Patient verbally consented to billing insurance company: Yes Patient informed of any privacy concerns related to visit: Yes Assessment and Plan Assessment & Plan (1) Mild persistent asthma: Code(s): J45.30 - Mild persistent asthma, uncomplicated Plan: scheduled to see Pulmonary in 2 days (2) Asthmatic bronchitis: Code(s): J45.909 - Unspecified asthma, uncomplicated Plan: Patient continues to cough and having abdominal pains already and so advised that we will send in for a cough medication to take at nighttime and will send in for antibiotic doxycycline twice a day. Medications: New doxycycline hyclate 100 mg PO BID 14 caps 0RF J45.909 - Unspecified asthma, uncomplicated benzonatate 200 mg PO .HS 20 caps 0RF J45.909 - Unspecified asthma, uncomplicated Coding Level of Care Code Tele Est Pt Level 3 (35125) Diagnoses Mild persistent asthma J45.30 Asthmatic bronchitis J45.909
== END 2023-10-21 18:27 | disposition home or self-care (01) ==
LOC: HO.HMGH 15:02
PROVIDERS: PCP Internal Medicine; Visit Provider Internal Medicine
DX: J45.30 Mild persistent asthma, uncomplicated (principal)
CPT/HCPCS: 99213

== ENCOUNTER 2023-10-23 09:22 | Outpatient (AMB) | payer OTHER, SELFPAY ==
[2023-10-23 09:23] VITALS: BP 114/68; PULSE 96; O2SAT 100; BMI 33.8
--- NOTE | 2023-10-23 09:23 | A.OFFVIS_ITS ---
Intake Vital Signs 10/23/23 09:23 Height 5 ft 4 in Weight 197 lb BMI 33.8 BP 114/68 Blood Pressure Location Rt brachial Position Sitting Pulse 96 Pulse Source Pulse Oximeter Pulse Oximetry (%) 100 Oxygen Delivery Method Room Air Intake Visit Reasons: Asthma Communication Center Coordinator Required: No Community Outreach Specialist: Community Outreach Specialist offered & declined Accompanied by: Family/Other Allergies apple [Apple] Allergy (Unknown, Verified 10/23/23 09:30) LIPS SWELL Latex, Natural Rubber Adverse Reaction (Mild, Verified 10/23/23 09:30) TOPICAL IRRITANT Medication List - Last Reconciled 10/23/23 by Gita Grey LPN albuterol sulfate 90 mcg/actuation 2 puffs inhalation Q4-6H PRN benzonatate 200 mg PO .HS budesonide-formoterol 160-4.5 mcg/actuation (Symbicort) 2 puffs inhalation BID doxycycline hyclate 100 mg PO BID sumatriptan succinate (Imitrex) 50 mg PO Q2-4H PRN HPI Asthma HPI Details Magy is a pleasant 43 year old female, never smoker, with underlying asthma, GERD and seizures. She was referred by PCP for pulmonary evaluation. Last year patient evaluated in urgent care multiple times with bronchitic symptoms, treated with zpak as well as prednisone. She was recently started on symbicort 160mcg and prednisone on 10/13 with new diagnosis of asthma and given doxycycline on 10/20 for return of bronchitic symptoms. She feels as though she has been sick almost every month for the last year. She denies any prior diagnosis of asthma. She reports all three children have asthma. She does report mild seasonal allergies and has a dog. No recent allergy testing. She denies occupational exposures. [facility] Medical History (Updated 10/23/23 @ 09:46 by Gris Hunter NP) Dysplasia of cervix, low grade (MELVIN 1) GERD (gastroesophageal reflux disease) Recurrent respiratory infection Lumbar radicular pain Compression fracture of T11 vertebra Insomnia Vitamin D deficiency Pelvic abscess Metrorrhagia Kidney stones Depression Migraines Seizures Surgical History S/P ARVIN (total abdominal hysterectomy) History of bilateral tubal ligation Family History (Updated 10/14/23 @ 17:13 by Anamaris Escobar, RMA) Father Diabetes Hypertension CVD (cardiovascular disease) Stroke Hypercholesterolemia Mother Diabetes Hypertension Hypercholesterolemia Brother Hypertension Maternal Aunt Breast cancer Maternal Grandmother Cervical cancer Paternal Grandmother Breast cancer Paternal Uncle CVD (cardiovascular disease) Social History (Updated 10/23/23 @ 09:32 by Gita Grey LPN) Household Members: Family Housing: Apartment Do you presently have visiting nurse or other home services: No Alcohol intake: current Alcohol intake frequency: holidays/special occasions only Comment: pt sleeping Patient Tobacco Use Status: Never used Tobacco e-Cigarette/Vaping Use: Never Used Second Hand Smoke Exposure: No service: No Current occupational status: employed Sexual orientation: Straight/Heterosexual Gender identity: Female Cognitive needs: No Hearing needs: No Vision needs: Yes Female Reproductive History Menstrual Age of Menarche: 10 Review of Systems Const Denies excessive sweating, Denies headache(s) and Denies night sweats Eyes Denies dry eyes, Denies irritation and Denies itchy eyes ENT Reports Normal hearing present, Denies headache(s), Denies nasal congestion, Denies nasal discharge, Denies post nasal drip and Denies sore throat Card Denies chest pain, Denies chest pain at rest, Denies chest pain with activity, Denies claudication, Denies leg edema, Denies orthopnea and Denies paroxysmal nocturnal dyspnea Resp Denies excessive phlegm production, Denies pain on inspiration and Denies stridor Musc Denies myalgias Neuro Reports Normal hearing present and Denies headache(s) Endo Denies excessive sweating Andrea/Lymph Denies lymphadenopathy Aller/Immun Denies itchy eyes and Denies seasonal rhinorrhea Physical Exam Vital Signs: Last Vital Signs Pulse 96 10/23/23 09:23 BP 114/68 10/23/23 09:23 Pulse Ox 100 10/23/23 09:23 Oxygen Delivery Method Room Air 10/23/23 09:23 BMI result Body Mass Index 33.8 Const General: cooperative, healthy appearing, comfortable, no acute distress, well developed and alert Nutritional Appearance: obese Orientation/consciousness: patient oriented x3 Limitations: no limitations HEENT Head: Yes normal to inspection, Yes normocephalic and Yes atraumatic Ears: hearing grossly normal bilaterally and external ears normal Eyes General: appearance normal, both eyes and all related structures Eyelids: Yes eyelids normal Sclerae: sclerae normal EOM: EOMs intact bilaterally Neck Neck: Yes normal visual inspection and Yes no lymphadenopathy Lymphatic: no lymphadenopathy noted Chest Chest palpation & inspection: normal inspection of the chest Resp Other: diminished lung sounds with post exhalation cough, improved after duoneb Effort & Inspection: normal respiratory effort, able to speak in complete sentences, no audible wheezes, no stridor, not tachypneic, no tripod positioning and no use of accessory muscles Cardio Jugular venous distension: no JVD Rate: regular rate Rhythm: regular rhythm Skin Other: warm, dry General skin exam: no rashes or lesions noted Neuro General: patient oriented x3 Cranial nerves: Yes Normal hearing present Cognition (Neuro): normal cognition Gait exam (Neuro): Normal gait present Extrem General: Yes normal to inspection, Yes capillary refill normal, Yes no clubbing, cyanosis or edema and Yes no pedal edema Psych Appearance: grossly normal and well kempt Speech and movement: Normal speech and movement present and Clear speech present Affect: normal affect Attitude: cooperative Thought process: Normal thought process present Thought content: Normal thought content present Insight: Good insight present (Psych) Judgement: Good judgement present (Psych) Office Procedures Nebulizer Treatment Nebulizer Treatment [id number] RX initial, or Nebulizer Subsequent Treatment Office Meds ipratropium 0.5 mg-albuterol 3 mg (2.5 mg base)/3 mL nebulization soln Performing Provider: Gris Hunter NP Performing Location: [facility] Pulmonology Services-[facility] Administered by: Gita Grey LPN on 10/23/23 09:30 Dose Route Admin Location Dispensed Lot Number Expiration Date [facility] Reading Teacher 3 mL inhalation 3 mL [id number] 06/04/25 17746-356-30 [employer] Assessment & Plan Assessment & Plan (1) Asthma: Code(s): J45.909 - Unspecified asthma, uncomplicated (2) Cough: Code(s): R05.9 - Cough, unspecified (3) Environmental allergies: Code(s): Z91.09 - Other allergy status, other than to drugs and biological substances Plan Magy's symptoms are likely due to underlying asthma with possible allergic component. Will send for PFT and RAST to thoroughly evaluate. Encouraged patient to continue to use symbicort and complete course of doxycyline. Since patient with symptoms x 1 month, will send for CXR today. Patient with persistent dry cough throughout visit and post exhalation cough , improved after duoneb. Will give nebulizer for home use. All questions were answered and patient is in agreement of plan. Will follow up to review results of PFT and response to inhaler, or sooner if needed. Orders: Orders XR chest 2V Today R05.9 - Cough, unspecified Resp Allergy Profile Region I Today Z91.09 - Other allergy status, other than to drugs and biological substances Complete Blood Count Auto Diff Today R05.9 - Cough, unspecified Immunoglobulin E Today Z91.09 - Other allergy status, other than to drugs and biological substances PFT pulmonary function test Today J45.909 - Unspecified asthma, uncomplicated AMB Nebulizer Treatment Today J45.909 - Unspecified asthma, uncomplicated, R05.9 - Cough, unspecified Coding Level of Care Code New Pt Level 4 (00871) Diagnoses Asthma J45.909 Cough R05.9 Environmental allergies Z91.09 CPT Codes Nebulizer Treatment - Nebulizer Treatment, initial or subsequent: 74005- Nebulizer/MDI RX initial, or Nebulizer Subsequent Treatment ([id number])
== END 2023-10-23 10:10 | disposition home or self-care (01) ==
PROVIDERS: PCP Internal Medicine; Referring Provider Internal Medicine; Visit Provider Nurse Practitioner Family
DX: J45.909 Unspecified asthma, uncomplicated (principal); R05.9 Cough, unspecified; Z91.09 Other allergy status, other than to drugs and biological substances
CPT/HCPCS: 99204

== ENCOUNTER → 2023-10-23 09:22 | Outpatient (BNVA) | payer OTHER, SELFPAY | PROVIDERS: PCP Internal Medicine; Referring Provider Internal Medicine; Visit Provider Nurse Practitioner Family | DX: J45.909 Unspecified asthma, uncomplicated (principal); R05.9 Cough, unspecified; Z91.09 Other allergy status, other than to drugs and biological substances | CPT/HCPCS: 94640; 99202 ==

== ENCOUNTER 2023-10-24 12:32 | Outpatient (REF) | payer OTHER, SELFPAY ==
--- NOTE | ~2023-10-24 | XR_ITS ---
EXAMINATION: XR CHEST 2 VIEWS CLINICAL INFORMATION: Cough, unspecified. COMPARISON: Chest radiographs dated 08/09/2023. TECHNIQUE: Frontal and lateral views of the chest were obtained. FINDINGS: The heart, great vessels, pulmonary vasculature and mediastinum are normal. The lungs show no focal infiltrate, effusion or pneumothorax. There is no acute osseous abnormality. There is a mild thoracic levoscoliosis. XR/XR chest 2V IMPRESSION: No active cardiopulmonary disease.
[2023-10-24 12:45] LABS: MANUAL DIFF FLAG NO
[2023-10-24 13:54] LABS: Basophils Absolute Auto 0.1 X10*3/uL (0.0-0.2); Basophils Percent Auto 0.4 % (0-2); Eosinophils Absolute Auto 0.1 X10*3/uL (0.0-0.4); Eosinophils Percent Auto 0.7 % (0-4); Hematocrit 40.7 % (37.0-47.0); Hemoglobin 13.1 g/dl (12.0-16.0); Imm Gran Abs Auto 0.05 X10*3/uL (0.00-0.03); Imm Gran Pct Auto 0.4 % (0.0-0.4); Lymphocytes Absolute Auto 2.1 X10*3/uL (1.2-4.9); Lymphocytes Percent Auto 16.9 % (20-40); Mean Corpuscular HGB Conc 32.2 g/dl (31.0-35.0); Mean Corpuscular Hemoglobin 29.2 pg (27.0-33.0); Mean Corpuscular Volume 90.6 fL (80.0-98.0); Mean Platelet Volume 10.5 fL (9.4-12.3); Monocytes Absolute Auto 0.7 X10*3/uL (0.1-1.2); Monocytes Percent Auto 5.6 % (2-11); Neutrophils Absolute Auto 9.7 x10*3/uL (2.0-8.3); Platelet Count 381 X10*3/uL (160-400); Red Blood Count 4.49 X10*6/uL (4.20-5.50); Red Cell Distribution Width 13.6 % (11.0-16.0); White Blood Count 12.7 X10*3/uL (4.8-10.8)
[2023-10-28 01:28] LABS: Class Alternaria alternata 0; Class Aspergillus fumigatus 0; Class Bermuda Grass 0; Class Birch 3; Class Cat Dander 2; Class Cladosporium herbarum 0; Class Cockroach 0; Class Common Ragweed 3; Class Cottonwood 0; Class Derm. pterony 2; Class Dermatophagoides farinae 3; Class Dog Dander 2; Class Elm 0; Class Maple Box Elder 0; Class Mountain Cedar 0; Class Mouse Urine Protein 0; Class Mugwort 0/1; Class Oak 3; Class Penicillium crysogenum 0; Class Rough Pigweed 0; Class Sheep Sorrel 0; Class Sycamore 0; Class Timothy Grass 0/1; Class Walnut Tree 0/1; Class White Ash 0; Class White Mulberry 0; D001 IgE D pteronyssinus 3.26 kU/L; D002 - IgE D farinae 3.89 kU/L; E001 - IgE Cat Dander 1.07 kU/L; E005 - IgE Dog Dander 1.07 kU/L; E072-IgE Mouse Urine <0.10 kU/L; G002 IgE Bermuda Grass <0.10 kU/L; G006 - IgE Timothy Grass 0.28 kU/L; I006-IgE Cockroach, German <0.10 kU/L; Immunoglobulin E 129 kU/L (<OR=114); M001 IgE Penicillium chrysogen <0.10 kU/L; M002 - IgE Cladosporium herbar <0.10 kU/L; M003 - IgE Aspergillus fumigat <0.10 kU/L; M006 - IgE Alternaria alternat <0.10 kU/L; T001 IgE Maple/Box Elder <0.10 kU/L; T006 - IgE Cedar, Mountain <0.10 kU/L; T007 - IgE Oak, White 5.09 kU/L; T008 IgE Elm, American <0.10 kU/L; T010 - IgE Walnut 0.11 kU/L; T011 - IgE Maple Leaf Sycamore <0.10 kU/L; T014 - IgE Cottonwood <0.10 kU/L; T015 - IgE Ash, White <0.10 kU/L; T070 - IgE White Mulberry <0.10 kU/L; W006 - IgE Mugwort 0.32 kU/L; W014 IgE Pigweed, Common <0.10 kU/L; W018 IgE Sheep Sorrel <0.10 kU/L
== END 2023-10-24 12:33 | disposition home or self-care (01) ==
LOC: HO.XRAY 12:32
PROVIDERS: Visit Provider Nurse Practitioner Family
DX: R05.9 Cough, unspecified (principal); Z91.09 Other allergy status, other than to drugs and biological substances
CPT/HCPCS: 36415; 71046; 82785; 85025; 86003

== ENCOUNTER 2023-10-29 08:44 | Outpatient (REF) | payer OTHER, SELFPAY | END 2023-10-29 08:45 | disposition home or self-care (01) | LOC: HO.MAMMO 08:44 | PROVIDERS: PCP Internal Medicine; Visit Provider Obstetrics & Gynecology | DX: Z12.31 Encounter for screening mammogram for malignant neoplasm of breast (principal) | CPT/HCPCS: 77063; 77067 ==

== ENCOUNTER → 2023-10-29 08:45 | Outpatient (BNV) | payer OTHER, SELFPAY | PROVIDERS: PCP Internal Medicine; Visit Provider Radiology Diagnostic Radiology | DX: Z12.31 Encounter for screening mammogram for malignant neoplasm of breast (principal) | CPT/HCPCS: 77063; 77067 ==

== ENCOUNTER 2023-12-13 10:10 | Outpatient (AMB) | payer OTHER, SELFPAY ==
[2023-12-13 10:13] VITALS: BP 112/78; PULSE 76; O2SAT 98; BMI 34.2
--- NOTE | 2023-12-13 10:13 | A.OFFPC_ITS ---
Vital Signs 12/13/23 10:13 Height 5 ft 4 in Weight 199 lb 6 oz BMI 34.2 BP 112/78 Blood Pressure Location Lt brachial Position Sitting Pulse 76 Pulse Source Pulse Oximeter Pulse Oximetry (%) 98 Oxygen Delivery Method Room Air Intake Visit Reasons: Yearly physical Reversal Print Inspector Required: No Accompanied by: Niece Allergies apple [Apple] Allergy (Unknown, Verified 12/13/23 10:16) LIPS SWELL Latex, Natural Rubber Adverse Reaction (Mild, Verified 12/13/23 10:16) TOPICAL IRRITANT Medication List - Last Reconciled 12/13/23 by Delmy Millan MD albuterol sulfate 90 mcg/actuation 2 puffs inhalation Q4-6H PRN budesonide-formoterol 160-4.5 mcg/actuation (Symbicort) 2 puffs inhalation BID famotidine (Pepcid) 40 mg PO BEDTIME ipratropium-albuterol 0.5 mg-3 mg(2.5 mg base)/3 mL 3 mL inhalation Q6H PRN sumatriptan succinate (Imitrex) 50 mg PO Q2-4H PRN Tobacco use date assessed: 10/21/23 Dental Screening Dental Screen Date: 10/14/23 HPI Yearly physical HPI Details 43-year-old obese female with a history of asthma coming in for physical exam last seen in October 2023. Patient's mammogram is due. Patient follows up with Pulmonary October 2023 nebulizer for home use continuing with the antibiotics. L hip pain months , deny fall ortrauma. no swelling or redness, ? mass last seizure 2021. sob on secondfloor , heart burn. due to macromastia 36 DDD causes pressure on the shoulder and upper back pain , deny infections but is a concern and wants to be referred for breat reduction. [facility] Medical History (Updated 12/13/23 @ 10:46 by Delmy Millan MD) Allergic conjunctivitis COVID-19 Well woman exam Transient visual loss of right eye Hair loss Facial dermatitis Contusion of left arm Elevated LFTs Loose stools Chronic cough Asthmatic bronchitis Cough Mild persistent asthma Dysplasia of cervix, low grade (MELVIN 1) GERD (gastroesophageal reflux disease) Recurrent respiratory infection Lumbar radicular pain Compression fracture of T11 vertebra Insomnia Vitamin D deficiency Pelvic abscess Metrorrhagia Kidney stones Depression Migraines Seizures Surgical History S/P ARVIN (total abdominal hysterectomy) History of bilateral tubal ligation Family History (Updated 12/13/23 @ 10:29 by Delmy Millan MD) Father Diabetes Hypertension CVD (cardiovascular disease) Stroke Hypercholesterolemia Mother Diabetes Hypertension Hypercholesterolemia Brother Hypertension Maternal Aunt Breast cancer Maternal Grandmother Cervical cancer Paternal Grandmother Breast cancer Paternal Uncle CVD (cardiovascular disease) Skin cancer Social History (Updated 12/13/23 @ 10:32 by Delmy Millan MD) Household Members: Family Housing: Apartment Do you presently have visiting nurse or other home services: No Alcohol intake: current Alcohol intake frequency: holidays/special occasions only Comment: 2x a month 5 beer Patient Tobacco Use Status: Never used Tobacco e-Cigarette/Vaping Use: Never Used Second Hand Smoke Exposure: No service: No Current occupational status: employed Sexual orientation: Straight/Heterosexual Gender identity: Female Cognitive needs: No Hearing needs: No Vision needs: Yes Female Reproductive History Menstrual Age of Menarche: 10 Questionnaire Thrive Questionnaire Date Thrive assessed: 10/14/23 OMAR-7 AMB Questionnaire OMAR-7 Date OMAR - 7 assessed: 10/14/23 Source: Developed by Drs. Felix Menon, Shanon Dickey, Christian Mai and colleagues, with an educational tod from [employer]. Review of Systems Const Denies poor appetite and Denies weakness Eyes Denies no additional complaints ENT Reports Normal hearing present, Denies dizziness, Denies nasal congestion, De nies tinnitus and Denies sore throat Card Denies chest pain, Denies syncope, Denies rapid heart rate and Denies dyspnea Resp Denies cough and Denies dyspnea GI Denies change in stool character, Reports constipation, Denies diarrhea, Denies nausea and Denies vomiting Denies urinary frequency, Denies difficulty voiding and Denies dysuria Neuro Reports Normal hearing present, Denies confusion, Denies dizziness, Denies syncope and Denies weakness Psych Denies confusion Physical exam (Primary Care) Vital Signs: Last Vital Signs Pulse 76 12/13/23 10:13 BP 112/78 12/13/23 10:13 Pulse Ox 98 12/13/23 10:13 Oxygen Delivery Method Room Air 12/13/23 10:13 BMI result Body Mass Index 34.2 Tobacco/Smoking Status: Tobacco use Status Tobacco use date assessed 10/21/23 12/13/23 10:17 Patient Tobacco Use Status Never used Tobacco 12/13/23 10:32 e-Cigarette/Vaping Use Never Used 12/13/23 10:32 Thrive Assessment: Date of Thrive Assessment Date Thrive assessed 10/14/23 12/13/23 10:17 Const General: No confusion Orientation/consciousness: No confusion HENMT Head: Yes normocephalic Ears: external ears normal and TM's normal bilaterally Face and sinus: Yes normal facial exam Mouth: moist mucous membranes Throat: Yes tonsils normal Eyes Conjunctivae: conjunctivae normal Pupils: Equal, round and reactive pupils present and Pupil accommodation reflex normal Direct Ophthalmoscopy: normal light reflex Neck Neck: No lymphadenopathy Thyroid: Thyroid normal Chest Chest palpation & inspection: normal inspection of the chest Resp Effort & Inspection: normal respiratory effort and no audible wheezes Auscultation: clear to auscultation bilaterally, no crackles, no wheezes and lung sounds not diminished Cardio Rate: regular rate Rhythm: regular rhythm Peripheral pulses: radial pulses present and dorsalis pedis present GI Palpation (GI): no masses Auscultation: normal bowel sounds and normoactive bowel sounds Rectal Exam - Female: deferred Skin General skin exam: no rashes or lesions noted Rashes: no rashes Neuro General: No confusion Cranial nerves: Yes Equal, round and reactive pupils present and Yes Normal hearing present Cognition (Neuro): normal cognition Gait exam (Neuro): Normal gait present Motor exam (neuro): 5/5 motor strength present throughout Deep tendon reflexes (DTR's): Right brachioradialis reflex intensity grade: 2+, Left brachioradialis reflex intensity grade: 2+, Right patellar reflex intensity grade: 2+ and Left patellar reflex intensity grade: 2+ Extrem General: No edema Immunizations pneumoc 20-cesilia conj-dip cr(PF) 0.5 mL IM syringe Performing Provider: Delmy Millan MD Performing Location: [facility] Administered by: JIMENA Gamble on 12/13/23 10:51 2 Dose Route Admin Location Dispensed Lot Number Expiration Date NDC Bead Maker 0.5 mL IM Right Deltoid 0.5 mL [id number] 12/03/24 9526-7348-08 [employer] VIS Given Date VIS Provided VIS Publication Date 12/13/23 Single Vaccine 21 Eligibility Eligibility Date Funding Source Not [facility] Eligible 12/13/23 Private Assessment and Plan Assessment & Plan (1) Annual physical exam: Code(s): Z00.00 - Encounter for general adult medical examination without abnormal findings (2) Asthma: Code(s): J45.909 - Unspecified asthma, uncomplicated Plan: Patient has been referred to the Pulmonary and workup was done presently on albuterol with home nebulizer Symbicort (3) Colon cancer screening: Code(s): Z12.11 - Encounter for screening for malignant neoplasm of colon Plan: Patient is reminded about colonoscopy (4) Hypercholesterolemia: Code(s): E78.00 - Pure hypercholesterolemia, unspecified Plan: Avoid fried foods, chicken skin, eggs, butter margarine, pastries and meat. Be it pork or beef they have a lot of cholesterol LDL goal of less than 130 and triglyceride of less than 150. (5) Obesity with body mass index (BMI) of 30.0 to 39.9: Code(s): E66.9 - Obesity, unspecified Plan: Diet and exercise (6) Seizures: Comment: Partial complex Code(s): R56.9 - Unspecified convulsions Plan: Stable (7) GERD (gastroesophageal reflux disease): Code(s): K21.9 - Gastro-esophageal reflux disease without esophagitis (8) Trochanteric bursitis, left hip: Code(s): M70.62 - Trochanteric bursitis, left hip Orders: Orders [place] upper GI series Today K21.9 - Gastro-esophageal reflux disease without esophagitis, R13.10 - Dysphagia, unspecified Comprehensive Met. Panel Today K21.9 - Gastro-esophageal reflux disease without esophagitis Free T4 (Free Thyroxine) Today K21.9 - Gastro-esophageal reflux disease without esophagitis Lipid Panel Today E78.00 - Pure hypercholesterolemia, unspecified, K21.9 - Gastro-esophageal reflux disease without esophagitis Complete Blood Count Auto Diff Today K21.9 - Gastro-esophageal reflux disease without esophagitis Thyroid Stimulating Hormone Today K21.9 - Gastro-esophageal reflux disease without esophagitis Vitamin B12 and Folate Today K21.9 - Gastro-esophageal reflux disease without esophagitis Vitamin D 25-OH Total Today K21.9 - Gastro-esophageal reflux disease without esophagitis UA w Microscopic Today K21.9 - Gastro-esophageal reflux disease without esophagitis XR hip LT min 2V Today M70.62 - Trochanteric bursitis, left hip Pneumococcal 20 Immunization Today Z23 - Encounter for immunization Referrals Gastroenterology Referral Z12.11 - Encounter for screening for malignant neoplasm of colon Plastic Surgery Referral N62 - Hypertrophy of breast Medications: New famotidine (Pepcid) 40 mg PO BEDTIME 30 tabs 1RF K21.9 - Gastro-esophageal reflux disease without esophagitis meloxicam 15 mg PO DAILY PRN 30 tabs 0RF pain M70.62 - Trochanteric bursitis, left hip Coding Level of Care Code Est Pt Prev Care 40-64y(26035) Diagnoses Annual physical exam Z00.00 Asthma J45.909 Colon cancer screening Z12.11 Hypercholesterolemia E78.00 Obesity with body mass index (BMI) of 30.0 to 39.9 E66.9 Seizures R56.9 GERD (gastroesophageal reflux disease) K21.9 Trochanteric bursitis, left hip M70.62
== END 2023-12-13 10:57 | disposition home or self-care (01) ==
PROVIDERS: PCP Internal Medicine; Visit Provider Internal Medicine
DX: Z00.00 Encounter for general adult medical examination without abnormal findings (principal); R56.9 Unspecified convulsions; J45.909 Unspecified asthma, uncomplicated; Z23 Encounter for immunization; Z12.11 Encounter for screening for malignant neoplasm of colon; E78.00 Pure hypercholesterolemia, unspecified; E66.9 Obesity, unspecified; K21.9 Gastro-esophageal reflux disease without esophagitis; M70.62 Trochanteric bursitis, left hip
CPT/HCPCS: 90471; 90677; 99396

== ENCOUNTER 2023-12-16 08:42 | Outpatient (REF) | payer OTHER, SELFPAY ==
[2023-12-16 10:48] VITALS: PULSE 78; RESP 16; O2SAT 100
--- NOTE | 2023-12-16 15:59 | PFT_ITS ---
Indication: Asthma Spirometry [FEV1 to FVC 83%; FEV1 2.3 L; FVC 2.75 L. No significant response to bronchodilators noted. Maximum voluntary ventilation 82% predicted] Lung Volumes [Total lung capacity 71% predicted; expiratory reserve volume 19% predicted] Diffusion Capacity [DLCO 102% predicted] Comparisons [None] Interpretation [No obstructive ventilatory defects. No significant response to bronchodilators noted. Normal maximum voluntary ventilation. The patient does have a restrictive ventilatory defect consistent with mild restrictive lung disease. In part due to elevated BMI although interstitial lung conditions and/or neuromuscular conditions can not be ruled out. Diffusion capacity is within normal limits. Clinical correlation warranted. MTDD
== END 2023-12-16 08:43 | disposition home or self-care (01) ==
LOC: HO.RESP 08:42
PROVIDERS: PCP Internal Medicine; Visit Provider Nurse Practitioner Family
DX: J45.909 Unspecified asthma, uncomplicated (principal)
CPT/HCPCS: 94010; 94640; 94727; 94729

== ENCOUNTER → 2023-12-16 15:59 | Outpatient (BNV) | payer OTHER, SELFPAY | PROVIDERS: PCP Internal Medicine; Visit Provider Hospitalist | DX: J45.909 Unspecified asthma, uncomplicated (principal) | CPT/HCPCS: 94060; 94727; 94729 ==

== ENCOUNTER 2023-12-18 07:51 | Outpatient (REF) | payer OTHER, SELFPAY ==
[2023-12-18 08:24] LABS: MANUAL DIFF FLAG NO
[2023-12-18 09:00] LABS: Basophils Percent Auto 0.4 % (0-2); Eosinophils Absolute Auto 0.2 X10*3/uL (0.0-0.4); Eosinophils Percent Auto 2.6 % (0-4); Hematocrit 36.9 % (37.0-47.0); Hemoglobin 11.9 g/dl (12.0-16.0); Imm Gran Abs Auto 0.03 X10*3/uL (0.00-0.03); Imm Gran Pct Auto 0.4 % (0.0-0.4); Lymphocytes Percent Auto 23.8 % (20-40); Mean Corpuscular HGB Conc 32.2 g/dl (31.0-35.0); Mean Corpuscular Hemoglobin 29.6 pg (27.0-33.0); Mean Corpuscular Volume 91.8 fL (80.0-98.0); Mean Platelet Volume 9.8 fL (9.4-12.3); Monocytes Absolute Auto 0.5 X10*3/uL (0.1-1.2); Monocytes Percent Auto 6.3 % (2-11); Neutrophils Absolute Auto 5.7 x10*3/uL (2.0-8.3); Neutrophils Percent Auto 66.5 % (45-73); Platelet Count 381 X10*3/uL (160-400); Red Blood Count 4.02 X10*6/uL (4.20-5.50); Red Cell Distribution Width 13.2 % (11.0-16.0); White Blood Count 8.5 X10*3/uL (4.8-10.8)
[2023-12-18 09:04] LABS: Appearance Urine Cloudy; Color Urine Yellow; Glucose Urine UA Negative (Negative); Leukocyte Esterase Urine Negative (Negative); Nitrite Urine Negative (Negative); PH 5.5 (5.0-9.0); UMIC TRIGGER UA YES; Urine Blood Small (1+) (Negative); Urine Ketones Negative (Negative); Urine Protein Negative (Neg-Trace)
[2023-12-18 09:08] LABS: Bacteria Urine Trace (None Seen); Hyaline Casts Urine 0-2 /LPF (0-2); WBC Urine 0-5 /HPF (0-5)
[2023-12-18 09:50] LABS: Alanine Aminotransferase 21 U/L (0-31); Albumin Level 3.7 g/dL (3.5-5.0); Alkaline Phosphatase 66 U/L (39-117); Anion Gap 10 (12-20); Aspartate Amino Transferase 15 U/L (5-31); Bilirubin Total 0.4 mg/dL (0.0-1.0); Blood Urea Nitrogen 14 mg/dL (9-16); Calcium 8.7 mg/dL (8.4-10.2); Carbon Dioxide 26 mmol/L (22-29); Chloride 106 mmol/L (96-108); Cholesterol 186 mg/dL (<200); Estimated Glomerular Filt Rate > 60; Glucose Random 89 mg/dL (60-115); HDL Cholesterol 44 mg/dL (>40); LDL Cholesterol Calculated 121 mg/dL (<100); Potassium 4.2 mmol/L (3.3-5.1); Sodium 138 mmol/L (135-145); Total Protein 7.1 g/dL (6.5-8.0); Triglycerides 108 mg/dL (<150)
[2023-12-18 10:09] LABS: Free T4 (Free Thyroxine) 0.83 ng/dL (0.71-1.85); Thyroid Stimulating Hormone 1.52 uIU/mL (0.32-4.0); Vitamin D 25-OH Total 20.2 ng/mL (>30)
[2023-12-18 11:11] LABS: Vitamin B12 596 pg/mL (200-900)
== END 2023-12-18 07:52 | disposition home or self-care (01) ==
LOC: HO.LAB 07:51
PROVIDERS: PCP Internal Medicine; Visit Provider Internal Medicine
DX: E78.00 Pure hypercholesterolemia, unspecified (principal); K21.9 Gastro-esophageal reflux disease without esophagitis
CPT/HCPCS: 36415; 80053; 80061; 81001; 82306; 82607; 82746; 84439; 84443; 85025

== ENCOUNTER 2023-12-18 10:41 | Outpatient (AMB) | payer OTHER, SELFPAY ==
--- NOTE | 2023-12-18 10:42 | A.OFFPC_ITS ---
Intake Visit Reasons: Reaction to PCV20 Allergies apple [Apple] Allergy (Unknown, Verified 12/18/23 10:42) LIPS SWELL Latex, Natural Rubber Adverse Reaction (Mild, Verified 12/18/23 10:42) TOPICAL IRRITANT Tobacco use date assessed: 10/21/23 Dental Screening Dental Screen Date: 10/14/23 HPI Reaction to PCV20 2 HPI0 Details 43-year-old obese female with a history of hypercholesterolemia seizures GERD and asthma last seen in December 18, 2023. Patient had the pneumonia vaccine done complains of having swelling of the arm. [facility] Medical History (Updated 12/18/23 @ 11:24 by Delmy Millan MD) Allergic conjunctivitis COVID-19 Well woman exam Transient visual loss of right eye Hair loss Facial dermatitis Contusion of left arm Elevated LFTs Loose stools Chronic cough Asthmatic bronchitis Cough Mild persistent asthma Dysplasia of cervix, low grade (MELVIN 1) GERD (gastroesophageal reflux disease) Recurrent respiratory infection Lumbar radicular pain Compression fracture of T11 vertebra Insomnia Vitamin D deficiency Pelvic abscess Metrorrhagia Kidney stones Depression Migraines Seizures Surgical History S/P ARVIN (total abdominal hysterectomy) History of bilateral tubal ligation Family History (Updated 12/13/23 @ 10:29 by Delmy Millan MD) Father Diabetes Hypertension CVD (cardiovascular disease) Stroke Hypercholesterolemia Mother Diabetes Hypertension Hypercholesterolemia Brother Hypertension Maternal Aunt Breast cancer Maternal Grandmother Cervical cancer Paternal Grandmother Breast cancer Paternal Uncle CVD (cardiovascular disease) Skin cancer Social History (Updated 12/13/23 @ 10:32 by Delmy Millan MD) Household Members: Family Housing: Apartment Do you presently have visiting nurse or other home services: No Alcohol intake: current Alcohol intake frequency: holidays/special occasions only Comment: 2x a month 5 beer Patient Tobacco Use Status: Never used Tobacco e-Cigarette/Vaping Use: Never Used Second Hand Smoke Exposure: No service: No Current occupational status: employed Sexual orientation: Straight/Heterosexual Gender identity: Female Cognitive needs: No Hearing needs: No Vision needs: Yes Female Reproductive History Menstrual Age of Menarche: 10 Questionnaire PHQ-9 Over the last 2 weeks, how often have you been bothered by any of the following problems? 1. Little interest or pleasure in doing things: not at all 2. Feeling down, depressed, or hopeless: not at all 3. Trouble falling or staying asleep, or sleeping too much: not at all 4. Feeling tired or having little energy: not at all 5. Poor appetite or overeating: not at all 6. Feeling bad about yourself - or that you are a failure or have let yourself or your family down: not at all 7. Trouble concentrating on things, such as reading the newspaper or watching television: not at all 8. Moving or speaking so slowly that other people could have noticed. Or the opposite - being so fidgety or restless that you have been moving around a lot more than usual: not at all 9. Thoughts that you would be better off or of hurting yourself in some way: not at all Total score: 0 Depression Screening Interpretation: Negative Depression Screening Done: Yes Source: Developed by Drs. Felix Menon, Shanon Dickey, Christian Mai and colleagues, with an educational tod from [employer]. Thrive Questionnaire Date Thrive assessed: 10/14/23 AUDIT C Alcohol Use Questionnaire (AUDIT-C) 1. How often do you have a drink containing alcohol?: Monthly or less 2. How many drinks containing alcohol do you have on a typical day when you are drinking?: 1 or 2 3. How often do you have six or more drinks on one occasion?: Never Total Score: 1 OMAR-7 AMB Questionnaire OMAR-7 Date OMAR - 7 assessed: 10/14/23 Source: Developed by Drs. Felix Menon, Shanon Dickey, Christian Mai and colleagues, with an educational tod from [employer]. Physical exam (Primary Care) Tobacco/Smoking Status: Tobacco use Status Tobacco use date assessed 10/21/23 12/18/23 10:43 Patient Tobacco Use Status Never used Tobacco 12/18/23 10:43 e-Cigarette/Vaping Use Never Used 12/18/23 10:43 PHQ-9: PHQ-9 Score PHQ-9: Total score 0 12/18/23 10:43 Depression Screening Interpretation: Negative Thrive Assessment: Date of Thrive Assessment Date Thrive assessed 10/14/23 12/18/23 10:43 Extrem Shoulder/upper arm images: 2 1. Noted swelling on the right arm with linear swelling going to the anterior portion of the right arm. 2. 3. Telehealth Telehealth Location of provider rendering services: practice address Location of patient: address on file Patient Identification confirmed using: Name, : Yes Telehealth method: video (iphone) Patient verbally consented to treatment: Yes Patient verbally consented to billing insurance company: Yes Patient informed of any privacy concerns related to visit: Yes Assessment and Plan Assessment & Plan (1) Adverse reaction to pneumococcal vaccine: Code(s): T50.A95A - Adverse effect of other bacterial vaccines, initial encounter Plan: advisied benadryl in place Ruth for her right arm swelling. Antibiotics sent in due to the red/inflamed area. Discussed about concerns about infection. Medications: New 2 amoxicillin-pot clavulanate 500-125 mg (Augmentin) 1 tab PO BID 14 tabs 0RF T50.A95A - Adverse effect of other bacterial vaccines, initial encounter Coding Level of Care Code Tele Est Pt Level 3 (74961) Diagnoses Adverse reaction to pneumococcal vaccine T50.A95A
== END 2023-12-18 14:49 | disposition home or self-care (01) ==
LOC: HO.HMGH 10:41
PROVIDERS: PCP Internal Medicine; Visit Provider Internal Medicine
DX: T50.A95A Adverse effect of other bacterial vaccines, initial encounter (principal)
CPT/HCPCS: 99213

== ENCOUNTER 2023-12-25 10:45 | Outpatient (AMB) | payer OTHER, SELFPAY ==
[2023-12-25 10:48] VITALS: BP 110/68; PULSE 66; O2SAT 100; BMI 33.7
--- NOTE | 2023-12-25 10:48 | A.OFFVIS_ITS ---
Vital Signs 12/25/23 10:48 Height 5 ft 4 in Weight 196 lb 8 oz BMI 33.7 BP 110/68 Blood Pressure Location Rt brachial Position Sitting Pulse 66 Pulse Source Pulse Oximeter Pulse Oximetry (%) 100 Oxygen Delivery Method Room Air Intake Visit Reasons: Asthma Allergies apple [Apple] Allergy (Unknown, Verified 12/25/23 10:50) LIPS SWELL Latex, Natural Rubber Adverse Reaction (Mild, Verified 12/25/23 10:50) TOPICAL IRRITANT HPI HPI Asthma: Details: Magy is a pleasant 43 year old female, never smoker, with underlying asthma, GERD and seizures. The last visit patient was recently started on Symbicort 160mcg and reports good control of symptoms. Today denies any cough, wheezing, dyspnea, or chest tightness. She does report asthma has been triggered by allergies recently, using Ruth with suboptimal effect. Today she presents to review RAST, PFT and chest x-ray results. [facility] Medical History (Updated 12/27/23 @ 09:34 by Gris Hunter NP) Allergic conjunctivitis COVID-19 Well woman exam Transient visual loss of right eye Hair loss Facial dermatitis Contusion of left arm Elevated LFTs Loose stools Chronic cough Asthmatic bronchitis Cough Mild persistent asthma Dysplasia of cervix, low grade (MELVIN 1) GERD (gastroesophageal reflux disease) Recurrent respiratory infection Lumbar radicular pain Compression fracture of T11 vertebra Insomnia Vitamin D deficiency Pelvic abscess Metrorrhagia Kidney stones Depression Migraines Seizures Surgical History S/P ARVIN (total abdominal hysterectomy) History of bilateral tubal ligation Family History (Updated 12/13/23 @ 10:29 by Delmy Millan MD) Father Diabetes Hypertension CVD (cardiovascular disease) Stroke Hypercholesterolemia Mother Diabetes Hypertension Hypercholesterolemia Brother Hypertension Maternal Aunt Breast cancer Maternal Grandmother Cervical cancer Paternal Grandmother Breast cancer Paternal Uncle CVD (cardiovascular disease) Skin cancer Social History Household Members: Family Housing: Apartment Do you presently have visiting nurse or other home services: No Alcohol intake: current Alcohol intake frequency: holidays/special occasions only Comment: 2x a month 5 beer Patient Tobacco Use Status: Never used Tobacco e-Cigarette/Vaping Use: Never Used Second Hand Smoke Exposure: No service: No Current occupational status: employed Sexual orientation: Straight/Heterosexual Gender identity: Female Cognitive needs: No Hearing needs: No Vision needs: Yes Female Reproductive History Menstrual Age of Menarche: 10 Review of Systems Const Denies chills, Denies excessive sweating, Denies fever(s), Denies headache(s) and Denies night sweats Eyes Denies dry eyes, Denies irritation and Denies itchy eyes ENT Reports Normal hearing present, Denies headache(s), Denies nasal congestion, Denies nasal discharge, Denies post nasal drip and Denies sore throat Card Denies chest pain, Denies chest pain at rest, Denies chest pain with activity, Denies claudication, Denies leg edema, Denies dyspnea, Denies dyspnea on exertion, Denies orthopnea and Denies paroxysmal nocturnal dyspnea Resp Denies chest congestion, Denies cough, Denies excessive phlegm production, Denies pain on inspiration, Denies pain with cough, Denies dyspnea, Denies dyspnea on exertion, Denies stridor and Denies wheezing Musc Denies myalgias Neuro Reports Normal hearing present and Denies headache(s) Endo Denies excessive sweating Andrea/Lymph Denies lymphadenopathy Aller/Immun Denies itchy eyes, Denies seasonal rhinorrhea and Denies wheezing Physical Exam Vital Signs: Last Vital Signs Pulse 66 12/25/23 10:48 BP 110/68 12/25/23 10:48 Pulse Ox 100 12/25/23 10:48 Oxygen Delivery Method Room Air 12/25/23 10:48 BMI result Body Mass Index 33.7 Const General: cooperative, healthy appearing, comfortable, no acute distress, well developed and alert Nutritional Appearance: obese Orientation/consciousness: patient oriented x3 Limitations: no limitations HEENT Head: Yes normal to inspection, Yes normocephalic and Yes atraumatic Ears: hearing grossly normal bilaterally and external ears normal Eyes General: appearance normal, both eyes and all related structures Eyelids: Yes eyelids normal Sclerae: sclerae normal EOM: EOMs intact bilaterally Neck Neck: Yes normal visual inspection and Yes no lymphadenopathy Lymphatic: no lymphadenopathy noted Chest Chest palpation & inspection: normal inspection of the chest Resp Effort & Inspection: normal respiratory effort, able to speak in complete sentences, no audible wheezes, no cough, no stridor, not tachypneic, no tripod positioning and no use of accessory muscles Auscultation: clear to auscultation bilaterally Cardio Jugular venous distension: no JVD Rate: regular rate Rhythm: regular rhythm Skin Other: warm, dry General skin exam: no rashes or lesions noted Neuro General: patient oriented x3 Cranial nerves: Yes Normal hearing present Cognition (Neuro): normal cognition Gait exam (Neuro): Normal gait present Extrem General: Yes normal to inspection, Yes capillary refill normal, Yes no clubbing, cyanosis or edema and Yes no pedal edema Psych Appearance: grossly normal and well kempt Speech and movement: Normal speech and movement present and Clear speech present Affect: normal affect Attitude: cooperative Thought process: Normal thought process present Thought content: Normal thought content present Insight: Good insight present (Psych) Judgement: Good judgement present (Psych) Results Reviewed Results Reviewed: [address] [address] XRay Report Signed Patient: Magy Sims MR#: [id number] : 1980 Acct:[id number] Age/Sex: 43 / F ADM Date: 10/24/23 Loc: .[facility] Attending Dr: Gris Hunter NP Ordering Physician: Gris Hunter NP Date of Service: 10/24/23 Procedure(s): XR chest 2V Accession Number(s): [id number] cc: Gris Hunter NP~ EXAMINATION: XR CHEST 2 VIEWS CLINICAL INFORMATION: Cough, unspecified. COMPARISON: Chest radiographs dated 08/09/2023. TECHNIQUE: Frontal and lateral views of the chest were obtained. FINDINGS: The heart, great vessels, pulmonary vasculature and mediastinum are normal. The lungs show no focal infiltrate, effusion or pneumothorax. There is no acute osseous abnormality. There is a mild thoracic levoscoliosis. XR/XR chest 2V IMPRESSION: No active cardiopulmonary disease. Dictated By: Henrry Almazan MD Signed By: <Electronically signed by Henrry Almazan MD in OV> 10/28/23 1708 DD/ 1408 TD/TT: News Gathering Technician: GLENN Assessment & Plan Assessment & Plan (1) Asthma: Code(s): J45.909 - Unspecified asthma, uncomplicated Category: Medical (2) Environmental allergies: Code(s): Z91.09 - Other allergy status, other than to drugs and biological substances Category: Medical Plan Reviewed RAST which revealed multiple seasonal and perennial allergies. Given that patient reports allergic triggers, will add Singulair and advised to continue Symbicort. Review chest x-ray which was unremarkable. Reviewed PFT which revealed no obstructive ventilatory defects. No significant response to bronchodilators noted. Normal maximum voluntary ventilation. The patient does have a restrictive ventilatory defect consistent with mild restrictive lung disease. In part due to elevated BMI although interstitial lung conditions and/or neuromuscular conditions can not be ruled out. Diffusion capacity is within normal limits. Will send for chest CT to assess for interstitial lung disease or other causes of restrictive defect. All questions were answered and patient is in agreement of plan. Will follow-up to review chest CT and response to Singulair, or sooner if needed. Orders: Orders CT chest wo IV con Today R94.2 - Abnormal results of pulmonary function studies Medications: New montelukast (Singulair) 10 mg PO BEDTIME 30 tabs 5RF Coding Level of Care Code Est Pt Level 4 (92114) Diagnoses Asthma J45.909 Environmental allergies Z91.09
== END 2023-12-25 11:34 | disposition home or self-care (01) ==
PROVIDERS: PCP Internal Medicine; Visit Provider Nurse Practitioner Family
DX: J45.909 Unspecified asthma, uncomplicated (principal); Z91.09 Other allergy status, other than to drugs and biological substances
CPT/HCPCS: 99214

== ENCOUNTER → 2023-12-25 10:45 | Outpatient (BNVA) | payer OTHER, SELFPAY | PROVIDERS: PCP Internal Medicine; Visit Provider Nurse Practitioner Family | DX: J45.909 Unspecified asthma, uncomplicated (principal); Z91.09 Other allergy status, other than to drugs and biological substances | CPT/HCPCS: 99212 ==

== ENCOUNTER 2024-01-13 16:52 | Outpatient (AMB) | payer OTHER, SELFPAY ==
[2024-01-13 16:53] VITALS: BP 112/78; PULSE 82; O2SAT 98; BMI 33.5
--- NOTE | 2024-01-13 16:53 | MHC.PC.OV ---
Vital Signs 01/13/24 16:53 Height 5 ft 4 in Weight 195 lb BMI 33.5 BP 112/78 Blood Pressure Location Lt brachial Position Sitting Pulse 82 Pulse Source Pulse Oximeter Pulse Oximetry (%) 98 Oxygen Delivery Method Room Air Intake Visit Reasons: 3 month f/u Client Service And Consulting Manager Required: No Allergies apple [Apple] Allergy (Unknown, Verified 01/13/24 16:53) LIPS SWELL Latex, Natural Rubber Adverse Reaction (Mild, Verified 01/13/24 16:53) TOPICAL IRRITANT Medication List - Last Reconciled 01/13/24 by Delmy Millan MD albuterol sulfate 90 mcg/actuation 2 puffs inhalation Q4-6H PRN budesonide-formoterol 160-4.5 mcg/actuation (Symbicort) 2 puffs inhalation BID famotidine (Pepcid) 40 mg PO BEDTIME ipratropium-albuterol 0.5 mg-3 mg(2.5 mg base)/3 mL 3 mL inhalation Q6H PRN meloxicam 15 mg PO DAILY PRN montelukast (Singulair) 10 mg PO BEDTIME sumatriptan succinate (Imitrex) 50 mg PO Q2-4H PRN Tobacco use date assessed: 01/13/24 Dental Screening Dental Screen Date: 10/14/23 HPI 3 month f/u HPI Details 43-year-old female obese with a history of seizures hypercholesterolemia GERD asthma coming in for follow-up. Last seen for allergic reaction to pneumococcal vaccine in 12/23/2023. Review of the notes patient has seen Pulmonary for the asthma and has had skin testing add Singulair continue with Symbicort PFT revealed no obstructive ventilatory defects but has restrictive lung disease discussed about BMI and interstitial lung disease advised to get CT scan of the chest. [facility] Medical History (Updated 01/13/24 @ 17:40 by Delmy Millan MD) Allergic conjunctivitis COVID-19 Well woman exam Transient visual loss of right eye Hair loss Facial dermatitis Contusion of left arm Elevated LFTs Loose stools Chronic cough Asthmatic bronchitis Cough Mild persistent asthma Dysplasia of cervix, low grade (MELVIN 1) GERD (gastroesophageal reflux disease) Recurrent respiratory infection Lumbar radicular pain Compression fracture of T11 vertebra Insomnia Vitamin D deficiency Pelvic abscess Metrorrhagia Kidney stones Depression Migraines Seizures Surgical History S/P ARVIN (total abdominal hysterectomy) History of bilateral tubal ligation Family History (Updated 12/13/23 @ 10:29 by Delmy Millan MD) Father Diabetes Hypertension CVD (cardiovascular disease) Stroke Hypercholesterolemia Mother Diabetes Hypertension Hypercholesterolemia Brother Hypertension Maternal Aunt Breast cancer Maternal Grandmother Cervical cancer Paternal Grandmother Breast cancer Paternal Uncle CVD (cardiovascular disease) Skin cancer Social History Household Members: Family Housing: Apartment Do you presently have visiting nurse or other home services: No Alcohol intake: current Alcohol intake frequency: holidays/special occasions only Comment: 2x a month 5 beer Patient Tobacco Use Status: Never used Tobacco e-Cigarette/Vaping Use: Never Used Second Hand Smoke Exposure: No service: No Current occupational status: employed Sexual orientation: Straight/Heterosexual Gender identity: Female Cognitive needs: No Hearing needs: No Vision needs: Yes Female Reproductive History Menstrual Age of Menarche: 10 Questionnaire Thrive Questionnaire Date Thrive assessed: 10/14/23 AUDIT C Alcohol Use Questionnaire (AUDIT-C) 1. How often do you have a drink containing alcohol?: Monthly or less 2. How many drinks containing alcohol do you have on a typical day when you are drinking?: 1 or 2 3. How often do you have six or more drinks on one occasion?: Never Total Score: 1 OMAR-7 AMB Questionnaire OMAR-7 Date OMAR - 7 assessed: 10/14/23 Source: Developed by Drs. Felix Menon, Shanon Dickey, Christian Mai and colleagues, with an educational tod from [employer]. Physical exam (Primary Care) Vital Signs: Last Vital Signs Pulse 82 01/13/24 16:53 BP 112/78 01/13/24 16:53 Pulse Ox 98 01/13/24 16:53 Oxygen Delivery Method Room Air 01/13/24 16:53 BMI result Body Mass Index 33.5 Tobacco/Smoking Status: Tobacco use Status Tobacco use date assessed 01/13/24 01/13/24 16:58 Patient Tobacco Use Status Never used Tobacco 01/13/24 16:58 e-Cigarette/Vaping Use Never Used 01/13/24 16:58 Thrive Assessment: Date of Thrive Assessment Date Thrive assessed 10/14/23 01/13/24 16:58 Const General: alert; No acute distress Eyes Conjunctivae: conjunctivae normal Resp Auscultation: clear to auscultation bilaterally Cardio Rate: regular rate Rhythm: regular rhythm GI Inspection: Yes normal to inspection Extrem General: Yes normal to inspection and No edema Assessment and Plan Assessment & Plan (1) Restrictive lung disease: Code(s): J98.4 - Other disorders of lung Plan: CT scan chest pending patient is on inhalers and does need refill which does help. (2) Obesity with body mass index (BMI) of 30.0 to 39.9: Code(s): E66.9 - Obesity, unspecified Plan: Diet and exercise (3) GERD (gastroesophageal reflux disease): Code(s): K21.9 - Gastro-esophageal reflux disease without esophagitis Plan: Avoid the foods that causes that usually spicy foods, tomato products, juices, coffee, soda and foods that your sensitive to. After eating do not lie down, allow 3-4 hours before in lie down. And keep the head of bed above 30 degrees to avoid the acid from going up. On famotidine Medications: Refilled albuterol sulfate 90 mcg/actuation 2 puffs inhalation Q4-6H PRN 8.5 grams 0RF shortness of breath or wheezing J45.909 - Unspecified asthma, uncomplicated Coding Level of Care Code Est Pt Level 4 (02900) Diagnoses Restrictive lung disease J98.4 Obesity with body mass index (BMI) of 30.0 to 39.9 E66.9 GERD (gastroesophageal reflux disease) K21.9
== END 2024-01-13 18:09 | disposition home or self-care (01) ==
PROVIDERS: PCP Internal Medicine; Visit Provider Internal Medicine
DX: J98.4 Other disorders of lung (principal); E66.9 Obesity, unspecified; K21.9 Gastro-esophageal reflux disease without esophagitis; Z68.33 Body mass index [BMI] 33.0-33.9, adult
CPT/HCPCS: 99214

== ENCOUNTER 2024-02-18 09:25 | Outpatient (REF) | payer OTHER, SELFPAY ==
--- NOTE | ~2024-02-18 | FL_ITS ---
EXAMINATION: XR FLUOROSCOPY UPPER GI WITH AIR CLINICAL INFORMATION: Dysphagia COMPARISON: None TECHNIQUE: Fluoroscopic air contrast upper GI examination was performed utilizing standard techniques with thin and thick barium and effervescent granules. Numerous spot images were obtained. FINDINGS: Lateral cine images of the oropharynx and hypopharynx demonstrate a normal swallow mechanism with normal epiglottic inversion and soft palate elevation. No tracheal penetration, glottic or subglottic aspiration identified. No nasopharyngeal reflux present. Hypopharyngeal structures appear normal without evidence of mass or diverticulum. There was no significant cricopharyngeal achalasia. Dual and single contrast images of the esophagus demonstrate normal caliber, contour, and mucosal pattern. No evidence of stricture, mass, or ulcerations identified. Esophageal peristalsis was mildly disorganized. A very small type I hiatal hernia is present. No significant gastroesophageal reflux was seen during the course of the examination and on reflux views. Dual contrast and single contrast images of the stomach demonstrated normal contour and mucosal pattern without evidence of mass, ulceration, or other abnormality. Contrast freely passed into the gastric antrum and duodenal bulb without delay. Single and air-contrast images of the duodenal bulb demonstrate no abnormality. The duodenal sweep has a normal appearance, course, and mucosal fold appearance. The imaged proximal jejunum has a normal fold pattern and caliber. FLUOROSCOPY TIME: 3 minutes 48 seconds Number of Spot Images: 9 Number of Cine: 16 DOSE AREA PRODUCT: 2473 uGy-m2 (microgray-meter squared) FL/FL upper GI series IMPRESSION: 1. Mildly disorganized esophageal peristalsis. 2. Very small type I hiatal hernia This procedure was performed by Johny Enamorado PA-C, and supervised by Dr. Serrano
== END 2024-02-18 09:26 | disposition home or self-care (01) ==
LOC: HO.XRAY 09:25
PROVIDERS: PCP Internal Medicine; Visit Provider Internal Medicine
DX: R13.10 Dysphagia, unspecified (principal); K21.9 Gastro-esophageal reflux disease without esophagitis
CPT/HCPCS: 74240

== ENCOUNTER → 2024-02-18 09:27 | Outpatient (BNV) | payer OTHER, SELFPAY | PROVIDERS: PCP Internal Medicine; Visit Provider Physician Assistant Surgical | DX: R10.10 Upper abdominal pain, unspecified (principal) | CPT/HCPCS: 74246 ==

== ENCOUNTER 2024-04-01 11:24 | Outpatient (AMB) | payer OTHER, SELFPAY ==
[2024-04-01 11:44] VITALS: BP 120/72; PULSE 72; O2SAT 98; BMI 33.5
--- NOTE | 2024-04-01 11:44 | A.OFFVIS_ITS ---
Vital Signs 04/01/24 11:44 Height 5 ft 4 in Weight 195 lb 6 oz BMI 33.5 BP 120/72 Blood Pressure Location Rt brachial Position Sitting Pulse 72 Pulse Source Pulse Oximeter Pulse Oximetry (%) 98 Oxygen Delivery Method Room Air Intake Visit Reasons: Asthma Allergies apple [Apple] Allergy (Unknown, Verified 04/01/24 11:48) LIPS SWELL Latex, Natural Rubber Adverse Reaction (Mild, Verified 04/01/24 11:48) TOPICAL IRRITANT HPI HPI Asthma: Details: Magy is a pleasant 43 year old female, never smoker, with underlying asthma, GERD and seizures. At the last visit, she was started on singulair in addition to Symbicort 160mcg and reports improved symptomatic control. Today denies any cough, wheezing, dyspnea, or chest tightness. We had reviewed her PFT previously which revealed mild restrictive defect and was sent for a chest CT, however patient no showed. She states she forgot about scheduled CT and would like to proceed with order. [facility] Medical History (Updated 01/13/24 @ 17:40 by Delmy Millan MD) Allergic conjunctivitis COVID-19 Well woman exam Transient visual loss of right eye Hair loss Facial dermatitis Contusion of left arm Elevated LFTs Loose stools Chronic cough Asthmatic bronchitis Cough Mild persistent asthma Dysplasia of cervix, low grade (MELVIN 1) GERD (gastroesophageal reflux disease) Recurrent respiratory infection Lumbar radicular pain Compression fracture of T11 vertebra Insomnia Vitamin D deficiency Pelvic abscess Metrorrhagia Kidney stones Depression Migraines Seizures Surgical History S/P ARVIN (total abdominal hysterectomy) History of bilateral tubal ligation Family History (Updated 12/13/23 @ 10:29 by Delmy Millan MD) Father Diabetes Hypertension CVD (cardiovascular disease) Stroke Hypercholesterolemia Mother Diabetes Hypertension Hypercholesterolemia Brother Hypertension Maternal Aunt Breast cancer Maternal Grandmother Cervical cancer Paternal Grandmother Breast cancer Paternal Uncle CVD (cardiovascular disease) Skin cancer Social History Household Members: Family Housing: Apartment Do you presently have visiting nurse or other home services: No Alcohol intake: current Alcohol intake frequency: holidays/special occasions only Comment: 2x a month 5 beer Patient Tobacco Use Status: Never used Tobacco e-Cigarette/Vaping Use: Never Used Second Hand Smoke Exposure: No service: No Current occupational status: employed Sexual orientation: Straight/Heterosexual Gender identity: Female Cognitive needs: No Hearing needs: No Vision needs: Yes Female Reproductive History Menstrual Age of Menarche: 10 Review of Systems Const Denies chills, Denies excessive sweating, Denies fever(s), Denies headache(s) and Denies night sweats Eyes Denies dry eyes, Denies irritation and Denies itchy eyes ENT Reports Normal hearing present, Denies headache(s), Denies nasal congestion, Denies nasal discharge, Denies post nasal drip and Denies sore throat Card Denies chest pain, Denies chest pain at rest, Denies chest pain with activity, Denies claudication, Denies leg edema, Denies dyspnea, Denies dyspnea on exertion, Denies orthopnea and Denies paroxysmal nocturnal dyspnea Resp Denies chest congestion, Denies cough, Denies excessive phlegm production, Den ies pain on inspiration, Denies pain with cough, Denies dyspnea, Denies dyspnea on exertion, Denies stridor and Denies wheezing Musc Denies myalgias Neuro Reports Normal hearing present and Denies headache(s) Endo Denies excessive sweating Andrea/Lymph Denies lymphadenopathy Aller/Immun Denies itchy eyes, Denies seasonal rhinorrhea and Denies wheezing Physical Exam Vital Signs: Last Vital Signs Pulse 72 04/01/24 11:44 BP 120/72 04/01/24 11:44 Pulse Ox 98 04/01/24 11:44 Oxygen Delivery Method Room Air 04/01/24 11:44 BMI result Body Mass Index 33.5 Const General: cooperative, healthy appearing, comfortable, no acute distress, well developed and alert Nutritional Appearance: obese Orientation/consciousness: patient oriented x3 Limitations: no limitations HEENT Head: Yes normal to inspection, Yes normocephalic and Yes atraumatic Ears: hearing grossly normal bilaterally and external ears normal Eyes General: appearance normal, both eyes and all related structures Eyelids: Yes eyelids normal Sclerae: sclerae normal EOM: EOMs intact bilaterally Neck Neck: Yes normal visual inspection and Yes no lymphadenopathy Lymphatic: no lymphadenopathy noted Chest Chest palpation & inspection: normal inspection of the chest Resp Effort & Inspection: normal respiratory effort, able to speak in complete sentences, no audible wheezes, no cough, no stridor, not tachypneic, no tripod positioning and no use of accessory muscles Auscultation: clear to auscultation bilaterally Cardio Jugular venous distension: no JVD Rate: regular rate Rhythm: regular rhythm Skin Other: warm, dry General skin exam: no rashes or lesions noted Neuro General: patient oriented x3 Cranial nerves: Yes Normal hearing present Cognition (Neuro): normal cognition Gait exam (Neuro): Normal gait present Extrem General: Yes normal to inspection, Yes capillary refill normal, Yes no clubbing, cyanosis or edema and Yes no pedal edema Psych Appearance: grossly normal and well kempt Speech and movement: Normal speech and movement present and Clear speech present Affect: normal affect Attitude: cooperative Thought process: Normal thought process present Thought content: Normal thought content present Insight: Good insight present (Psych) Judgement: Good judgement present (Psych) Assessment & Plan Assessment & Plan (1) Asthma: Code(s): J45.909 - Unspecified asthma, uncomplicated Category: Medical (2) Environmental allergies: Code(s): Z91.09 - Other allergy status, other than to drugs and biological substances Category: Medical Plan At this time she reports symptoms are well controlled, advised to continue. She is aware to call if symptoms are worsening. She is interested in proceeding with chest CT, will notify OF that patient would like to have scheduled. She is also requesting allergy referral, will enter this. All questions were answered and patient is in agreement of plan. Will follow-up to review chest CT or sooner if needed. Orders: Referrals Allergy & Immunology Referral Z91.09 - Other allergy status, other than to drugs and biological substances Coding Level of Care Code Est Pt Level 3 (31287) Diagnoses Asthma J45.909 Environmental allergies Z91.09
== END 2024-04-01 12:07 | disposition home or self-care (01) ==
PROVIDERS: PCP Internal Medicine; Visit Provider Nurse Practitioner Family
DX: J45.909 Unspecified asthma, uncomplicated (principal); Z91.09 Other allergy status, other than to drugs and biological substances
CPT/HCPCS: 99213

== ENCOUNTER → 2024-04-01 11:24 | Outpatient (BNVA) | payer OTHER, SELFPAY | PROVIDERS: PCP Internal Medicine; Visit Provider Nurse Practitioner Family | DX: J45.909 Unspecified asthma, uncomplicated (principal); Z91.09 Other allergy status, other than to drugs and biological substances | CPT/HCPCS: 99212 ==

== ENCOUNTER 2024-04-23 16:28 | Outpatient (REF) | payer OTHER, SELFPAY ==
--- NOTE | ~2024-04-23 | CT_ITS ---
EXAMINATION: CT CHEST WITHOUT CONTRAST CLINICAL INFORMATION: Abnormal results of pulmonary function studies. COMPARISON: None available. TECHNIQUE: Multidetector volumetric CT imaging of the chest was done. Axial MIP volume rendering provided. Sagittal and coronal reformatted images were obtained. This CT examination was performed using dose optimization techniques as appropriate, variously including the following: *Automated exposure control *Adjustment of mA and/or kV according to patient size (this includes techniques or standardized protocols for targeted exams where dose is matched to indication/reason for exam; i.e. extremities or head) *Use of iterative reconstruction technique DLP: 174 mGy-cm FINDINGS: Submitted for interpretation on July 03, 2024. LUNGS: Nonspecific, 1 mm noncalcified pulmonary nodule in the periphery of the left lower lung lobe. Bilateral subtle pulmonary mosaic pattern. No consolidation, pleural effusion or pneumothorax. No bronchiectasis. No honeycombing. Respiratory airways patent. Subsegmental atelectasis versus scarring, lingula and right middle lobe. No lymphadenopathy, mediastinum or axillary. No aneurysm, thoracic aorta. No pericardial effusion. No acute fracture or listhesis in the axial skeleton. No lytic or blastic lesions. Mild multilevel thoracic spondylosis. In the thyroid gland is not enlarged. CT/CT chest wo IV con IMPRESSION: Pulmonary mosaic pattern. Consider small vessel disease versus small pulmonary artery disease. Nonspecific, 1 mm noncalcified pulmonary nodule, left lower lobe... Fleischner guidelines were followed. Electronically signed by: Fadi Ibrahim MD 07/03/2024 11:01 AM JOHN
== END 2024-04-23 16:29 | disposition home or self-care (01) ==
LOC: HO.CT 16:28
PROVIDERS: PCP Internal Medicine; Visit Provider Nurse Practitioner Family
DX: R94.2 Abnormal results of pulmonary function studies (principal)
CPT/HCPCS: 71250

== ENCOUNTER → 2024-04-23 16:30 | Outpatient (BNV) | payer OTHER, SELFPAY | PROVIDERS: PCP Internal Medicine; Visit Provider Radiology Diagnostic Radiology | DX: R94.2 Abnormal results of pulmonary function studies (principal) | CPT/HCPCS: 71250 ==

== ENCOUNTER 2024-05-04 22:22 | Emergency (ER) | payer OTHER, SELFPAY ==
[2024-05-04 22:38] VITALS: BP 144/84; PULSE 87; RESP 16; TEMP 36.8; O2SAT 97; BMI 31.8
[2024-05-05 01:44] VITALS: BP 117/68; PULSE 81; RESP 16; TEMP 36.6; O2SAT 99
--- NOTE | 2024-05-05 03:35 | ED.EYEPROB ---
HPI - Eye Problem General Chief complaint: Eye Problems Stated complaint: blood in eye Time Seen by Provider: 05/05/24 03:25 Source: patient Mode of arrival: ambulatory Limitations: no limitations History of Present Illness ED Provider: Dr. Gris Wyatt HPI Narrative: Patient comes in the emergency room complaining of a blood collection in the sclera of the right eye. Patient states that her daughter noticed that there was blood in the and came to the emergency room. Patient states that she did not feel anything until her daughter pointed it out, patient states now it feels slightly uncomfortable, no pain, no foreign body sensation. Patient denies any visual changes Related Data Home Medications ?Medication ?Instructions ?Recorded ?Confirmed sumatriptan succinate 50 mg tablet 50 mg PO Q2-4H PRN 10/24/22 01/13/24 (Imitrex) Previous Rx's ?Medication ?Instructions ?Recorded ipratropium 0.5 mg-albuterol 3 mg 3 ml inhalation Q6H PRN wheezing 10/24/23 (2.5 mg base)/3 mL nebulization #180 mL soln famotidine 40 mg tablet (Pepcid) 40 mg PO BEDTIME #90 tabs 12/17/23 montelukast 10 mg tablet 10 mg PO BEDTIME #30 tabs 12/25/23 (Singulair) albuterol sulfate 90 mcg/actuation 2 puff inhalation Q4-6H PRN 01/13/24 aerosol inhaler shortness of breath or wheezing #8.5 grams budesonide-formoterol HFA 160 2 puff inhalation BID #10.2 grams 02/03/24 mcg-4.5 mcg/actuation aerosol inhaler (Symbicort) meloxicam 15 mg tablet 15 mg PO DAILY PRN pain #30 tabs 02/03/24 Allergies Allergy/AdvReac Type Severity Reaction Status Date / Time Seasonal Allergies Allergy Mild Itchy Eyes Verified 05/04/24 22:40 apple [Apple] Allergy Unknown LIPS SWELL Verified 05/04/24 22:40 Latex, Natural Rubber AdvReac Mild TOPICAL Verified 05/04/24 22:40 IRRITANT Review of Systems Review of Systems: Constitutional : No Weight loss, No Fever, No Chills, No Night Sweats, No Fatigue, No Malaise ENT/Mouth : No Hearing loss, No Ear Pain, No Nasal Congestion, No Sinus Pain, No Hoarseness, No sore throat, No Rhinorrhea, No Swallowing Difficulty Eyes: Complaining of a mild blood collection in the sclerae of the right eye No Eye Pain, No Swelling, No Redness, No Foreign Body, No Discharge, No Vision Changes Cardiovascular : No Chest Pain, No SOB, No Dyspnea on Exertion, No Orthopnea, No Edema, No Palpitations Respiratory : No Cough, No Sputum, No Wheezing, No Smoke Exposure, No Dyspnea Gastrointestinal : No Nausea, No Vomiting, No Diarrhea, No Constipation, No abdominal Pain, No Hematochezia, No Melena Genitourinary : no irregular bleeding, No Dysuria, No Urinary Frequency, No Hematuria, No Urinary Incontinence, No Urgency, No Flank Pain, No Urinary Flow Changes, No Hesitancy Musculoskeletal : No joint pain, No Myalgias, No Joint Swelling Skin : No Skin Lesions, No rash Neuro : No Weakness, No Numbness, No Paresthesias, No Loss of Consciousness, No Dizziness, No Headache Psych : No Anxiety/Panic, No Depression, No SI/HI/AH/VH, No Social Issues, Heme/Lymph: No Bruising, No Bleeding,No Lymphadenopathy Endocrine : No Polyuria, No Polydipsia, No Temperature Intolerance PMFSH Past Medical History Medical History Allergic conjunctivitis COVID-19 Well woman exam Transient visual loss of right eye Hair loss Facial dermatitis Contusion of left arm Elevated LFTs Loose stools Chronic cough Asthmatic bronchitis Cough Mild persistent asthma Dysplasia of cervix, low grade (MELVIN 1) GERD (gastroesophageal reflux disease) Recurrent respiratory infection Lumbar radicular pain Compression fracture of T11 vertebra Insomnia Vitamin D deficiency Pelvic abscess Metrorrhagia Kidney stones Depression Migraines Seizures Surgical History S/P ARVIN (total abdominal hysterectomy) History of bilateral tubal ligation Family History Family History (Updated 12/13/23 @ 10:29 by Delmy Millan MD) Father Diabetes Hypertension CVD (cardiovascular disease) Stroke Hypercholesterolemia Mother Diabetes Hypertension Hypercholesterolemia Brother Hypertension Maternal Aunt Breast cancer Maternal Grandmother Cervical cancer Paternal Grandmother Breast cancer Paternal Uncle CVD (cardiovascular disease) Skin cancer Social History Social History Household Members: Family Housing: Apartment Do you presently have visiting nurse or other home services: No Alcohol intake: current Alcohol intake frequency: holidays/special occasions only Comment: 2x a month 5 beer Patient Tobacco Use Status: Never used Tobacco Smoked in Last 30 Days: No e-Cigarette/Vaping Use: Never Used Second Hand Smoke Exposure: No Use of substances other than those prescribed or required for medical reasons: No Advance Directives: No Advance Directives Information Provided: Yes Patient : No service: No Current occupational status: employed Sexual orientation: Straight/Heterosexual Gender identity: Female Cognitive needs: No Hearing needs: No Vision needs: Yes Physical Exam Vital Signs: Vital Signs: Last Vital Signs Temp 97.9 F 05/05/24 01:44 Pulse 81 05/05/24 01:44 Resp 16 05/05/24 01:44 BP 117/68 05/05/24 01:44 Pulse Ox 99 05/05/24 01:44 O2 Del Method Room Air 05/05/24 01:44 BMI result Body Mass Index 31.8 Const: Other: Appearance: Alert. Oriented X3. No acute distress. Eyes: Pupils equal, round and reactive to light. This reactive to light, equally bilaterally, patient has a subconjunctival hemorrhage in the right eye. Fluorescein stain does not show any laceration or corneal abrasion. Negative Joey sign, ocular pressure 18 mmHg on the right ENT: Pharynx normal. Neck: Normal inspection. Neck supple. No lymph nodes noted. No crepitus CVS: Normal heart rate and rhythm. Pulses normal. Normal S1 and S2 Respiratory: No respiratory distress. Breath sounds normal. No Wheezing. No rales Abdomen: Soft and nontender. No rigidity. No distention. Skin: Skin warm and dry. Normal skin color. Normal skin turgor. Extremities: No lower extremity edema. No Lacerations. No Rash Neuro: Oriented X 3. No motor deficit. No sensory deficit. Moving all extremities. No slurred speech. CN 2 through 12 grossly intact Psych: calm, cooperative, normal affect Medical Decision Making Medical Decision Making MDM Narrative: -I discussed with the patient that she has a spontaneous nontraumatic some conjunctival hemorrhage. This will likely resolve within the next 2-3 weeks, no acute treatment necessary. Discharge Plan Discharge Clinical Impression: Subconjunctival hemorrhage Patient Disposition: Home, Self-Care Instructions: Subconjunctival Hemorrhage (ED) Additional Instructions: Please follow-up with your primary care physician tomorrow. If you have any worsening or new symptoms, please return to the emergency room or call 911 Prescriptions: No Action ipratropium-albuterol 0.5 mg-3 mg(2.5 mg base)/3 mL solution for nebulization 3 ml inhalation Q6H PRN (Reason: wheezing) Qty: 180 0RF famotidine [Pepcid] 40 mg tablet 40 mg PO BEDTIME Qty: 90 1RF meloxicam 15 mg tablet 15 mg PO DAILY PRN (Reason: pain) Qty: 30 0RF budesonide-formoterol [Symbicort] 160-4.5 mcg/actuation HFA aerosol inhaler 2 puff inhalation BID Qty: 10.2 3RF sumatriptan succinate [Imitrex] 50 mg tablet 50 mg PO Q2-4H PRN Rx Instructions: do not exceed 4 doses per 24 hrs albuterol sulfate 90 mcg/actuation HFA aerosol inhaler 2 puff inhalation Q4-6H PRN (Reason: shortness of breath or wheezing) Qty: 8.5 0RF montelukast [Singulair] 10 mg tablet 10 mg PO BEDTIME Qty: 30 5RF Stand Alone Forms: Work/School Release Print Language: Mozambican
[2024-05-05 03:46] VITALS: BP 123/77; PULSE 76; RESP 18; TEMP 36.6; O2SAT 100
== END 2024-05-05 03:47 | disposition home or self-care (01) ==
PROVIDERS: Emergency Provider Emergency Medicine; PCP Internal Medicine
DX: H11.31 Conjunctival hemorrhage, right eye (principal); H57.11 Ocular pain, right eye; Z79.899 Other long term (current) drug therapy
CPT/HCPCS: 99282; 99284

== ENCOUNTER 2024-06-17 16:10 | Outpatient (AMB) | payer OTHER, SELFPAY ==
[2024-06-17 16:10] VITALS: BP 112/72; PULSE 82; O2SAT 98; BMI 34.2
--- NOTE | 2024-06-17 16:10 | A.OFFPC_ITS ---
Vital Signs 06/17/24 16:10 Height 5 ft 4 in Weight 199 lb 2 oz BMI 34.2 BP 112/72 Blood Pressure Location Lt brachial Position Sitting Pulse 82 Pulse Source Pulse Oximeter Pulse Oximetry (%) 98 Oxygen Delivery Method Room Air Intake Visit Reasons: annual exam Intake Note: Patient is here today for a physical. Industrial Gas Fitter Required: No Accompanied by: Significant Other Allergies Seasonal Allergies Allergy (Mild, Verified 06/17/24 16:21) Itchy Eyes apple [Apple] Allergy (Unknown, Verified 06/17/24 16:21) LIPS SWELL Latex, Natural Rubber Adverse Reaction (Mild, Verified 06/17/24 16:21) TOPICAL IRRITANT Medication List - Last Reconciled 06/17/24 by Ninfa Hart PA-C albuterol sulfate 90 mcg/actuation 2 puffs inhalation Q4-6H PRN budesonide-formoterol 160-4.5 mcg/actuation (Symbicort) 2 puffs inhalation BID famotidine (Pepcid) 40 mg PO BEDTIME ipratropium-albuterol 0.5 mg-3 mg(2.5 mg base)/3 mL 3 mL inhalation Q6H PRN meloxicam 15 mg PO DAILY PRN montelukast (Singulair) 10 mg PO BEDTIME sumatriptan succinate (Imitrex) 50 mg PO Q2-4H PRN Tobacco use date assessed: 06/17/24 Dental Screening Dental Screen Date: 06/17/24 Did you have a dental visit in the last 12 months?: Yes Did you have a dental problem in the last 6 months where you did not have access to dental care?: No Was dental information given to patient?: Patient has dentist HPI annual exam HPI Details 43-year-old female with past medical his tory of seizures, hypercholesterolemia, GERD, asthma last seen by Dr. Millan January 2024 coming in for annual exam. In review of the notes, patient was seen by [facility] pulmonology 04/01/2024 symptoms well controlled ordered for chest CT referral placed to associate principal. Patient had barium swallow completed February 2024 showed disorganized esophageal peristalsis and small type 1 hiatal hernia. Patient has not yet scheduled her colonoscopy. She is up-to-date on her mammogram and Pap smear and follows with gynecology for these. She states she has a history of boils in her genital region only when she shaves her bikini area she is to have a cream given by Dr. Millan but is unsure of the name and would like to go back on the cream. No other concerns today. [facility] Medical History Allergic conjunctivitis COVID-19 Well woman exam Transient visual loss of right eye Hair loss Facial dermatitis Contusion of left arm Elevated LFTs Loose stools Chronic cough Asthmatic bronchitis Cough Mild persistent asthma Dysplasia of cervix, low grade (MELVIN 1) GERD (gastroesophageal reflux disease) Recurrent respiratory infection Lumbar radicular pain Compression fracture of T11 vertebra Insomnia Vitamin D deficiency Pelvic abscess Metrorrhagia Kidney stones Depression Migraines Seizures Surgical History S/P ARVIN (total abdominal hysterectomy) History of bilateral tubal ligation Family History Father Diabetes Hypertension CVD (cardiovascular disease) Stroke Hypercholesterolemia Mother Diabetes Hypertension Hypercholesterolemia Brother Hypertension Maternal Aunt Breast cancer Maternal Grandmother Cervical cancer Paternal Grandmother Breast cancer Paternal Uncle CVD (cardiovascular disease) Skin cancer Social History Household Members: Family Housing: Apartment Do you presently have visiting nurse or other home services: No Alcohol intake: current Alcohol intake frequency: holidays/special occasions only Comment: 2x a month 5 beer Patient Tobacco Use Status: Never used Tobacco e-Cigarette/Vaping Use: Never Used Second Hand Smoke Exposure: No service: No Current occupational status: employed Sexual orientation: Straight/Heterosexual Gender identity: Female Cognitive needs: No Hearing needs: No Vision needs: Yes Female Reproductive History Menstrual Age of Menarche: 10 Questionnaire PHQ-9 Over the last 2 weeks, how often have you been bothered by any of the following problems? 1. Little interest or pleasure in doing things: not at all 2. Feeling down, depressed, or hopeless: not at all 3. Trouble falling or staying asleep, or sleeping too much: not at all 4. Feeling tired or having little energy: not at all 5. Poor appetite or overeating: not at all 6. Feeling bad about yourself - or that you are a failure or have let yourself or your family down: not at all 7. Trouble concentrating on things, such as reading the newspaper or watching television: not at all 8. Moving or speaking so slowly that other people could have noticed. Or the opposite - being so fidgety or restless that you have been moving around a lot more than usual: not at all 9. Thoughts that you would be better off or of hurting yourself in some way: not at all Total score: 0 Depression Screening Interpretation: Negative Depression Screening Done: Yes 06089 - PHQ-9 Billing: Yes Source: Developed by Drs. Felix Menon, Shanon Dickey, Christian Mai and colleagues, with an educational tod from [employer]. Thrive Questionnaire Date Thrive assessed: 06/17/24 I am a: Patient What is your living situation today?: I have a steady place to live Within the past 12 months, did the food you bought not last and you didn't have the money to get more?: Never true Within the past 12 months, did you worry whether your food would run out before you got money to buy more?: Never true Do you have trouble paying for medicines?: No Do you have trouble getting transportation to medical appointments?: No Do you have trouble paying your heating and electricity bill?: No Do you have trouble taking care of your child, family member or friend?: No Do you have trouble with day-to-day activities such as bathing, preparing meals, shopping, managing finances, etc.?: No Are you currently unemployed and looking for a job?: No Are you interested in more education?: No Please select the resources that you would like help with: None Currently or been in a relationship where the following occur: No concerns reported THRIVE Score: 0 AUDIT C Alcohol Use Questionnaire (AUDIT-C) 1. How often do you have a drink containing alcohol?: Monthly or less 2. How many drinks containing alcohol do you have on a typical day when you are drinking?: 1 or 2 3. How often do you have six or more drinks on one occasion?: Never Total Score: 1 OMAR-7 AMB Questionnaire OMAR-7 Date OMAR - 7 assessed: 06/17/24 Feeling nervous, anxious, or on edge: 0 = Not at all Not being able to stop or control worryin = Not at all Worrying too much about different things: 0 = Not at all Trouble relaxin = Not at all Being so restless that it is hard to sit still: 0 = Not at all Becoming easily annoyed or irritable: 0 = Not at all Feeling afraid as if something awful might happen: 0 = Not at all Total OMAR-7 score (0-4 normal; 5-9 mild; 10-14 moderate; 15-21 severe): 0 Source: Developed by Drs. Felix Menon, Shanon Dickey, Christian Mai and colleagues, with an educational tod from [employer]. OMAR-7 Assessment Billing OMAR-7 Assessment Tool: OMAR-7 Assessment 97536 Review of Systems Const Denies body aches, Denies fatigue, Denies fever(s), Denies frequent falls, Denies headache(s) and Denies weakness Eyes Reports no additional complaints and Denies change in vision ENT Details: will cough when eating too fast Denies dysphagia, Denies dizziness, Denies facial pain, Denies headache(s), Denies nasal congestion and Denies odynophagia Card Denies chest pain, Denies syncope, Denies irregular heart rhythm, Denies leg edema, Denies lightheadedness and Denies dyspnea Resp Denies cough and Denies dyspnea GI Reports abdominal pain (occasional), Denies constipation, Denies dysphagia, Denies dyspepsia, Denies diarrhea, Denies nausea, Denies odynophagia and Denies vomiting Denies urinary frequency, Denies dysuria, Denies urinary hesitancy and Denies urinary urgency Musc Denies back pain and Denies myalgias Skin/Breast Reports system reviewed and no additional complaints, except as documented Neuro Denies dizziness, Denies syncope, Denies frequent falls, Denies headache(s) and Denies weakness Psych Reports no additional complaints Endo Denies fatigue Physical exam (Primary Care) Vital Signs: Last Vital Signs Pulse 82 06/17/24 16:10 BP 112/72 06/17/24 16:10 Pulse Ox 98 06/17/24 16:10 Oxygen Delivery Method Room Air 06/17/24 16:10 BMI result Body Mass Index 34.2 Tobacco/Smoking Status: Tobacco use Status Tobacco use date assessed 06/17/24 06/17/24 16:19 Patient Tobacco Use Status Never used Tobacco 06/17/24 16:13 e-Cigarette/Vaping Use Never Used 06/17/24 16:13 PHQ-9: PHQ-9 Score PHQ-9: Total score 0 06/17/24 16:19 Depression Screening Interpretation: Negative Thrive Assessment: Date of Thrive Assessment Date Thrive assessed 06/17/24 06/17/24 16:19 Currently or been in a relationship where the following occur: No concerns reported Const General: cooperative, healthy appearing, comfortable and no acute distress Orientation/consciousness: patient oriented x3 HENMT Head: Yes normocephalic Ears: hearing grossly normal bilaterally, external ears normal, TM's normal bilaterally and EAC's normal General nose exam: Normal external nose present Face and sinus: Yes normal facial exam and Yes sinuses nontender Mouth: Normal oral and palatal mucosa present and tongue normal Throat: Yes posterior oropharynx normal Eyes General: appearance normal, both eyes and all related structures Conjunctivae: conjunctivae normal Pupils: Equal, round and reactive pupils present EOM: EOMs intact bilaterally and No Nystagmus present Neck Neck: Yes normal visual inspection, Yes full ROM and Yes no lymphadenopathy Chest Chest palpation & inspection: normal inspection of the chest Resp Effort & Inspection: normal respiratory effort Auscultation: clear to auscultation bilaterally, no crackles, no rales, no rhonchi, no wheezes and breath sounds present Cardio Rate: regular rate Rhythm: regular rhythm Peripheral pulses: radial pulses present and dorsalis pedis present GI Inspection: Yes normal to inspection and No Abdominal wall edema Palpation (GI): Soft to palpation, not firm and nontender Auscultation: normal bowel sounds Rectal Exam - Female: deferred General: Yes no CVA tenderness Back/Spine/Pelvis Back: no CVA tenderness Skin General skin exam: no rashes or lesions noted Neuro General: patient oriented x3 Cranial nerves: Yes Equal, round and reactive pupils present, Yes Midline tongue present, Yes Ability to bilaterally elevate shoulders present and No Nystagmus present Gait exam (Neuro): Normal gait present Extrem General: Yes normal to inspection, Yes full ROM, No no pedal edema and No edema Psych Speech and movement: Normal speech and movement present Affect: normal affect Insight: Good insight present (Psych) Judgement: Good judgement present (Psych) Office Procedures Flu Questionnaire Does the patient have a severe egg allergy?: No Immunizations Fluarix Triv [id number] (PF) 45 mcg (15 mcg x 3)/0.5 mL IM syringe Performing Provider: Ninfa Hart PA-C [facility] Documented (not given) by: JIMENA Gamble on 06/17/24 16:18 Reason Not Given: Patient Refused Coding Level of Care Code Est Pt Prev Care 40-64y(43276) Diagnoses Restrictive lung disease J98.4 Asthma J45.909 GERD (gastroesophageal reflux disease) K21.9 Seizures R56.9 Annual physical exam Z00.00 Environmental allergies Z91.09 Hypercholesterolemia E78.00 Additional Codes OMAR-7 Assessment Billing - OMAR-7 Assessment Tool: OMAR-7 Assessment 11554 ([id number]) PHQ-9 - 53521 - PHQ-9 Billing: Yes ([id number]) Assessment & Plan Assessment & Plan (1) Restrictive lung disease: Code(s): J98.4 - Other disorders of lung Category: Medical Plan: Plan to have CT done with pulmonology. Stable on current medication regimen and continue to follow with isotope technician. (2) Asthma: Code(s): J45.909 - Unspecified asthma, uncomplicated Category: Medical Plan: Asthma currently controlled on present medications. Continue on Symbicort and albuterol as needed. Avoid triggers such as allergies. (3) GERD (gastroesophageal reflux disease): Code(s): K21.9 - Gastro-esophageal reflux disease without esophagitis Category: Medical Plan: Avoid trigger foods such as citrus, tomato products, soda, caffeine, spicy foods and other foods that may be irritating to your stomach. Avoid laying flat 3-4 hours after eating and elevate the head of the bed 30 degrees to prevent acid from moving into the esophagus. (4) Seizures: Comment: Partial complex Code(s): R56.9 - Unspecified convulsions Category: Medical Plan: Not currently on medical management. Has not had a seizure in several years. (5) Annual physical exam: Code(s): Z00.00 - Encounter for general adult medical examination without abnormal findings Category: Medical Plan: Patient is up-to-date on all recommended routine screenings and vaccinations for her age. Advised patient to follow up with GI to reschedule colonoscopy as she missed the initial appointment. Up-to-date on all vaccines. (6) Environmental allergies: Code(s): Z91.09 - Other allergy status, other than to drugs and biological substances Category: Medical Plan: Referral placed to associate principal by isotope technician. (7) Hypercholesterolemia: Code(s): E78.00 - Pure hypercholesterolemia, unspecified Category: Medical Plan: Avoid foods that are high in cholesterol such as red meat, fried foods, eggs and baked goods. Triglyceride goal of less than 150 and LDL goal of less than 130. Not currently on medical management. Plan Patient is scheduled to be seen in a few weeks for preoperative visit for breast reduction. Ordered for blood work and EKG required for this visit. This note was constructed using voice recognition software. While every effort has been made to ensure accuracy and jelly maker, still areas may have been included sometimes these areas may affect the content or meeting of the given symptoms. Total time spent caring for the patient today was 30 minutes. This includes time spent before the visit reviewing the chart, time spent during the visit, and time spent after the visit and documentation. Orders: Orders Complete Blood Count Auto Diff 06/17/24 Z00.00 - Encounter for general adult medical examination without abnormal findings ECG 12 lead EKG 06/17/24 Z01.818 - Encounter for other preprocedural examination Influenza [id number] Immunization 06/17/24 Z23 - Encounter for immunization Comprehensive Met. Panel 06/17/24 Z00.00 - Encounter for general adult medical examination without abnormal findings
== END 2024-06-17 16:43 | disposition home or self-care (01) ==
PROVIDERS: PCP Internal Medicine
DX: Z00.00 Encounter for general adult medical examination without abnormal findings (principal); R56.9 Unspecified convulsions; J98.4 Other disorders of lung; J45.909 Unspecified asthma, uncomplicated; K21.9 Gastro-esophageal reflux disease without esophagitis; Z91.09 Other allergy status, other than to drugs and biological substances; E78.00 Pure hypercholesterolemia, unspecified

== ENCOUNTER → 2024-06-17 16:10 | Outpatient (BNVA) | payer OTHER, SELFPAY | PROVIDERS: PCP Internal Medicine | DX: Z00.00 Encounter for general adult medical examination without abnormal findings (principal); J98.4 Other disorders of lung; J45.909 Unspecified asthma, uncomplicated; K21.9 Gastro-esophageal reflux disease without esophagitis; R56.9 Unspecified convulsions; E78.00 Pure hypercholesterolemia, unspecified; Z91.09 Other allergy status, other than to drugs and biological substances | CPT/HCPCS: 90471; 96127; 99396 ==

== ENCOUNTER 2024-07-01 15:58 | Outpatient (AMB) | payer OTHER, SELFPAY ==
--- NOTE | 2024-07-01 12:57 | A.OFFPC_ITS ---
Vital Signs 07/01/24 15:05 Height 5 ft 4 in Weight 195 lb BMI 33.5 BP 110/68 Blood Pressure Location Lt brachial Position Sitting Pulse 79 Pulse Source Pulse Oximeter Pulse Oximetry (%) 99 Oxygen Delivery Method Room Air Intake Visit Reasons: Breast reduction Fauzia Qureshi 07/14 Intake Note: Patient is here for a Pre-op for breast reduction scheduled with Fauziaacacia Qureshi on 07/14/24 Allergies Seasonal Allergies Allergy (Mild, Verified 07/01/24 16:14) Itchy Eyes apple [Apple] Allergy (Unknown, Verified 07/01/24 16:14) LIPS SWELL Latex, Natural Rubber Adverse Reaction (Mild, Verified 07/01/24 16:14) TOPICAL IRRITANT Medication List - Last Reconciled 07/01/24 by Ninfa Hart PA-C albuterol sulfate 90 mcg/actuation 2 puffs inhalation Q4-6H PRN budesonide-formoterol 160-4.5 mcg/actuation (Symbicort) 2 puffs inhalation BID famotidine (Pepcid) 40 mg PO BEDTIME ipratropium-albuterol 0.5 mg-3 mg(2.5 mg base)/3 mL 3 mL inhalation Q6H PRN meloxicam 15 mg PO DAILY PRN montelukast (Singulair) 10 mg PO BEDTIME mupirocin 2% 1 appl topical BID sumatriptan succinate (Imitrex) 50 mg PO Q2-4H PRN Tobacco use date assessed: 06/17/24 Dental Screening Dental Screen Date: 06/17/24 HPI Breast reduction Fauzia Qureshi 07/14 HPI Details 43-year-old female with past medical his tory of seizures, hypercholesterolemia, GERD, asthma last seen June 2024 coming in for preoperative exam. Patient is scheduled to have breast reduction surgery with Fauzia Titus 07/14/2024. Seizure disorder: Has not had seizure in over 10 years and not currently on seizure prophylaxis. Patient has no history of NH, CVA or diabetes mellitus. Patient has undergone surgery in the past without complication. [facility] Medical History Allergic conjunctivitis COVID-19 Well woman exam Transient visual loss of right eye Hair loss Facial dermatitis Contusion of left arm Elevated LFTs Loose stools Chronic cough Asthmatic bronchitis Cough Mild persistent asthma Dysplasia of cervix, low grade (MELVIN 1) GERD (gastroesophageal reflux disease) Recurrent respiratory infection Lumbar radicular pain Compression fracture of T11 vertebra Insomnia Vitamin D deficiency Pelvic abscess Metrorrhagia Kidney stones Depression Migraines Seizures Surgical History S/P ARVIN (total abdominal hysterectomy) History of bilateral tubal ligation Family History Father Diabetes Hypertension CVD (cardiovascular disease) Stroke Hypercholesterolemia Mother Diabetes Hypertension Hypercholesterolemia Brother Hypertension Maternal Aunt Breast cancer Maternal Grandmother Cervical cancer Paternal Grandmother Breast cancer Paternal Uncle CVD (cardiovascular disease) Skin cancer Social History Household Members: Family Housing: Apartment Do you presently have visiting nurse or other home services: No Alcohol intake: current Alcohol intake frequency: holidays/special occasions only Comment: 2x a month 5 beer Patient Tobacco Use Status: Never used Tobacco e-Cigarette/Vaping Use: Never Used Second Hand Smoke Exposure: No service: No Current occupational status: employed Sexual orientation: Straight/Heterosexual Gender identity: Female Cognitive needs: No Hearing needs: No Vision needs: Yes Female Reproductive History Menstrual Age of Menarche: 10 Questionnaire Thrive Questionnaire Date Thrive assessed: 06/17/24 I am a: Patient What is your living situation today?: I have a steady place to live Within the past 12 months, did the food you bought not last and you didn't have the money to get more?: Never true Within the past 12 months, did you worry whether your food would run out before you got money to buy more?: Never true Do you have trouble paying for medicines?: No Do you have trouble getting transportation to medical appointments?: No Do you have trouble paying your heating and electricity bill?: No Do you have trouble taking care of your child, family member or friend?: No Do you have trouble with day-to-day activities such as bathing, preparing meals, shopping, managing finances, etc.?: No Are you currently unemployed and looking for a job?: No Are you interested in more education?: No Please select the resources that you would like help with: None Currently or been in a relationship where the following occur: No concerns reported THRIVE Score: 0 AUDIT C Alcohol Use Questionnaire (AUDIT-C) 2. How many drinks containing alcohol do you have on a typical day when you are drinking?: 1 or 2 3. How often do you have six or more drinks on one occasion?: Less than monthly Total Score: 1 OMAR-7 AMB Questionnaire OMAR-7 Date OMAR - 7 assessed: 06/17/24 Source: Developed by Drs. Felix Menon, Shanon Dickey, Christian Mai and colleagues, with an educational tod from [email or web address]. Review of Systems Const Denies body aches, Denies chills, Denies fever(s), Denies headache(s) and Denies poor appetite Eyes Reports no additional complaints ENT Denies dizziness and Denies headache(s) Card Denies chest pain, Denies syncope, Denies edema, Denies irregular heart rhythm, Denies lightheadedness and Denies dyspnea Resp Denies cough and Denies dyspnea GI Denies abdominal pain, Denies diarrhea, Denies nausea and Denies vomiting Reports no additional complaints Musc Reports no additional complaints and Denies abnormal gait Skin/Breast Reports system reviewed and no additional complaints, except as documented Neuro Denies abnormal gait, Denies dizziness, Denies syncope and Denies headache(s) Psych Reports no additional complaints Physical exam (Primary Care) Vital Signs: Last Vital Signs Pulse 79 07/01/24 15:05 BP 110/68 07/01/24 15:05 Pulse Ox 99 07/01/24 15:05 Oxygen Delivery Method Room Air 07/01/24 15:05 BMI result Body Mass Index 33.5 Tobacco/Smoking Status: Tobacco use Status Tobacco use date assessed 06/17/24 07/01/24 12:58 Patient Tobacco Use Status Never used Tobacco 07/01/24 12:58 e-Cigarette/Vaping Use Never Used 07/01/24 12:58 Thrive Assessment: Date of Thrive Assessment Date Thrive assessed 06/17/24 07/01/24 12:58 Currently or been in a relationship where the following occur: No concerns reported Const General: cooperative, healthy appearing, comfortable and no acute distress Orientation/consciousness: patient oriented x3 HENMT Head: Yes normocephalic Ears: hearing grossly normal bilaterally General nose exam: Normal external nose present Eyes General: appearance normal, both eyes and all related structures Conjunctivae: conjunctivae normal Neck Neck: Yes full ROM and Yes no lymphadenopathy Resp Effort & Inspection: normal respiratory effort Auscultation: clear to auscultation bilaterally, no crackles, no rales, no rhonchi and no wheezes Cardio Rate: regular rate Rhythm: regular rhythm Skin General skin exam: no rashes or lesions noted Neuro General: patient oriented x3 Gait exam (Neuro): Normal gait present Extrem General: Yes normal to inspection, Yes full ROM and No edema Psych Affect: normal affect Attitude: cooperative Insight: Good insight present (Psych) Judgement: Good judgement present (Psych) Coding Level of Care Code Est Pt Level 3 (35355) Diagnoses Pre-op evaluation Z01.818 Assessment & Plan Assessment & Plan (1) Pre-op evaluation: Code(s): Z01.818 - Encounter for other preprocedural examination Category: Medical Plan: Regarding preop clearance, the patient is at moderate risk for proposed surgery. Reviewed with the patient that no surgery is completely free of risk and that this examination is to assist the surgeon in reviewing informed consent. Advised patient to discontinue the meloxicam 7 days prior to surgery as it can contribute to bleeding. All other medications can be continued up until the day of the procedure and may resume after the procedure has been completed. Patient is not currently on anticoagulation, disease modifying drugs or antiplatelet medications. EKG and blood work was ordered for this patient which has not yet been completed. Clearance will be provided after these results have been reviewed and addendum will be added to this note. Plan This note was constructed using voice recognition software. While every effort has been made to ensure accuracy and company secretary, still areas may have been included sometimes these areas may affect the content or meeting of the given symptoms. Total time spent caring for the patient today was 30 minutes. This includes time spent before the visit reviewing the chart, time spent during the visit, and time spent after the visit and documentation. Medications: Refilled albuterol sulfate 90 mcg/actuation 2 puffs inhalation Q4-6H PRN 8.5 grams 0RF shortness of breath or wheezing J45.909 - Unspecified asthma, uncomplicated budesonide-formoterol 160-4.5 mcg/actuation (Symbicort) 2 puffs inhalation BID 10.2 grams 3RF J45.909 - Unspecified asthma, uncomplicated
[2024-07-01 15:05] VITALS: BP 110/68; PULSE 79; O2SAT 99; BMI 33.5
== END 2024-07-01 16:49 | disposition home or self-care (01) ==
PROVIDERS: PCP Internal Medicine
DX: Z01.818 Encounter for other preprocedural examination (principal)

== ENCOUNTER → 2024-07-01 15:58 | Outpatient (BNVA) | payer OTHER, SELFPAY | PROVIDERS: PCP Internal Medicine | DX: Z01.818 Encounter for other preprocedural examination (principal); J45.909 Unspecified asthma, uncomplicated | CPT/HCPCS: 99212 ==

== ENCOUNTER 2024-07-07 15:58 | Outpatient (REF) | payer OTHER, SELFPAY ==
[2024-07-07 16:08] LABS: MANUAL DIFF FLAG NO
[2024-07-07 17:07] LABS: Basophils Percent Auto 0.2 % (0-2); Eosinophils Absolute Auto 0.2 X10*3/uL (0.0-0.4); Hematocrit 39.1 % (37.0-47.0); Hemoglobin 12.6 g/dl (12.0-16.0); Imm Gran Abs Auto 0.04 X10*3/uL (0.00-0.03); Imm Gran Pct Auto 0.4 % (0.0-0.4); Lymphocytes Absolute Auto 3.2 X10*3/uL (1.2-4.9); Lymphocytes Percent Auto 29.4 % (20-40); Mean Corpuscular HGB Conc 32.2 g/dl (31.0-35.0); Mean Corpuscular Hemoglobin 29.4 pg (27.0-33.0); Mean Corpuscular Volume 91.1 fL (80.0-98.0); Mean Platelet Volume 10.7 fL (9.4-12.3); Monocytes Absolute Auto 0.7 X10*3/uL (0.1-1.2); Monocytes Percent Auto 6.9 % (2-11); Neutrophils Absolute Auto 6.6 x10*3/uL (2.0-8.3); Neutrophils Percent Auto 61.1 % (45-73); Platelet Count 333 X10*3/uL (160-400); Red Blood Count 4.29 X10*6/uL (4.20-5.50); Red Cell Distribution Width 13.4 % (11.0-16.0); White Blood Count 10.7 X10*3/uL (4.8-10.8)
[2024-07-07 18:33] LABS: Alanine Aminotransferase 17 U/L (0-31); Alkaline Phosphatase 71 U/L (39-117); Anion Gap 11 (12-20); Aspartate Amino Transferase 28 U/L (5-31); Bilirubin Total 0.3 mg/dL (0.0-1.0); Blood Urea Nitrogen 13 mg/dL (9-16); Calcium 9.3 mg/dL (8.4-10.2); Carbon Dioxide 26 mmol/L (22-29); Chloride 104 mmol/L (96-108); Estimated Glomerular Filt Rate > 60; Glucose Random 100 mg/dL (60-115); Potassium 3.7 mmol/L (3.3-5.1); Sodium 137 mmol/L (135-145); Total Protein 7.4 g/dL (6.5-8.0)
== END 2024-07-07 15:59 | disposition home or self-care (01) ==
LOC: HO.LAB 15:58
PROVIDERS: PCP Internal Medicine
DX: Z00.00 Encounter for general adult medical examination without abnormal findings (principal)
CPT/HCPCS: 36415; 80053; 85025

== ENCOUNTER → 2024-07-09 08:50 | Outpatient (REF) | payer OTHER, SELFPAY ==
--- NOTE | 2024-07-09 08:54 | ECG_ITS ---
Test Reason : preop Blood Pressure : / mmHG Vent. Rate : 078 BPM Atrial Rate : 078 BPM P-R Int : 128 ms QRS Dur : 080 ms QT Int : 384 ms P-R-T Axes : 027 018 052 degrees QTc Int : 437 ms Normal sinus rhythm Normal ECG When compared with ECG of 24-SEP-2019 15:15, No significant change was found Referred By: Ninfa Hart Electronically Signed By:Aydin Miller
== END ==
LOC: HO.CARD 08:50
PROVIDERS: PCP Internal Medicine
DX: Z01.818 Encounter for other preprocedural examination (principal)
CPT/HCPCS: 93005

== ENCOUNTER → 2024-07-09 08:54 | Outpatient (BNV) | payer OTHER, SELFPAY | PROVIDERS: PCP Internal Medicine; Visit Provider Internal Medicine Cardiovascular Disease | DX: Z01.810 Encounter for preprocedural cardiovascular examination (principal) | CPT/HCPCS: 93010 ==

== ENCOUNTER 2024-09-16 10:31 | Emergency (ER) | payer MEDICAID, SELFPAY ==
--- NOTE | ~2024-09-16 | XR_ITS ---
EXAMINATION: XR RIBS 3 VIEWS MINIMUM WITH CHEST LEFT HISTORY: L lower rib pain COMPARISON: Correlation is made with PA and lateral views of the chest dated 10/24/2023. FINDINGS: A single PA view of the chest and 3 views of the left ribs are submitted. The lungs are expanded and clear. There is no pleural effusion, pneumothorax, or pulmonary vascular congestion. The heart is normal in size. The left ribs are intact. No fracture is seen. XR/XR ribs LT min 3V w CXR1V IMPRESSION: No evidence of fracture of the left ribs. Electronically signed by: Felix Martel MD 09/16/2024 11:39 AM [facility] [place]
--- NOTE | ~2024-09-16 | CT_ITS ---
CLINICAL HISTORY: L flank pain. r o stone CT abdomen and pelvis without contrast Comparison: CT/SR - CT ABDOMEN PELVIS WO IV CON - 11/07/22 13:55 EDT Findings: No consolidation or effusion. Unremarkable gallbladder and solid organs. No urolithiasis. No bowel obstruction, pneumoperitoneum, or pneumatosis. Pelvic contents unremarkable. Normal appendix. No acute fracture. IMPRESSION: No acute findings. This document has been electronically signed by: Aquiles Reid MD on 09/16/2024 19:51:04
[2024-09-16 11:08] VITALS: BP 124/73; PULSE 89; RESP 20; TEMP 36.9; O2SAT 99; BMI 33.5
--- NOTE | 2024-09-16 11:08 | ED.BACK ---
HPI - Back Pain/Injury General Chief Complaint: Back Pain/Injury Stated Complaint: Back Spasm Time Seen by Provider: 09/16/24 20:19 Source: patient, RN notes reviewed and old records reviewed Mode of arrival: ambulatory History of Present Illness ED Provider: Katarina Novoa PA-C HPI Narrative: 43-year-old female with a past medical history asthma, insomnia, depression, migraines, seizures, presenting to the ED complaining of left-sided low back pain s/p stepping out of car yesterday. Denies direct injury, fall, trauma, numbness/tingling, weakness, incontinence/retention, hematuria/dysuria, abdominal pain Related Data Home Medications ?Medication ?Instructions ?Recorded ?Confirmed sumatriptan succinate 50 mg tablet 50 mg PO Q2-4H PRN 10/24/22 07/01/24 (Imitrex) Previous Rx's ?Medication ?Instructions ?Recorded ipratropium 0.5 mg-albuterol 3 mg 3 ml inhalation Q6H PRN wheezing 10/24/23 (2.5 mg base)/3 mL nebulization #180 mL soln meloxicam 15 mg tablet 15 mg PO DAILY PRN pain #30 tabs 02/03/24 mupirocin 2 % topical ointment 1 appl topical BID #22 grams 06/18/24 famotidine 40 mg tablet (Pepcid) 40 mg PO BEDTIME #90 tabs 06/20/24 montelukast 10 mg tablet 10 mg PO BEDTIME #30 tabs 06/22/24 (Singulair) albuterol sulfate 90 mcg/actuation 2 puff inhalation Q4-6H PRN 07/01/24 aerosol inhaler shortness of breath or wheezing #8.5 grams budesonide-formoterol HFA 160 2 puff inhalation BID #10.2 grams 07/01/24 mcg-4.5 mcg/actuation aerosol inhaler (Symbicort) acetaminophen 500 mg tablet 500 mg PO Q6H PRN fever or pain 09/16/24 (Tylenol Extra Strength) #14 tabs cyclobenzaprine 5 mg tablet 5 mg PO Q8H PRN pain (scale score 09/16/24 7-10) 5 days #14 tabs lidocaine 5 % topical patch 1 patch topical DAILY PRN pain #30 09/16/24 (Lidoderm) ea naproxen 500 mg tablet 500 mg PO BID PRN pain 10 days #20 09/16/24 tabs Allergies Allergy/AdvReac Type Severity Reaction Status Date / Time Seasonal Allergies Allergy Mild Itchy Eyes Verified 09/16/24 11:11 apple [Apple] Allergy Unknown LIPS SWELL Verified 09/16/24 11:11 Latex, Natural Rubber AdvReac Mild TOPICAL Verified 09/16/24 11:11 IRRITANT Review of Systems Review of Systems: Yes all other systems are reviewed and are negative Constitutional: Constitutional: Reports as per [facility] Past Medical History Attestation statement: The following information was validated with the patient. Source: old records reviewed Medical History Allergic conjunctivitis COVID-19 Well woman exam Transient visual loss of right eye Hair loss Facial dermatitis Contusion of left arm Elevated LFTs Loose stools Chronic cough Asthmatic bronchitis Cough Mild persistent asthma Dysplasia of cervix, low grade (MELVIN 1) GERD (gastroesophageal reflux disease) Recurrent respiratory infection Lumbar radicular pain Compression fracture of T11 vertebra Insomnia Vitamin D deficiency Pelvic abscess Metrorrhagia Kidney stones Depression Migraines Seizures Surgical History S/P ARVIN (total abdominal hysterectomy) History of bilateral tubal ligation Family History Family History Father Diabetes Hypertension CVD (cardiovascular disease) Stroke Hypercholesterolemia Mother Diabetes Hypertension Hypercholesterolemia Brother Hypertension Maternal Aunt Breast cancer Maternal Grandmother Cervical cancer Paternal Grandmother Breast cancer Paternal Uncle CVD (cardiovascular disease) Skin cancer Social History Social History Household Members: Family Housing: Apartment Do you presently have visiting nurse or other home services: No Alcohol intake: current Alcohol intake frequency: holidays/special occasions only Comment: 2x a month 5 beer Patient Tobacco Use Status: Never used Tobacco e-Cigarette/Vaping Use: Never Used Second Hand Smoke Exposure: No service: No Current occupational status: employed Sexual orientation: Straight/Heterosexual Gender identity: Female Cognitive needs: No Hearing needs: No Vision needs: Yes Physical Exam Vital Signs: Vital Signs: Last Vital Signs Temp 97.6 F 09/16/24 20:22 Pulse 75 09/16/24 20:22 Resp 15 09/16/24 20:22 BP 130/76 09/16/24 20:22 Pulse Ox 99 09/16/24 20:22 O2 Del Method Room Air 09/16/24 20:22 BMI result Body Mass Index 33.5 Const: General: cooperative, healthy appearing and no acute distress Orientation/consciousness: patient oriented x3 Limitations: no limitations HEENT: Head: Yes normal to inspection and Yes atraumatic Ears: hearing grossly normal bilaterally General nose exam: Normal external nose present Face and sinus: Yes normal facial exam Eyes: General: appearance normal, both eyes and all related structures EOM: EOMs intact bilaterally Neck: Neck: Yes normal visual inspection and Yes no meningeal signs Chest: Other: + reproducible left posterior lateral rib tenderness to palpation. No erythema/ecchymosis or flail chest Resp: Effort & Inspection: normal respiratory effort and no respiratory distress Cardio: Rate: regular rate GI: Inspection: Yes normal to inspection Palpation (GI): Soft to palpation, nontender, no guarding and not rigid : General: Yes CVA tenderness on the left Back/Spine/Pelvis: Other: No midline cervical/thoracic/lumbar spinous tenderness/step-off or deformity. Back: CVA tenderness Skin: Rashes: no rashes Wounds: no wounds Neuro: Other: Strength intact throughout. No saddle anesthesia. Sensation intact to light touch. Neurovascular intact distally General: patient oriented x3, tone normal, moves all extremities, no meningeal signs, no focal motor deficits and CN's II-XI intact bilaterally Cranial nerves: Yes CN's II-XII intact bilaterally Gait exam (Neuro): Antalgic gait present Motor exam (neuro): 5/5 motor strength present throughout Extrem: General: Yes normal to inspection Course Course Course Narrative: This is a Rapid Medical Exam performed in triage by Katarina Novoa PA-C. Full HPI, ROS and PE to be performed by primary ED provider. 43 yo F presenting to the ED c/o left-sided low back pain s/p stepping out of car yesterday. Denies injury, fall, radiation of pain, numbness, tingling, weakness, incontinence, abdominal pain, vomiting PE: + reproducible left posterior lateral rib tenderness to palpation. No erythema/ecchymosis. No flail chest. Abdomen is soft and nontender. Plan: UA, XR > patient reporting continued/worsening pain, described as contractions. UA with blood will obtain labs and CT for further eval to rule out stone -labs reassuring CT abdomen pelvis wo IV con IMPRESSION: No acute findings. XR ribs LT min 3V w CXR1V IMPRESSION: No evidence of fracture of the left ribs. Results discussed with patient including worrisome signs and symptoms and strict return precautions, and when to return to the emergency department. They verbalized understanding and feel safe for discharge at this time. Medications Administered Discontinued Medications Generic Name Dose Route Start Last Admin Trade Name Freq PRN Reason Stop Dose Admin Cyclobenzaprine HCl 10 mg 09/16/24 20:19 09/16/24 20:22 Cyclobenzaprine Hcl 10 Mg Tablet PO 09/16/24 20:20 10 mg ONCE ONE Administration Ibuprofen 600 mg 09/16/24 18:47 09/16/24 18:49 Ibuprofen 600 Mg Tablet PO 09/16/24 18:48 600 mg ONCE ONE Administration Medical Decision Making Medical Decision Making [facility] Narrative: 43-year-old female with a past medical history asthma, insomnia, depression, migraines, seizures, presenting to the ED complaining of left-sided low back pain s/p stepping out of car yesterday. On exam vital signs stable, NAD, nontoxic appearing, physical exam as noted above with reproducible left-sided posterior lateral rib tenderness and left CVAT. No red flag symptoms. Ambulating with antalgic gait. Concern for MSK pain/strain/spasming vs renal stone vs pyelo vs ? Fracture although no trauma. Low suspicion for cauda equina/cord compression, intrathoracic or intra-abdominal bleeding Plan: Rib x-rays, UA Please refer to course for remaining clinical decision making, interpretation of labs/imaging results, and discussions with consultants and/or family members. Differential Diagnosis Differential Diagnoses: The differential diagnosis associated with the presentation includes As above Admission/Observation Consideration of admission/observation: Escalation of care including admission/observation considered Lab Data [facility] Lab Attestation statement: I reviewed the patient's lab results. 09/16/24 17:30 09/16/24 17:30 Labs: Lab Results 09/16/24 09/16/24 Range/Units 11:27 17:30 WBC 9.4 (4.8-10.8) X10*3/uL RBC 4.21 (4.20-5.50) X10*6/uL Hgb 12.3 (12.0-16.0) g/dl Hct 38.0 (37.0-47.0) % MCV 90.3 (80.0-98.0) fL MCH 29.2 (27.0-33.0) pg MCHC 32.4 (31.0-35.0) g/dl RDW 13.6 (11.0-16.0) % Plt Count 364 (160-400) X10*3/uL MPV 9.5 (9.4-12.3) fL Immature Gran % (Auto) 0.3 (0.0-0.4) % Neut % (Auto) 59.8 (45-73) % Lymph % (Auto) 31.5 (20-40) % Stone % (Auto) 6.7 (2-11) % Eos % (Auto) 1.3 (0-4) % Baso % (Auto) 0.4 (0-2) % Lymph # (Auto) 3.0 (1.2-4.9) X10*3/uL Stone # (Auto) 0.6 (0.1-1.2) X10*3/uL Eos # (Auto) 0.1 (0.0-0.4) X10*3/uL Baso # (Auto) 0.0 (0.0-0.2) X10*3/uL Abs Immat Gran (auto) 0.03 (0.00-0.03) X10*3/uL Absolute Neuts (auto) 5.6 (2.0-8.3) x10*3/uL Absolute Nucleated RBC 0.000 (0.0-0.012) X10*3/uL Nucleated RBC % (auto) 0.0 (0.0-0.2) /100WBC Sodium 138 (135-145) mmol/L Potassium 4.1 (3.3-5.1) mmol/L Chloride 107 (96-108) mmol/L Carbon Dioxide 24 (22-29) mmol/L Anion Gap 11 L (12-20) BUN 9 (9-16) mg/dL Creatinine 0.66 (0.5-1.4) mg/dL Estim Creat Clear Calc 115.9 Estimated GFR > 60 Random Glucose 100 (60-115) mg/dL Calcium 8.6 D (8.4-10.2) mg/dL Magnesium 2.2 (1.6-2.6) mg/dL Total Bilirubin 0.3 (0.0-1.0) mg/dL Direct Bilirubin < 0.1 (0.0-0.5) mg/dL AST 16 (5-31) U/L ALT 15 (0-31) U/L Alkaline Phosphatase 76 (39-117) U/L Total Protein 7.8 (6.5-8.0) g/dL Albumin 4.0 (3.5-5.0) g/dL Lipase 22 (8-78) U/L Urine Color Dark Yellow Urine Appearance Cloudy Urine pH 5.5 (5.0-9.0) Ur Specific [place] >= 1.030 H (1.005-1.025) Urine Protein Trace (Neg-Trace) mg/dL Urine Glucose (UA) Negative (Negative) mg/dL Urine Ketones Trace (Negative) mg/dL Urine Blood Trace H (Negative) Urine Nitrite Negative (Negative) Ur Leukocyte Esterase Negative (Negative) Urine RBC 11-20 H (0-2) /HPF Urine WBC 0-5 (0-5) /HPF Ur Squamous Epith Cells 11-20 (0-2) /HPF Urine Bacteria 2+ (None Seen) Hyaline Casts 0-2 (0-2) /LPF Independent Interpretation I performed an independent interpretation of an: Plain X-Ray Radiology Impression Discussion of test interpretation with radiology: I have reviewed the radiologist's reading. External Record Review External record reviewed: Inpatient record, Office record, Outpatient record, Prior outpatient labs, Prior outpatient radiology, Primary care record and Outside ED record Tests considered The following testing was considered but not selected: As above Prescription Management I considered prescription management with: Pain Medication Chronic Conditions Patient?s care impacted by: Other Social Determinants Patient?s care significantly limited by Social Determinants of Health including: Other Social Determinant of Health Discharge Plan Discharge Clinical Impression: Low back pain, Microscopic hematuria Patient Disposition: Home, Self-Care Instructions: Hematuria (ED), Acute Low Back Pain (ED) Additional Instructions: Your pain is likely musculoskeletal Your blood work and CT scan are reassuring Your x-rays also reassuring Your urine does have blood in it, please follow up with her primary care doctor in regards to this Flexeril is a muscle relaxer, take at night as it makes you drowsy, do not drive, drink alcohol, or operate machinery while taking it Naproxen as an anti-inflammatory / pain medication, take with food Lidoderm patches are numbing patches, apply to painful area In addition take Tylenol at home If symptoms persist or worsen, pain becomes unbearable, you developed urinary retention or incontinence, or weakness return to the ED Prescriptions: New acetaminophen [Tylenol Extra Strength] 500 mg tablet 500 mg PO Q6H PRN (Reason: fever or pain) Qty: 14 0RF lidocaine [Lidoderm] 5 % adhesive patch,medicated 1 patch topical DAILY MDD remove after 12 hours PRN (Reason: pain) Qty: 30 0RF Rx Instructions: leave on most painful area for up to 12 hrs naproxen 500 mg tablet 500 mg PO BID PRN (Reason: pain) 10 Days Qty: 20 0RF cyclobenzaprine 5 mg tablet 5 mg PO Q8H PRN (Reason: pain (scale score 7-10)) 5 Days Qty: 14 0RF No Action ipratropium-albuterol 0.5 mg-3 mg(2.5 mg base)/3 mL solution for nebulization 3 ml inhalation Q6H PRN (Reason: wheezing) Qty: 180 0RF meloxicam 15 mg tablet 15 mg PO DAILY PRN (Reason: pain) Qty: 30 0RF famotidine [Pepcid] 40 mg tablet 40 mg PO BEDTIME Qty: 90 1RF montelukast [Singulair] 10 mg tablet 10 mg PO BEDTIME Qty: 30 0RF sumatriptan succinate [Imitrex] 50 mg tablet 50 mg PO Q2-4H PRN Rx Instructions: do not exceed 4 doses per 24 hrs mupirocin 2 % ointment 1 appl topical BID Qty: 22 0RF albuterol sulfate 90 mcg/actuation HFA aerosol inhaler 2 puff inhalation Q4-6H PRN (Reason: shortness of breath or wheezing) Qty: 8.5 0RF budesonide-formoterol [Symbicort] 160-4.5 mcg/actuation HFA aerosol inhaler 2 puff inhalation BID Qty: 10.2 3RF Print Language: Serbian
[2024-09-16 11:33] LABS: Appearance Urine Cloudy; Color Urine Dark Yellow; Glucose Urine UA Negative (Negative); Leukocyte Esterase Urine Negative (Negative); Nitrite Urine Negative (Negative); PH 5.5 (5.0-9.0); Specific Gravity - Urine >= 1.030 (1.005-1.025); UMIC TRIGGER UACC YES; Urine Blood Trace (Negative); Urine Ketones Trace mg/dL (Negative); Urine Protein Trace mg/dL (Neg-Trace)
[2024-09-16 11:41] LABS: Bacteria Urine 2+ (None Seen); Hyaline Casts Urine 0-2 /LPF (0-2); WBC Urine 0-5 /HPF (0-5)
[2024-09-16 17:33] LABS: MANUAL DIFF FLAG NO
[2024-09-16 17:37] LABS: Basophils Percent Auto 0.4 % (0-2); Eosinophils Absolute Auto 0.1 X10*3/uL (0.0-0.4); Eosinophils Percent Auto 1.3 % (0-4); Hemoglobin 12.3 g/dl (12.0-16.0); Imm Gran Abs Auto 0.03 X10*3/uL (0.00-0.03); Imm Gran Pct Auto 0.3 % (0.0-0.4); Lymphocytes Percent Auto 31.5 % (20-40); Mean Corpuscular HGB Conc 32.4 g/dl (31.0-35.0); Mean Corpuscular Hemoglobin 29.2 pg (27.0-33.0); Mean Corpuscular Volume 90.3 fL (80.0-98.0); Mean Platelet Volume 9.5 fL (9.4-12.3); Monocytes Absolute Auto 0.6 X10*3/uL (0.1-1.2); Monocytes Percent Auto 6.7 % (2-11); Neutrophils Absolute Auto 5.6 x10*3/uL (2.0-8.3); Neutrophils Percent Auto 59.8 % (45-73); Platelet Count 364 X10*3/uL (160-400); Red Blood Count 4.21 X10*6/uL (4.20-5.50); Red Cell Distribution Width 13.6 % (11.0-16.0); White Blood Count 9.4 X10*3/uL (4.8-10.8)
[2024-09-16 17:59] LABS: Alanine Aminotransferase 15 U/L (0-31); Alkaline Phosphatase 76 U/L (39-117); Anion Gap 11 (12-20); Aspartate Amino Transferase 16 U/L (5-31); Bilirubin Direct < 0.1 mg/dL (0.0-0.5); Bilirubin Total 0.3 mg/dL (0.0-1.0); Blood Urea Nitrogen 9 mg/dL (9-16); Calcium 8.6 mg/dL (8.4-10.2); Carbon Dioxide 24 mmol/L (22-29); Chloride 107 mmol/L (96-108); Creatinine Clr Calc Pharmacy 115.9; Estimated Glomerular Filt Rate > 60; Glucose Random 100 mg/dL (60-115); Lipase 22 U/L (8-78); Magnesium 2.2 mg/dL (1.6-2.6); Potassium 4.1 mmol/L (3.3-5.1); Sodium 138 mmol/L (135-145); Total Protein 7.8 g/dL (6.5-8.0)
[2024-09-16 18:47] VITALS: BP 125/79; PULSE 83; RESP 20; TEMP 36.7; O2SAT 100
[2024-09-16] MEDS: Ibuprofen 600 MG TABLET PO (18:49)
[2024-09-16 20:22] VITALS: BP 130/76; PULSE 75; RESP 15; TEMP 36.4; O2SAT 99
[2024-09-16] MEDS: Cyclobenzaprine HCl 10 MG TABLET PO (20:22)
[2024-09-16 20:30] VITALS: BP 130/76; PULSE 75; RESP 15; TEMP 36.4; O2SAT 99
== END 2024-09-16 20:31 | disposition home or self-care (01) ==
LOC: HO.ED 20:26
PROVIDERS: Physician Assistant; Emergency Provider Emergency Medicine; PCP Internal Medicine
DX: M54.50 Low back pain, unspecified (principal); R31.29 Other microscopic hematuria; R10.9 Unspecified abdominal pain; R07.81 Pleurodynia; Z79.899 Other long term (current) drug therapy
CPT/HCPCS: 36415; 71101; 74176; 80048; 80076; 81001; 83690; 83735; 85025; 99283; 99284

== ENCOUNTER → 2024-09-16 11:08 | Outpatient (BNV) | payer OTHER, SELFPAY | PROVIDERS: PCP Internal Medicine; Visit Provider Radiology Diagnostic Radiology | DX: R10.9 Unspecified abdominal pain (principal) | CPT/HCPCS: 71101; 74176 ==

== ENCOUNTER 2024-10-02 13:57 | Outpatient (AMB) | payer OTHER, SELFPAY ==
[2024-10-02 14:13] VITALS: BP 126/80; PULSE 91; O2SAT 95; BMI 34.7
--- NOTE | 2024-10-02 14:13 | A.OFFPC_ITS ---
Vital Signs 10/02/24 14:13 Height 5 ft 4 in Weight 202 lb BMI 34.7 BP 126/80 Blood Pressure Location Lt brachial Position Sitting Pulse 91 Pulse Source Pulse Oximeter Pulse Oximetry (%) 95 Oxygen Delivery Method Room Air Intake Visit Reasons: EDF [facility] 09/16 Back pain / Blood in Urine [employer]ipe [employer] Required: No Accompanied by: Self / Same As Patient Allergies Seasonal Allergies Allergy (Mild, Verified 10/02/24 14:28) Itchy Eyes apple [Apple] Allergy (Unknown, Verified 10/02/24 14:28) LIPS SWELL Latex, Natural Rubber Adverse Reaction (Mild, Verified 10/02/24 14:28) TOPICAL IRRITANT Medication List - Last Reconciled 10/02/24 by Ninfa Hart PA-C acetaminophen (Tylenol Extra Strength) 500 mg PO Q6H PRN albuterol sulfate 90 mcg/actuation 2 puffs inhalation Q4-6H PRN budesonide-formoterol 160-4.5 mcg/actuation (Symbicort) 2 puffs inhalation BID cyclobenzaprine 5 mg PO Q8H PRN 5 days famotidine (Pepcid) 40 mg PO BEDTIME ipratropium-albuterol 0.5 mg-3 mg(2.5 mg base)/3 mL 3 mL inhalation Q6H PRN lidocaine 5% (Lidoderm) 1 patch topical DAILY PRN MDD remove after 12 hours meloxicam 15 mg PO DAILY PRN montelukast (Singulair) 10 mg PO BEDTIME mupirocin 2% 1 appl topical BID naproxen 500 mg PO BID PRN 10 days sumatriptan succinate (Imitrex) 50 mg PO Q2-4H PRN Tobacco use date assessed: 10/02/24 Dental Screening Dental Screen Date: 10/02/24 Did you have a dental visit in the last 12 months?: Yes Did you have a dental problem in the last 6 months where you did not have access to dental care?: No Was dental information given to patient?: Patient has dentist HPI EDF [facility] 09/16 Back pain / Blood in Urine HPI Details 43-year-old female with past medical his tory of seizures, hypercholesterolemia, GERD, asthma last seen 06/2024 coming in for hospital follow up.? In review of the notes, patient was seen in [facility] ED 09/17/2024 for low back pain x-ray and CT were reassuring urine having blood in it recommended to follow up with PCP and given cyclobenzaprine for back pain. Presenting with acute lower back pain and microscopic hematuria. Her lower back pain, characterized by contractions-like spasms localized to the sides of the back, began after a sudden movement post-prolonged bed rest from a breast reduction surgery done in July. The pain has subsided since her recent ED visit. She has a chronic history of microscopic hematuria, evidenced since 2019, with increased traces noted in December, and has no accompanying symptoms like dysuria or visible hematuria. Blood was sporadically noticed on toilet tissue post-urination despite a complete hysterectomy, raising concerns about its source and chronicity. [facility] Medical History Allergic conjunctivitis COVID-19 Well woman exam Transient visual loss of right eye Hair loss Facial dermatitis Contusion of left arm Elevated LFTs Loose stools Chronic cough Asthmatic bronchitis Cough Mild persistent asthma Dysplasia of cervix, low grade (MELVIN 1) GERD (gastroesophageal reflux disease) Recurrent respiratory infection Lumbar radicular pain Compression fracture of T11 vertebra Insomnia Vitamin D deficiency Pelvic abscess Metrorrhagia Kidney stones Depression Migraines Seizures Surgical History S/P ARVIN (total abdominal hysterectomy) History of bilateral tubal ligation Family History Father Diabetes Hypertension CVD (cardiovascular disease) Stroke Hypercholesterolemia Mother Diabetes Hypertension Hypercholesterolemia Brother Hypertension Maternal Aunt Breast cancer Maternal Grandmother Cervical cancer Paternal Grandmother Breast cancer Paternal Uncle CVD (cardiovascular disease) Skin cancer Social History Household Members: Family Housing: Apartment Do you presently have visiting nurse or other home services: No Alcohol intake: current Alcohol intake frequency: holidays/special occasions only Comment: 2x a month 5 beer Patient Tobacco Use Status: Never used Tobacco e-Cigarette/Vaping Use: Never Used Second Hand Smoke Exposure: No service: No Current occupational status: employed Sexual orientation: Straight/Heterosexual Gender identity: Female Cognitive needs: No Hearing needs: No Vision needs: Yes Female Reproductive History Menstrual Age of Menarche: 10 Questionnaire PHQ-9 Over the last 2 weeks, how often have you been bothered by any of the following problems? 1. Little interest or pleasure in doing things: not at all 2. Feeling down, depressed, or hopeless: not at all 3. Trouble falling or staying asleep, or sleeping too much: not at all 4. Feeling tired or having little energy: not at all 5. Poor appetite or overeating: not at all 6. Feeling bad about yourself - or that you are a failure or have let yourself or your family down: not at all 7. Trouble concentrating on things, such as reading the newspaper or watching television: not at all 8. Moving or speaking so slowly that other people could have noticed. Or the opposite - being so fidgety or restless that you have been moving around a lot more than usual: not at all 9. Thoughts that you would be better off or of hurting yourself in some way: not at all Total score: 0 Depression Screening Interpretation: Negative Depression Screening Done: Yes 02294 - PHQ-9 Billing: Yes Source: Developed by Drs. Felix Menon, Shanon Dickey, Christian Mai and colleagues, with an educational tod from [employer]. Thrive Questionnaire Date Thrive assessed: 10/02/24 I am a: Patient What is your living situation today?: I have a steady place to live Within the past 12 months, did the food you bought not last and you didn't have the money to get more?: Never true Within the past 12 months, did you worry whether your food would run out before you got money to buy more?: Never true Do you have trouble paying for medicines?: No Do you have trouble getting transportation to medical appointments?: No Do you have trouble paying your heating and electricity bill?: No Do you have trouble taking care of your child, family member or friend?: No Do you have trouble with day-to-day activities such as bathing, preparing meals, shopping, managing finances, etc.?: No Are you currently unemployed and looking for a job?: No Are you interested in more education?: No Please select the resources that you would like help with: None Currently or been in a relationship where the following occur: No concerns reported THRIVE Score: 0 AUDIT C Alcohol Use Questionnaire (AUDIT-C) 1. How often do you have a drink containing alcohol?: Monthly or less 2. How many drinks containing alcohol do you have on a typical day when you are drinking?: 1 or 2 3. How often do you have six or more drinks on one occasion?: Less than monthly Total Score: 2 OMAR-7 AMB Questionnaire OMAR-7 Date OMAR - 7 assessed: 10/02/24 Feeling nervous, anxious, or on edge: 0 = Not at all Not being able to stop or control worryin = Not at all Worrying too much about different things: 0 = Not at all Trouble relaxin = Not at all Being so restless that it is hard to sit still: 0 = Not at all Becoming easily annoyed or irritable: 0 = Not at all Feeling afraid as if something awful might happen: 0 = Not at all Total OMAR-7 score (0-4 normal; 5-9 mild; 10-14 moderate; 15-21 severe): 0 Source: Developed by Drs. Felix Menon, Shanon Dickey, Christian Mai and colleagues, with an educational tod from [employer]. Review of Systems Const Denies body aches, Denies chills, Denies fever(s), Denies headache(s) and Denies poor appetite Eyes Reports no additional complaints ENT Denies dysphagia, Denies dizziness, Denies headache(s) and Denies odynophagia Card Denies chest pain, Denies syncope, Denies edema, Denies irregular heart rhythm, Denies lightheadedness and Denies dyspnea Resp Denies cough and Denies dyspnea GI Denies abdominal pain, Denies constipation, Denies dysphagia, Denies diarrhea, Denies nausea, Denies odynophagia and Denies vomiting Reports no additional complaints Musc Reports no additional complaints and Denies abnormal gait Skin/Breast Reports system reviewed and no additional complaints, except as documented Neuro Denies abnormal gait, Denies dizziness, Denies syncope and Denies headache(s) Psych Reports no additional complaints Physical exam (Primary Care) Vital Signs: Last Vital Signs Pulse 91 10/02/24 14:13 BP 126/80 10/02/24 14:13 Pulse Ox 95 10/02/24 14:13 Oxygen Delivery Method Room Air 02/28/25 14:13 BMI result Body Mass Index 34.7 Tobacco/Smoking Status: Tobacco use Status Tobacco use date assessed 10/02/24 10/02/24 14:19 Patient Tobacco Use Status Never used Tobacco 10/02/24 14:19 e-Cigarette/Vaping Use Never Used 10/02/24 14:19 PHQ-9: PHQ-9 Score PHQ-9: Total score 0 10/02/24 14:19 Depression Screening Interpretation: Negative Thrive Assessment: Date of Thrive Assessment Date Thrive assessed 10/02/24 10/02/24 14:19 Currently or been in a relationship where the following occur: No concerns reported Const General: cooperative, healthy appearing, comfortable and no acute distress Orientation/consciousness: patient oriented x3 HENMT Head: Yes normocephalic Ears: hearing grossly normal bilaterally General nose exam: Normal external nose present Eyes General: appearance normal, both eyes and all related structures Conjunctivae: conjunctivae normal Neck Neck: Yes full ROM and Yes no lymphadenopathy Resp Effort & Inspection: normal respiratory effort Auscultation: clear to auscultation bilaterally, no crackles, no rales, no rhonchi and no wheezes Cardio Rate: regular rate Rhythm: regular rhythm Skin General skin exam: no rashes or lesions noted Neuro General: patient oriented x3 Gait exam (Neuro): Normal gait present Extrem General: Yes normal to inspection, Yes full ROM and No edema Psych Affect: normal affect Attitude: cooperative Insight: Good insight present (Psych) Judgement: Good judgement present (Psych) Coding Level of Care Code Est Pt Level 3 (89740) Diagnoses GERD (gastroesophageal reflux disease) K21.9 Obesity with body mass index (BMI) of 30.0 to 39.9 E66.9 Hematuria R31.9 Low back pain M54.50 Additional Codes PHQ-9 - 10670 - PHQ-9 Billing: Yes ([id number]) Assessment & Plan Assessment & Plan (1) GERD (gastroesophageal reflux disease): Code(s): K21.9 - Gastro-esophageal reflux disease without esophagitis Category: Medical Plan: Avoid trigger foods such as citrus, tomato products, soda, caffeine, spicy foods and other foods that may be irritating to your stomach. Avoid laying flat 3-4 hours after eating and elevate the head of the bed 30 degrees to prevent acid from moving into the esophagus. (2) Obesity with body mass index (BMI) of 30.0 to 39.9: Code(s): E66.9 - Obesity, unspecified Category: Medical Plan: Healthy diet and regular exercise is encouraged. Referral placed to weight management clinic (3) Hematuria: Code(s): R31.9 - Hematuria, unspecified Category: Medical Plan: Referral placed to Urology at this time. The current plan involves referring the patient to a urologist for microscopic hematuria evaluation, considering further tests like an ultrasound if advised. (4) Low back pain: Code(s): M54.50 - Low back pain, unspecified Category: Medical Plan: Monitoring of her acute lower back pain indicates no urgent intervention, with symptom reduction through muscle relaxers. Plan Patient was informed and verbally consented to the use of an ambient scribe for clinic note documentation during this visit. This note was constructed using voice recognition software. While every effort has been made to ensure accuracy and casino host, still areas may have been included sometimes these areas may affect the content or meeting of the given symptoms. Total time spent caring for the patient today was 20 minutes. This includes time spent before the visit reviewing the chart, time spent during the visit, and time spent after the visit and documentation. Orders: Referrals Urology Referral R31.9 - Hematuria, unspecified Medical Weight Management Referral E66.9 - Obesity, unspecified
== END 2024-10-02 14:39 | disposition home or self-care (01) ==
PROVIDERS: PCP Internal Medicine
DX: K21.9 Gastro-esophageal reflux disease without esophagitis (principal); E66.9 Obesity, unspecified; Z68.34 Body mass index [BMI] 34.0-34.9, adult; R31.9 Hematuria, unspecified; M54.50 Low back pain, unspecified

== ENCOUNTER → 2024-10-02 13:57 | Outpatient (BNVA) | payer OTHER, SELFPAY | PROVIDERS: PCP Internal Medicine | DX: K21.9 Gastro-esophageal reflux disease without esophagitis (principal); M54.50 Low back pain, unspecified; R31.9 Hematuria, unspecified; E66.9 Obesity, unspecified; Z68.34 Body mass index [BMI] 34.0-34.9, adult; Z71.3 Dietary counseling and surveillance | CPT/HCPCS: 96127; 99212 ==

== ENCOUNTER 2025-05-25 16:12 | Emergency (ER) | payer SELFPAY ==
--- NOTE | ~2025-05-25 | XR_ITS ---
EXAMINATION: XR CHEST CLINICAL INFORMATION: cough COMPARISON: 09/16/2024. TECHNIQUE: 2 views of the chest were obtained. FINDINGS: The cardiac, hilar, and mediastinal contours are normal. The lungs are clear bilaterally. There is no pneumothorax or pleural effusion. There is no focal osseous or soft tissue abnormality. XR/XR chest 2V IMPRESSION: No active pulmonary disease. Electronically signed by: Frandy Serrano MD 05/25/2025 04:49 PM EDT
[2025-05-25 16:25] VITALS: BP 144/66; PULSE 100; RESP 20; TEMP 36.6; O2SAT 97; BMI 35.2
--- NOTE | 2025-05-25 16:25 | ED_ITS ---
HPI - General Adult General Chief complaint: Upper Respiratory Symptoms Stated complaint: cough/throat and chest pain when she coughs Time Seen by Provider: 05/25/25 20:02 Source: patient Mode of arrival: ambulatory Limitations: no limitations History of Present Illness ED Provider: Dr. Gris Wyatt HPI narrative: Patient comes to the emergency room complaining of cough, congestion for about 1 week. Patient states that she has asthma and has been using her inhaler more frequent than usual. Denies chest pain. Denies fever or chills. Related Data Home Medications ?Medication ?Instructions ?Recorded ?Confirmed sumatriptan succinate 50 mg tablet 50 mg PO Q2-4H PRN 10/24/22 10/02/24 (Imitrex) Previous Rx's ?Medication ?Instructions ?Recorded ipratropium 0.5 mg-albuterol 3 mg 3 ml inhalation Q6H PRN wheezing 10/24/23 (2.5 mg base)/3 mL nebulization #180 mL soln meloxicam 15 mg tablet 15 mg PO DAILY PRN pain #30 tabs 02/03/24 mupirocin 2 % topical ointment 1 appl topical BID #22 grams 06/18/24 montelukast 10 mg tablet 10 mg PO BEDTIME #30 tabs (Singulair) budesonide-formoterol HFA 160 2 puff inhalation BID #1 0.2 grams 07/01/24 mcg-4.5 mcg/actuation aerosol inhaler (Symbicort) acetaminophen 500 mg tablet 500 mg PO Q6H PRN fever or pain 09/16/24 (Tylenol Extra Strength) #14 tabs cyclobenzaprine 5 mg tablet 5 mg PO Q8H PRN pain (scal e score 09/16/24 7-10) 5 days #14 tabs lidocaine 5 % topical patch 1 patch topical DAILY PRN pain #30 09/16/24 (Lidoderm) ea naproxen 500 mg tablet 500 mg PO BID PRN pain 10 da ys #20 09/16/24 tabs albuterol sulfate 90 mcg/actuation 2 puff inhalation Q 4-6H PRN 10/04/24 aerosol inhaler shortness of breath or wheez ing #8.5 grams famotidine 40 mg tablet (Pepcid) 40 mg PO BEDTIME #90 tabs 10/19/24 codeine 8 mg-guaifenesin 200 mg/5 5 ml PO Q6H PRN coug h #473 mL 05/25/25 mL oral liquid prednisone 50 mg tablet 50 mg PO DAILY #4 tabs 05/25 Allergies Allergy/AdvReac Type Severity Reaction Status Date / Time Seasonal Allergies Allergy Mild Itchy Eyes Verified 05/25/25 16:26 apple (Apple) Allergy Unknown LIPS SWELL Verified 05/25/25 16:26 Latex, Natural Rubber AdvReac Mild TOPICAL Verified 05/25/25 16:26 IRRITANT Review of Systems Review of Systems: Constitutional : No Weight loss, No Fever, No Chills, No Night Sweats, No Fatigue, No Malaise ENT/Mouth : No Hearing loss, No Ear Pain, complaining of Nasal Congestion, No Sinus Pain, No Hoarseness, No sore throat, No Rhinorrhea, No Swallowing Difficulty Eyes: No Eye Pain, No Swelling, No Redness, No Foreign Body, No Discharge, No Vision Changes Cardiovascular : No Chest Pain, No SOB, No Dyspnea on Exertion, No Orthopnea, No Edema, No Palpitations Respiratory : Complaining of cough with sputum production, complaining of nasal congestion Gastrointestinal : No Nausea, No Vomiting, No Diarrhea, No Constipation, No abdominal Pain, No Hematochezia, No Melena Genitourinary : no irregular bleeding, No Dysuria, No Urinary Frequency, No Hematuria, No Urinary Incontinence, No Urgency, No Flank Pain, No Urinary Flow Changes, No Hesitancy Musculoskeletal : No joint pain, No Myalgias, No Joint Swelling Skin : No Skin Lesions, No rash Neuro : No Weakness, No Numbness, No Paresthesias, No Loss of Consciousness, No Dizziness, No Headache Psych : No Anxiety/Panic, No Depression, No SI/HI/AH/VH, No Social Issues, Heme/Lymph: No Bruising, No Bleeding,No Lymphadenopathy Endocrine : No Polyuria, No Polydipsia, No Temperature Intolerance PMFSH Past Medical History Medical History Allergic conjunctivitis COVID-19 Well woman exam Transient visual loss of right eye Hair loss Facial dermatitis Contusion of left arm Elevated LFTs Loose stools Chronic cough Asthmatic bronchitis Cough Mild persistent asthma Dysplasia of cervix, low grade (MELVIN 1) GERD (gastroesophageal reflux disease) Recurrent respiratory infection Lumbar radicular pain Compression fracture of T11 vertebra Insomnia Vitamin D deficiency Pelvic abscess Metrorrhagia Kidney stones Depression Migraines Seizures Surgical History S/P ARVIN (total abdominal hysterectomy) History of bilateral tubal ligation Family History Family History Father Diabetes Hypertension CVD (cardiovascular disease) Stroke Hypercholesterolemia Mother Diabetes Hypertension Hypercholesterolemia Brother Hypertension Maternal Aunt Breast cancer Maternal Grandmother Cervical cancer Paternal Grandmother Breast cancer Paternal Uncle CVD (cardiovascular disease) Skin cancer Social History Social History Household Members: Family Housing: Apartment Do you presently have visiting nurse or other home services: No Alcohol intake: current Alcohol intake frequency: does not drink Comment: 2x a month 5 beer Patient Tobacco Use Status: Never used Tobacco Smoked in Last 30 Days: No e-Cigarette/Vaping Use: Never Used Second Hand Smoke Exposure: No Use of substances other than those prescribed or required for medical reasons: No Advance Directives: No Advance Directives Information Provided: No Do you have a plan to hurt others: No Plan Patient : No service: No Current occupational status: employed Sexual orientation: Straight/Heterosexual Gender identity: Female Cognitive needs: No Hearing needs: No Vision needs: Yes Physical Exam ED Exam Exam: Appearance: Alert. Oriented X3. No acute distress. Eyes: Pupils equal, round and reactive to light. ENT: Erythematous oropharynx, no obvious abscesses or exudates. Neck: Normal inspection. Neck supple. No lymph nodes noted. No crepitus CVS: Normal heart rate and rhythm. Pulses normal. Normal S1 and S2 Respiratory: No respiratory distress. Breath sounds normal. No Wheezing. No rales Abdomen: Soft and nontender. No rigidity. No distention. Skin: Skin warm and dry. Normal skin color. Normal skin turgor. Extremities: No lower extremity edema. No Lacerations. No Rash Neuro: Oriented X 3. No motor deficit. No sensory deficit. Moving all extremities. No slurred speech. CN 2 through 12 grossly intact Psych: calm, cooperative, normal affect Vital Signs: Vital Signs - 24 hr 05/25/25 16:25 05/25/25 19:43 05/25/25 20:04 Temperature 97.8 F 98.3 F Pulse Rate 100 87 Respiratory Rate 20 16 Blood Pressure 144/66 H 149/79 H Pulse Oximetry 97 92 96 Oxygen Delivery Method Room Air Room Air Room Air BMI result Body Mass Index 35.2 Course Course Course Narrative: RME, this is a rapid medical exam performed by Ziyad Jolly please refer to primary provider for complete H&P- 44-year-old female presents for cough, shortness of breath, congestion. Symptoms started 1 week ago. She reports that she had a COVID test that was negative today. Plan for chest x-ray, flu swab and strep Medical Decision Making Medical Decision Making [facility] Narrative: My interpretation of labs: Patient tested negative for influenza, COVID, and strep Chest x-ray negative At this time, patient is not wheezing, patient's oxygen saturation 97% on room air. Patient getting p.o. Tessalon Perles and prednisone Patient likely has bronchitis, discussed with the patient that the cough may last for 6-8 weeks gradually improving. Lab Data [facility] Lab Attestation statement: I reviewed the patient's lab results. Labs: Lab Results 05/25/25 Range/Units 17:07 Influenza Type A (GABY) Negative (Negative) Influenza Type B (GABY) Negative (Negative) Influenza A & B Note See Note S. pyogenes GrpA GABY Negative (Negative) Independent Interpretation I performed an independent interpretation of an: Plain X-Ray Radiology Impression Discussion of test interpretation with radiology: I have reviewed the radiologist's reading. Radiologist Impression: The cardiac, hilar, and mediastinal contours are normal. The lungs are clear bilaterally. There is no pneumothorax or pleural effusion. There is no focal osseous or soft tissue abnormality. XR/XR chest 2V IMPRESSION: No active pulmonary disease. Discharge Plan Discharge Clinical Impression: Acute viral bronchitis, Asthma Patient Disposition: Home, Self-Care Instructions: Acute Bronchitis (ED) Additional Instructions: Please follow-up with your primary care physician tomorrow. If you have any worsening or new symptoms, please return to the emergency room or call 911 Prescriptions: New codeine-guaifenesin 8-200 mg/5 mL liquid 5 ml PO Q6H PRN (Reason: cough) Qty: 473 0RF prednisone 50 mg tablet 50 mg PO DAILY Qty: 4 0RF No Action ipratropium-albuterol 0.5 mg-3 mg(2.5 mg base)/3 mL solution for nebulization 3 ml inhalation Q6H PRN (Reason: wheezing) Qty: 180 0RF meloxicam 15 mg tablet 15 mg PO DAILY PRN (Reason: pain) Qty: 30 0RF montelukast [Singulair] 10 mg tablet 10 mg PO BEDTIME Qty: 30 0RF albuterol sulfate 90 mcg/actuation HFA aerosol inhaler 2 puff inhalation Q4-6H PRN (Reason: shortness of breath or wheezing) Qty: 8.5 0RF famotidine [Pepcid] 40 mg tablet 40 mg PO BEDTIME Qty: 90 1RF acetaminophen [Tylenol Extra Strength] 500 mg tablet 500 mg PO Q6H PRN (Reason: fever or pain) Qty: 14 0RF lidocaine [Lidoderm] 5 % adhesive patch,medicated 1 patch topical DAILY MDD remove after 12 hours PRN (Reason: pain) Qty: 30 0RF Rx Instructions: leave on most painful area for up to 12 hrs naproxen 500 mg tablet 500 mg PO BID PRN (Reason: pain) 10 Days Qty: 20 0RF cyclobenzaprine 5 mg tablet 5 mg PO Q8H PRN (Reason: pain (scale score 7-10)) 5 Days Qty: 14 0RF sumatriptan succinate [Imitrex] 50 mg tablet 50 mg PO Q2-4H PRN Rx Instructions: do not exceed 4 doses per 24 hrs mupirocin 2 % ointment 1 appl topical BID Qty: 22 0RF budesonide-formoterol [Symbicort] 160-4.5 mcg/actuation HFA aerosol inhaler 2 puff inhalation BID Qty: 10.2 3RF Print Language: Urdu
[2025-05-25 17:44] LABS: IDNOW Serial# 152EDE1D; IDNOW Serial# 16C4AD1C; Influenza B2 Negative (Negative); Strep A Nucleic Acid Negative (Negative)
[2025-05-25 19:43] VITALS: BP 149/79; PULSE 87; RESP 16; TEMP 36.8; O2SAT 92
[2025-05-25 20:04] VITALS: O2SAT 96
[2025-05-25 21:05] VITALS: BP 148/78; PULSE 78; RESP 19; TEMP 36.8; O2SAT 99
== END 2025-05-25 21:06 | disposition home or self-care (01) ==
PROVIDERS: Physician Assistant; Emergency Provider Emergency Medicine; PCP Internal Medicine
DX: J20.9 Acute bronchitis, unspecified (principal); J45.909 Unspecified asthma, uncomplicated; R05.9 Cough, unspecified; J02.9 Acute pharyngitis, unspecified; R07.9 Chest pain, unspecified
CPT/HCPCS: 71046; 87502; 87651; 99283; 99284

== ENCOUNTER → 2025-05-25 16:25 | Outpatient (BNV) | payer SELFPAY | PROVIDERS: PCP Internal Medicine; Visit Provider Radiology Diagnostic Radiology | DX: R05.9 Cough, unspecified (principal) | CPT/HCPCS: 71046 ==